=== PATIENT | female | born 1975 | race Caucasian/White ===

== ENCOUNTER 2023-11-29 13:11 | Emergency (ER) | payer BC, SELFPAY ==
[2023-11-29 13:14] VITALS: BP 135/89
--- NOTE | 2023-11-29 13:56 | ED.GENMED ---
History of Present Illness
General
Chief Complaint: Headache
Source: patient and family
Time Seen by Provider: 11/29/23 13:34
Travel History
Have you had any contact with someone who has COVID-19?: No
Do you have any symptoms of coronavirus? Fever > 100 degrees, chills, cough, shortness of breath, sore throat, loss of taste or smell, muscle aches, or headache?: No
History of Present Illness
History of Present Illness:
48-year-old female with past medical history of lupus, migraine, diverticulitis/diverticulosis presenting to the emergency department for evaluation of a migraine headache described to be diffuse, frontal, constant and accompanied with nausea and
vomiting since yesterday. Patient started on Nurtec about 2 weeks ago and taking this every other day but this did not provide her with any relief. Patient took some additional ibuprofen today but symptoms persisted prompting her to come to the ER
for further evaluation. Patient does seem to believe that her nausea and vomiting is a little bit improved now compared to yesterday. Patient is currently scheduled to get an MRI of the head on December 11 as an outpatient as part of this workup. She
notes that her migraine headaches seem to start when she had a lumbar puncture back in February 2023. She has been experiencing other symptoms including tinnitus, dizziness, weakness, facial flushing. She states that she has had extensive outpatient
labs through her acid tank liner, neurologist and primary care provider but without any specific etiology for her symptoms. Also of note patient has an appointment with her acid tank liner scheduled for tomorrow.
Past History
Past History
ED Past Medical History: Asthma, Other (Reynauds, lupus, trigeminal neuralgia) and Other (IBS, diverticulosis, diverticulitis)
ED Past Surgical History: Gynecological
Social History
Tobacco: Non-smoker
Alcohol: None
Drug: None
Personal:
Living: with family
Employment: Employed
Review of Systems
Review of Systems
All Other Systems: ROS reviewed and negative except as documented in HPI and ROS
Phy Exam
Physical Exam
Physical Exam:
GENERAL: Alert , in no apparent distress
EYE: pupils equal and reactive, 4 mm bilateral, EOMI
NECK: Supple
ENT: o/p clr, mmm.
CARDIAC: Regular rate and rhythm .
LUNGS: Clear breath sounds bilaterally, no acute respiratory distress, no wheezes/rales/rhonchi
NEUROLOGICAL: Alert and oriented, no focal neuro deficits, moves all extremities, finger-nose intact, [id number] intact, no aphasia or dysarthria
SKIN: Warm and dry, skin intact.
MUSCULOSKELETAL: well perfused.
PSYCH: Normal and appropriate interaction.
Scores
Heart Failure Risk
Heart Failure Risk Score: Not Applicable
Heart Score for Chest Pain Patients
STEMI patient?: Not applicable
Withdrawal Assessment of Alcohol
Withdrawal Assessment Completed?: Not applicable
Course
Orders/Labs/Results
Orders:
Orders
11/29/23 13:55
0.9% Sodium Chloride 1000 ml [Nss] 1,000 ml IV BOLUS
Dexamethasone Sod Phosphate [Decadron] 10 mg IV NOW STA
Diphenhydramine [Benadryl] 25 mg IV NOW STA
Metoclopramide [Reglan] 10 mg IV NOW STA
11/29/23 13:56
CT Head W/o Iv Contrast Urgent
Comment:
Reason For Exam: headache
Test Result ONCE
11/29/23 14:12
Complete Blood Count/With Diff Urgent
Comprehensive Metabolic Panel Urgent
HCG, Serum Qualitative Screen Urgent
11/29/23 14:12
11/29/23 14:12
Vital Signs
Initial and Last Documented VS:
Initial Vital Signs
Temp Pulse Resp BP Pulse Ox
98.1 F 94 18 135/89 99
11/29/23 13:14 11/29/23 13:14 11/29/23 13:14 11/29/23 13:14 11/29/23 13:14
Last Documented Vital Signs
Temp Pulse Resp BP Pulse Ox
98.1 F 91 18 128/93 100
11/29/23 13:14 11/29/23 14:23 11/29/23 14:23 11/29/23 14:23 11/29/23 14:23
MDM/Problems Addressed
Differential Diagnosis Includes:
Exacerbation of migraine headache, less concern for secondary causes of headache such as intracranial bleeding or mass, exacerbation of chronic rheumatologic medical complication
MDM/Problems Addressed:
48-year-old female with past medical history of migraines presenting to the emergency department for evaluation of an exacerbation of her migraine. Patient is scheduled to see her acid tank liner tomorrow and a follow-up visit as well as has an MRI
scheduled of the head within the coming 2 weeks. Patient notes that she really has not been to the emergency department for headache/migraine in the past. Discussed various different treatment options with the patient and we will trial Reglan,
Benadryl, Decadron and fluids. Will also obtain a CT scan of the head at patient request. Anticipate following improvement of headache patient will be able to be discharged home.
Chronic conditions affecting care: Neurological disorder
Acute Exacerbation and/or Progression of Chronic Illness: Neurological disorder
*Radiology
Radiology exam reviewed: radiology read reviewed (Unremarkable head CT)
*Pulse Oximetry
Patient hypoxic: no
*Critical Care Note
Total Time (30-74mins, 75-104mins- exclusive of procedures): Not Applicable
Data Reviewed
Review of Other/Old Records Reveals: Labs and Records
Source: patient
Patient Management
Escalation/DeEscalation of care consider admission/obs:
Patient reporting full resolution of her headache. She was able to ambulate with a steady gait and in no acute distress. Patient has follow-up with her acid tank liner tomorrow as well as she placed a call to her neurologist while in the emergency
department to expedite follow-up which she originally had scheduled for December 13. Patient aware of return precautions to the ED
ED Attending Note
-
Portions of this chart may have been created with voice recognition software.� Occasional wrong word or��sound alike� substitutions may have occurred due to the inherent limitations of voice recognition software.
Discharge Plan
Departure
Patient Disposition: Home (Routine Discharge)
Date of Disposition: 11/29/23
Time of Disposition: 16:42
Patient with high blood pressure during this ER visit?: No
Discharge Problem:
Headache
Instructions: Headache, Adult (DC)
Prescriptions:
No Action
hydroxychloroquine 200 MG tablet
300 mg PO DAILY
loratadine 10 MG tablet
10 mg PO DAILY
cetirizine [Zyrtec] 10 mg Tablet
10 mg PO DAILY
prednisone 5 mg Tablet
5 mg PO DIRECTED
pantoprazole [Protonix] 40 mg Tablet,Delayed Release (Dr/Ec)
40 mg PO DAILY
hyoscyamine sulfate [Hyoscyamine Compound] 0.125 mg/5 mL Elixir
0.125 mg PO Q6H PRN (Reason: nausea)
pregabalin [Lyrica] 75 mg Capsule
75 mg PO BID
amitriptyline 50 mg tablet
50 mg PO HS
alprazolam [Xanax] 0.5 mg Tablet
0.25 mg PO BID PRN (Reason: anxiety)
rizatriptan 10 mg tablet
10 mg PO ONCE PRN (Reason: migraine headache) Qty: 20 0RF
Rx Instructions:
May repeat dose x1 after at least 2 hours
Referrals:
Nino Bose MD [Family Provider] -
Interventions
Interventions:
*Risk Screen - Suicide Last Done: 11/29/23 13:14
*General Assessment Last Done: 11/29/23 13:14
*Neglect/Abuse Screening Last Done: 11/29/23 13:14
ED- Fall Risk Assessment Last Done: 11/29/23 14:22
*Nursing Disposition Last Done: 11/29/23 16:56
ED- Neurological Assessment Last Done: 11/29/23 14:22
Discharge Date and Time
Discharge Date/Time: 11/29/23 17:00
Print Language: LUXEMBOURGER
[2023-11-29] MEDS: NSS 1000 IV (14:11)
[2023-11-29] MEDS: BENADRYL 25 MG IV (14:13)
[2023-11-29] MEDS: REGLAN 10 MG IV (14:15)
[2023-11-29] MEDS: DECADRON 10 MG IV (14:15)
[2023-11-29 14:23] VITALS: BP 128/93
[2023-11-29 14:25] LABS: % Basophils 0.4 % (0-2); % Immature Granulocytes 0.2 % (0-0.5); % Lymphocytes 28.6 % (20.5-51.1); % Monocytes 6.9 % (1.7-9.3); % Neutrophils 59.9 % (42.2-75.2); Absolute Eosinophils 0.2 10^3/uL (0-0.7); Absolute Lymphocytes 1.6 10^3/uL (1.2-3.4); Absolute Monocytes 0.4 10^3/uL (0.1-0.6); Absolute Neutrophils 3.3 10^3/uL (1.4-6.5); Hematocrit 38.4 % (37.0-47.0); Hemoglobin 12.8 g/dL (12.0-16.0); Mean Corp Hgb Conc. 33.3 g/dL (33.0-37.0); Mean Corpuscular Volume 89.9 fL (81.0-99.0); Nucleated Red Blood Cells % 0 %; Platelet Count 264 10^3/uL (130-400); Red Blood Cell Count 4.27 10^6/uL (4.20-5.40); Red Cell Dist. Width 12.9 % (11.5-14.5); White Blood Cell Count 5.5 10^3/uL (4.8-10.8)
[2023-11-29 14:38] LABS: HCG, Serum Qualitative Screen Negative
[2023-11-29 14:43] LABS: ALT (SGPT) 13 U/L (0-35); AST (SGOT) 21 U/L (14-36); Albumin 4.3 g/dl (3.5-5.0); Alkaline Phosphatase 59 U/L (38-126); Blood Urea Nitrogen 8 mg/dl (7-17); Calcium 9.7 mg/dl (8.4-10.2); Carbon Dioxide 30 mmol/L (22-30); Chloride 104 mmol/L (98-107); Glucose 95 mg/dl (70-99); Potassium 4.5 mmol/L (3.5-5.1); Sodium 139 mmol/L (135-145); Total Bilirubin 0.6 mg/dl (0.2-1.3); Total Protein 6.6 g/dl (6.3-8.2); eGFR > 60.00
== END 2023-11-29 17:00 | disposition home or self-care (01) ==
LOC: EMR 13:11
PROVIDERS: Physician Assistant Medical; EMERGENCY PHYSICIAN Emergency Medicine; FAMILY PHYSICIAN Family Medicine
DX: R51.9 Headache, unspecified (principal); R11.2 Nausea with vomiting, unspecified; R42 Dizziness and giddiness; R53.1 Weakness
CPT/HCPCS: 99284; 96374; 96375 ×2; 96361; 70450; 80053; 84703; 85025

== ENCOUNTER → 2023-12-07 14:40 | Outpatient (REF) | payer BC, SELFPAY | LOC: HWRAD 14:40 | PROVIDERS: ATTENDING PHYSICIAN Internal Medicine Endocrinology, Diabetes & Metabolism; FAMILY PHYSICIAN Family Medicine | DX: E06.3 Autoimmune thyroiditis (principal) | CPT/HCPCS: 76536 ==

== ENCOUNTER → 2023-12-20 06:37 | Day surgery (SDC) | payer BC, SELFPAY | LOC: GI 06:37 | PROVIDERS: ATTENDING PHYSICIAN Internal Medicine | DX: R12 Heartburn (principal); R13.14 Dysphagia, pharyngoesophageal phase; R09.A2 Foreign body sensation, throat; K44.9 Diaphragmatic hernia without obstruction or gangrene; R11.10 Vomiting, unspecified; K29.50 Unspecified chronic gastritis without bleeding | CPT/HCPCS: 43249; 43239; 88305; 88342 ==

== ENCOUNTER → 2023-12-27 13:04 | Outpatient (REF) | payer BC, SELFPAY | LOC: RAD 13:04 | PROVIDERS: ATTENDING PHYSICIAN Internal Medicine; FAMILY PHYSICIAN Family Medicine | DX: R11.10 Vomiting, unspecified (principal) | CPT/HCPCS: 71046 ==

== ENCOUNTER 2024-01-03 09:40 | Emergency (ER) | payer BC, SELFPAY ==
[2024-01-03 09:59] VITALS: BP 129/96
--- NOTE | 2024-01-03 11:17 | ED.GENMED ---
History of Present Illness
General
Chief Complaint: Cold/Flu/URI Symptoms
Source: patient
Exam Limitations: none
Time Seen by Provider: 01/03/24 10:59
Nursing documentation reviewed up to this point in time: agreed with
Travel History
Have you had any contact with someone who has COVID-19?: Yes
Comment: self
Do you have any symptoms of coronavirus? Fever > 100 degrees, chills, cough, shortness of breath, sore throat, loss of taste or smell, muscle aches, or headache?: Yes
Symptoms:: sore throat
History of Present Illness
History of Present Illness:
This is a 48-year-old female with past medical history of lupus, asthma, IBS, chronic dysphagia presenting emergency department today with concerns of possible dehydration. Patient states that she is COVID-positive and has been sick for the past 5
days. Patient states that she started to feel better, however states that because of her chronic dysphagia, has not been able to get enough fluids in. She called her primary care doctor Dr. Pérez who advised Emergency Department evaluation to get
IV fluids and to check labs. Patient denies any shortness of breath, any chest pain, fevers or chills. Patient is currently being worked up by Dr. Valero for the dysphagia--she said she gets a lot of reflux and recently had an esophageal dilation.
She also notes a sore throat and some red sores in the back of the throat. She denies tongue and lip swelling.
Past History
Past History
ED Past Medical History: Asthma, Other (Reynauds, lupus, trigeminal neuralgia) and Other (IBS, diverticulosis, diverticulitis)
ED Past Surgical History: Gynecological
Social History
Tobacco: Non-smoker
Alcohol: None
Drug: None
Personal:
Living: with family
Employment: Employed
Review of Systems
Review of Systems
All Other Systems: ROS reviewed and negative except as documented in HPI and ROS
Phy Exam
Physical Exam
Physical Exam:
General: Patient is well appearing and in no acute distress; non-toxic
Skin: Warm and dry, no rashes or lesions
Head: Normocephalic, atraumatic
Eyes: Sclera non-icteric. EOMs intact. PERRLA.
Mouth: Dentition intact. Uvula midline. No tonsillar hypertrophy or exudates. Erythema noted in the posterior pharynx.
Cardiac: Regular rate and rhythm, no murmurs
Peripheral Vascular: No lower extremity swelling or edema
Pulm: Normal respiratory effort, no wheezes, rales, or rhonchi
Abdomen: No abdominal tenderness
Neuro: CN II-XII intact, no focal neurologic deficits.
Psychiatric: Appropriate mood and affect.
Course
Orders/Labs/Results
Orders:
Orders
01/03/24 11:21
Complete Blood Count/With Diff Urgent
0.9% Sodium Chloride 1000 ml [Nss] 1,000 ml IV BOLUS
01/03/24 11:22
Comprehensive Metabolic Panel Urgent
Magnesium Urgent
01/03/24 13:16
Rapid Strep Group A Urgent
PORTER Source: Throat/Pharynx
Specimen Description:
Date Specimen was Collected: 01/03/24
Time Specimen was Collected: 13:15
Abnormal Lab Results
01/03/24
11:21
WBC 3.3 L 10^3/uL
(4.8-10.8)
MCHC 32.3 L g/dL
(33.0-37.0)
MPV 10.5 H fL
(7.4-10.4)
01/03/24 11:21
01/03/24 11:22
Vital Signs
Initial and Last Documented VS:
Initial Vital Signs
Temp Pulse Resp BP Pulse Ox
98.4 F 103 20 129/96 99
01/03/24 09:59 01/03/24 09:59 01/03/24 09:59 01/03/24 09:59 01/03/24 09:59
Last Documented Vital Signs
Temp Pulse Resp BP Pulse Ox
98.4 F 81 18 116/81 100
01/03/24 09:59 01/03/24 13:57 01/03/24 13:57 01/03/24 13:57 01/03/24 13:57
MDM/Problems Addressed
Differential Diagnosis Includes:
Differentials include COVID, dehydration, achalasia, asthma exacerbation, strep pharyngitis, esophageal web or stricture
MDM/Problems Addressed:
COVID/dehydration, chronic dysphagia,
Chronic conditions affecting care:
Raynaud's, asthma, lupus, chronic dysphagia
*Pulse Oximetry
Patient hypoxic: no
*Critical Care Note
Total Time (30-74mins, 75-104mins- exclusive of procedures): Not Applicable
Data Reviewed
Review of Other/Old Records Reveals: Records (Reviewed endoscopy from 12/20/2023)
Further Testing Considered But Not Given:
Consider chest x-ray for evaluation pneumonia however patient states that she is turning a corner with her COVID and she has no shortness of breath or chest pain, patient is not hypoxic
Patient Management
Escalation/DeEscalation of care consider admission/obs:
This is a 48-year-old female with past medical history of lupus, asthma, IBS, chronic dysphagia presenting emergency department today with concerns of possible dehydration. Patient states that he has had COVID the past few days and starting to feel
better by her primary care provider sent her here for IV fluids because of the fact that she has not eat or drink as much because of her chronic dysphagia. Here in emergency department, she is very well-appearing. CBC and CMP are unremarkable. I
did observe her drink water with no problem. Patient electrolytes are within normal limits. Case was reviewed with my attending Dr. Sandoval. Also spoke to tie bucker on-call who is comfortable sending patient home with further evaluation
workup as outpatient. Discussed possible admission considering patient's symptoms have been persistent and worsening recently, however patient states that she can stay adequately hydrated at home and eat soft foods until she is able to follow-up
again. Patient does have a barium swallow scheduled for tomorrow. Patient stable for discharge
Update Note
Update Note:
12:56 pm--patient states that she feels
ED Attending Note
-
Portions of this chart may have been created with voice recognition software.� Occasional wrong word or��sound alike� substitutions may have occurred due to the inherent limitations of voice recognition software.
Discharge Plan
Departure
Patient Disposition: Home (Routine Discharge)
Date of Disposition: 01/03/24
Time of Disposition: 13:44
Patient with high blood pressure during this ER visit?: No
Condition: Good
Discharge Problem:
COVID-19
Instructions: Viral Syndrome (DC), Dehydration, Adult ED
Prescriptions:
No Action
hydroxychloroquine 200 MG tablet
300 mg PO DAILY
loratadine 10 MG tablet
10 mg PO DAILY
cetirizine [Zyrtec] 10 mg Tablet
10 mg PO DAILY
prednisone 5 mg Tablet
5 mg PO DIRECTED
pantoprazole [Protonix] 40 mg Tablet,Delayed Release (Dr/Ec)
40 mg PO DAILY
hyoscyamine sulfate [Hyoscyamine Compound] 0.125 mg/5 mL Elixir
0.125 mg PO Q6H PRN (Reason: nausea)
pregabalin [Lyrica] 75 mg Capsule
75 mg PO BID
amitriptyline 50 mg tablet
50 mg PO HS
alprazolam [Xanax] 0.5 mg Tablet
0.25 mg PO BID PRN (Reason: anxiety)
rizatriptan 10 mg tablet
10 mg PO ONCE PRN (Reason: migraine headache) Qty: 20 0RF
Rx Instructions:
May repeat dose x1 after at least 2 hours
Referrals:
Nino Bose MD [Family Provider] -
Activity Restrictions/Additional Instructions:
Your rapid strep was negative.
Please return emergency department should you develop intractable vomiting, complete inability to tolerate oral intake, lip swelling, tongue swelling, difficulty breathing, persistent fevers, lightheadedness, dizziness, or other concerning signs or
symptoms to you.
Please follow-up with your GI provider and your PCP.
Interventions
Interventions:
*Risk Screen - Suicide Last Done: 01/03/24 11:44
*General Assessment Last Done: 01/03/24 11:44
*Neglect/Abuse Screening Last Done: 01/03/24 11:44
ED- Fall Risk Assessment Last Done: 01/03/24 14:25
*ED COVID-19 Vaccine History Last Done: 01/03/24 11:44
*Nursing Disposition Last Done: 01/03/24 14:25
ED- Pulmonary Assessment Last Done: 01/03/24 11:43
Discharge Date and Time
Discharge Date/Time: 01/03/24 14:33
Print Language: ANGUILLAN
[2024-01-03] MEDS: NSS 1000 IV (11:41)
[2024-01-03 12:12] LABS: ALT (SGPT) 18 U/L (0-35); AST (SGOT) 29 U/L (14-36); Albumin 4.5 g/dl (3.5-5.0); Alkaline Phosphatase 57 U/L (38-126); Blood Urea Nitrogen 8 mg/dl (7-17); Calcium 9.2 mg/dl (8.4-10.2); Carbon Dioxide 30 mmol/L (22-30); Chloride 103 mmol/L (98-107); Glucose 85 mg/dl (70-99); Magnesium 2.2 mg/dl (1.6-2.3); Potassium 4.3 mmol/L (3.5-5.1); Sodium 141 mmol/L (135-145); Total Bilirubin 0.5 mg/dl (0.2-1.3); Total Protein 7.1 g/dl (6.3-8.2); eGFR > 60.00
[2024-01-03 12:20] LABS: % Basophils 0.6 % (0-2); % Lymphocytes 35.5 % (20.5-51.1); % Monocytes 7.6 % (1.7-9.3); % Neutrophils 56.3 % (42.2-75.2); Absolute Lymphocytes 1.2 10^3/uL (1.2-3.4); Absolute Monocytes 0.3 10^3/uL (0.1-0.6); Absolute Neutrophils 1.8 10^3/uL (1.4-6.5); Hematocrit 42.4 % (37.0-47.0); Hemoglobin 13.7 g/dL (12.0-16.0); Mean Corp Hgb Conc. 32.3 g/dL (33.0-37.0); Mean Corpuscular Hgb 29.5 pg (27.0-31.0); Mean Corpuscular Volume 91.2 fL (81.0-99.0); Mean Platelet Volume 10.5 fL (7.4-10.4); Nucleated Red Blood Cells % 0 %; Platelet Count 227 10^3/uL (130-400); Red Blood Cell Count 4.65 10^6/uL (4.20-5.40); Red Cell Dist. Width 12.9 % (11.5-14.5); White Blood Cell Count 3.3 10^3/uL (4.8-10.8)
[2024-01-03 13:57] VITALS: BP 116/81
== END 2024-01-03 14:33 | disposition home or self-care (01) ==
LOC: EMR 09:40
PROVIDERS: Physician Assistant; EMERGENCY PHYSICIAN Emergency Medicine; FAMILY PHYSICIAN Family Medicine
DX: U07.1 COVID-19 (principal); M32.9 Systemic lupus erythematosus, unspecified; J45.909 Unspecified asthma, uncomplicated; K58.9 Irritable bowel syndrome, unspecified; R13.10 Dysphagia, unspecified; I73.00 Raynaud's syndrome without gangrene; K57.90 Diverticulosis of intestine, part unspecified, without perforation or abscess without bleeding; Z91.041 Radiographic dye allergy status; Z91.040 Latex allergy status; Z91.048 Other nonmedicinal substance allergy status
CPT/HCPCS: 99284; 96360; 80053; 83735; 85025; 87070; 87880

== ENCOUNTER → 2024-01-04 09:40 | Outpatient (REF) | payer BC, SELFPAY | LOC: RST 09:40 | PROVIDERS: ATTENDING PHYSICIAN Internal Medicine; FAMILY PHYSICIAN Family Medicine | DX: R11.10 Vomiting, unspecified (principal) | CPT/HCPCS: 74230; 92611 ==

== ENCOUNTER → 2024-01-10 07:44 | Outpatient (REF) | payer BC, SELFPAY | LOC: RAD 07:44 | PROVIDERS: ATTENDING PHYSICIAN Internal Medicine; FAMILY PHYSICIAN Family Medicine | DX: R11.0 Nausea (principal) | CPT/HCPCS: 78264; A9541 ==

== ENCOUNTER 2024-03-14 14:58 | Emergency (ER) | payer BC, SELFPAY ==
[2024-03-14 15:04] VITALS: BP 163/93
--- NOTE | 2024-03-14 15:50 | ED.GENMED ---
History of Present Illness
General
Chief Complaint: Heart Rate Problem
Time Seen by Provider: 03/14/24 15:48
History of Present Illness
History of Present Illness:
HPI: The patient presents due to palpitations. She states she went to her litigation support analyst and had 'issues' and ultimately was referred to a dysautonomia specialist (her litigation support analyst at [facility]). That specialist recommended that she increase her fluid
intake as well as salt intake. This led to right knee swelling. She was ruled out for DVT. She reports having a normal BNP which ruled out CHF and states that she had normal thyroid testing. Her specialist recommended that she starts Lasix. She
is concerned because she has been having palpitations for the past week along with some vague chest discomfort but no significant shortness of breath. Today while going down a steep ramp at her house, her heart rate spontaneously left into the 150s
range. She states her blood heart rate normally is on the faster side.
EXAM:
GENERAL: Well appearing in no distress
HEENT: Moist oral mucosa
CARDIOVASCULAR: No murmurs, tachycardic heart rate, regular rhythm, No chest wall tenderness
PULMONARY: No respiratory distress, breath sounds are clear and equal
ABDOMEN: Soft with no peritoneal signs, no tenderness
NEUROLOGIC: Excellent strength all extremities, no coordination deficits
PSYCHIATRIC: Appropriate mental status, normal insight and judgement, but appears somewhat anxious
EXTREMITIES: Nontender, no edema, moves all extremities equally
SKIN: No rash, no lesions
TIME OF INITIAL ENCOUNTER: 4 PM
NUMBER AND COMPLEXITY OF PROBLEMS ADDRESSED AT THE ENCOUNTER
� Chronic conditions affecting care: Migraines, Raynaud's, diverticulitis, basal cell, lupus
� Acute Exacerbation and/or Progression of Chronic Illness: This is an acute problem
� Differential Diagnosis includes: Anxiety, thyroid disease reportedly ruled out by blood work, heart failure reportedly ruled out by blood work, electrolyte abnormality
AMOUNT AND/OR COMPLEXITY OF DATA TO BE REVIEWED AND ANALYZED
� I performed an independent evaluation of and my interpretation is:
EKG: Sinus 114, leftward axis deviation, poor R wave progression, normal intervals
CT:
X-rays:
Laboratory Studies: CBC unremarkable, D-dimer effectively rules out PE, magnesium normal, potassium normal, calcium slightly high at 10.6, troponin unremarkable
Other:
� Review of other/old records: The patient had upper endoscopy with Dr. Valero December 2023 which showed a hiatal hernia and there was some suspicion for history of eosinophilic esophagitis, she did have dilatation of the lower third
of the esophagus as well.
� Clinical information was obtained by an independent historian: I spoke to mother at bedside
� Prescriptions/Medications Considered but not given: Considered beta-olamide however she states she was on Coreg and did not tolerate this medication and it 'bottomed me out'
� Further testing considered but not performed:
RISK OF COMPLICATIONS AND/OR MORBIDITY OR MORTALITY OF PATIENT MANAGEMENT
� Social determinants of health affecting care: Lives at home
� Discussion with other providers:
� Escalation of care including admission/observation vs risk of discharge considered: The patient's blood work is unremarkable including troponin and D-dimer. While I was in the room talking to her her heart rate goes down to
about 90. She does not want to resume a beta-olamide. She is unhappy with her current litigation support analyst and she may end up seeing Dr. Jiménez or one of [place] cardiologists. She will stop taking Lasix.
Past History
Past History
ED Past Medical History: Asthma, Other (Reynauds, lupus, trigeminal neuralgia) and Other (IBS, diverticulosis, diverticulitis)
ED Past Surgical History: Gynecological
Social History
Tobacco: Non-smoker
Alcohol: None
Drug: None
Personal:
Living: with family
Employment: Employed
Phy Exam
Physical Exam
Physical Exam:
See HPI
Course
Orders/Labs/Results
Orders:
Orders
03/14/24 15:01
Electrocardiogram (*1) Urgent
Reason for Study: Palpitations
EKG- Treatment ONCE
03/14/24 16:09
Lorazepam [Ativan] 0.5 mg PO NOW STA
03/14/24 16:17
Basic Metabolic Panel Urgent
Complete Blood Count/With Diff Urgent
D-Dimer Urgent
Magnesium Urgent
Troponin I Urgent
Abnormal Lab Results
03/14/24
16:17
MCHC 32.3 L g/dL
(33.0-37.0)
Absolute Neuts (auto) 9.1 H 10^3/uL
(1.4-6.5)
Absolute Lymphs (auto) 0.8 L 10^3/uL
(1.2-3.4)
Neutrophils % 84.8 H %
(42.2-75.2)
Lymphocytes % 7.8 L %
(20.5-51.1)
Glucose 103 H mg/dl
(70-99)
Calcium 10.6 H mg/dl
(8.4-10.2)
03/14/24 16:17
03/14/24 16:17
Vital Signs
Initial and Last Documented VS:
Initial Vital Signs
Temp Pulse Resp BP Pulse Ox
98.2 F 115 18 163/93 100
03/14/24 15:04 03/14/24 15:04 03/14/24 15:04 03/14/24 15:04 03/14/24 15:04
Last Documented Vital Signs
Temp Pulse Resp BP Pulse Ox
98.2 F 98 18 163/93 100
03/14/24 15:04 03/14/24 16:45 03/14/24 16:45 03/14/24 15:04 03/14/24 16:58
*Critical Care Note
Total Time (30-74mins, 75-104mins- exclusive of procedures): Not Applicable
ED Attending Note
-
Portions of this chart may have been created with voice recognition software.� Occasional wrong word or��sound alike� substitutions may have occurred due to the inherent limitations of voice recognition software.
Discharge Plan
Departure
Patient Disposition: Home (Routine Discharge)
Date of Disposition: 03/14/24
Time of Disposition: 17:10
Patient with high blood pressure during this ER visit?: Yes
Discharge Problem:
Palpitations
Prescriptions:
No Action
hydroxychloroquine 200 MG tablet
300 mg PO DAILY
loratadine 10 MG tablet
10 mg PO DAILY
cetirizine [Zyrtec] 10 mg Tablet
10 mg PO DAILY
prednisone 5 mg Tablet
5 mg PO DIRECTED
pantoprazole [Protonix] 40 mg Tablet,Delayed Release (Dr/Ec)
40 mg PO DAILY
hyoscyamine sulfate [Hyoscyamine Compound] 0.125 mg/5 mL Elixir
0.125 mg PO Q6H PRN (Reason: nausea)
pregabalin [Lyrica] 75 mg Capsule
75 mg PO BID
amitriptyline 50 mg tablet
50 mg PO HS
alprazolam [Xanax] 0.5 mg Tablet
0.25 mg PO BID PRN (Reason: anxiety)
rizatriptan 10 mg tablet
10 mg PO ONCE PRN (Reason: migraine headache) Qty: 20 0RF
Rx Instructions:
May repeat dose x1 after at least 2 hours
Referrals:
Nino Bose MD [Family Provider] -
Ramakrishna Payton MD [Active] - Follow up in 2-3 days
Activity Restrictions/Additional Instructions:
The cause of your symptoms is unclear. Your complete blood cell count is normal. The D-dimer screening test shows no sign of blood clot. Your potassium, sodium, magnesium, and kidney function are all normal. Troponin test (blood test for heart
attack) shows no sign of heart attack. Follow-up with your litigation support analyst or consider seeing Dr. Jiménez again. I have also given you the contact information for a local litigation support analyst here.
Interventions
Interventions:
*General Assessment Last Done: 03/14/24 15:04
*Neglect/Abuse Screening Last Done: 03/14/24 15:04
ED- Fall Risk Assessment Last Done: 03/14/24 16:59
ED- Cardiac Assessment Last Done: 03/14/24 16:59
ED- Pulmonary Assessment Last Done: 03/14/24 16:59
Discharge Date and Time
Print Language: MONGOLIAN
[2024-03-14 16:17] VITALS: BMI 26.9
[2024-03-14] MEDS: ATIVAN 0.5 MG PO (16:27)
[2024-03-14 16:29] LABS: % Basophils 0.7 % (0-2); % Eosinophils 1.9 % (0-6); % Immature Granulocytes 0.4 % (0-0.5); % Lymphocytes 7.8 % (20.5-51.1); % Monocytes 4.4 % (1.7-9.3); % Neutrophils 84.8 % (42.2-75.2); Absolute Basophils 0.1 10^3/uL (0-0.2); Absolute Eosinophils 0.2 10^3/uL (0-0.7); Absolute Lymphocytes 0.8 10^3/uL (1.2-3.4); Absolute Monocytes 0.5 10^3/uL (0.1-0.6); Absolute Neutrophils 9.1 10^3/uL (1.4-6.5); Hematocrit 39.3 % (37.0-47.0); Hemoglobin 12.7 g/dL (12.0-16.0); Mean Corp Hgb Conc. 32.3 g/dL (33.0-37.0); Mean Corpuscular Hgb 28.9 pg (27.0-31.0); Mean Corpuscular Volume 89.5 fL (81.0-99.0); Mean Platelet Volume 9.7 fL (7.4-10.4); Nucleated Red Blood Cells % 0 %; Platelet Count 327 10^3/uL (130-400); Red Blood Cell Count 4.39 10^6/uL (4.20-5.40); Red Cell Dist. Width 13.5 % (11.5-14.5); White Blood Cell Count 10.7 10^3/uL (4.8-10.8)
[2024-03-14 16:43] LABS: Blood Urea Nitrogen 13 mg/dl (7-17); Calcium 10.6 mg/dl (8.4-10.2); Carbon Dioxide 30 mmol/L (22-30); Chloride 104 mmol/L (98-107); Estimated Creatinine Clearance 87 ml/min; Glucose 103 mg/dl (70-99); Magnesium 2.3 mg/dl (1.6-2.3); Potassium 4.9 mmol/L (3.5-5.1); Sodium 141 mmol/L (135-145); eGFR > 60.00
[2024-03-14 16:50] LABS: D-Dimer < 0.27 ug/mlFEU (0.00-0.50)
[2024-03-14 16:55] LABS: Troponin I < 0.012 ng/ml
[2024-03-14 17:00] VITALS: BP 116/95
== END 2024-03-14 17:43 | disposition home or self-care (01) ==
LOC: EMR 14:58
PROVIDERS: EMERGENCY PHYSICIAN Emergency Medicine; FAMILY PHYSICIAN Family Medicine
DX: R00.2 Palpitations (principal); R07.89 Other chest pain; R03.0 Elevated blood-pressure reading, without diagnosis of hypertension; J45.909 Unspecified asthma, uncomplicated; K58.9 Irritable bowel syndrome, unspecified; G50.0 Trigeminal neuralgia; M32.9 Systemic lupus erythematosus, unspecified; I73.00 Raynaud's syndrome without gangrene; K57.90 Diverticulosis of intestine, part unspecified, without perforation or abscess without bleeding; G43.909 Migraine, unspecified, not intractable, without status migrainosus; Z91.041 Radiographic dye allergy status; Z91.040 Latex allergy status; Z91.048 Other nonmedicinal substance allergy status
CPT/HCPCS: 99283; 80048; 83735; 84484; 85025; 85379; 93005

== ENCOUNTER 2024-03-21 19:04 | Inpatient (IN) | payer BC, SELFPAY ==
[2024-03-21] VITALS (19 sets, daily range): BP systolic 90–147; BP diastolic 57–97; BMI 27.7; BMI 26.9
[2024-03-21 12:30] LABS: % Basophils 0.6 % (0-2); % Eosinophils 1.7 % (0-6); % Immature Granulocytes 0.3 % (0-0.5); % Lymphocytes 10.3 % (20.5-51.1); % Monocytes 4.4 % (1.7-9.3); % Neutrophils 82.7 % (42.2-75.2); Absolute Basophils 0.1 10^3/uL (0-0.2); Absolute Eosinophils 0.2 10^3/uL (0-0.7); Absolute Lymphocytes 1.4 10^3/uL (1.2-3.4); Absolute Monocytes 0.6 10^3/uL (0.1-0.6); Absolute Neutrophils 11.5 10^3/uL (1.4-6.5); Hematocrit 36.7 % (37.0-47.0); Mean Corp Hgb Conc. 32.7 g/dL (33.0-37.0); Mean Corpuscular Hgb 29.7 pg (27.0-31.0); Mean Corpuscular Volume 90.8 fL (81.0-99.0); Mean Platelet Volume 10.1 fL (7.4-10.4); Nucleated Red Blood Cells % 0 %; Platelet Count 347 10^3/uL (130-400); Red Blood Cell Count 4.04 10^6/uL (4.20-5.40); Red Cell Dist. Width 13.1 % (11.5-14.5); White Blood Cell Count 13.9 10^3/uL (4.8-10.8)
[2024-03-21 12:47] LABS: ALT (SGPT) 16 U/L (0-35); AST (SGOT) 22 U/L (14-36); Alkaline Phosphatase 68 U/L (38-126); Blood Urea Nitrogen 10 mg/dl (7-17); Calcium 9.7 mg/dl (8.4-10.2); Carbon Dioxide 28 mmol/L (22-30); Chloride 104 mmol/L (98-107); Estimated Creatinine Clearance 98 ml/min; Glucose 113 mg/dl (70-99); Potassium 4.7 mmol/L (3.5-5.1); Sodium 138 mmol/L (135-145); Total Bilirubin 0.3 mg/dl (0.2-1.3); Total Protein 6.1 g/dl (6.3-8.2); eGFR > 60.00
[2024-03-21 12:54] LABS: APTT 26.7 Sec (23.4-35.0); INR 0.95; PT 12.7 Sec (11.4-14.6)
[2024-03-21] MEDS: ZOFRAN 4 MG IV (13:24)
[2024-03-21] MEDS: SOLU-CORTEF 200 MG IV (13:24)
[2024-03-21] MEDS: OMNIPAQUE 50 ML PO (13:24)
[2024-03-21] MEDS: BENADRYL 50 MG IV ×2 (13:24→16:14)
[2024-03-21] MEDS: NSS 1000 IV ×2 (13:27→21:07)
[2024-03-21] MEDS: MORPHINE SULFATE 4 MG IV (13:37)
--- NOTE | 2024-03-21 15:09 | ED.GENMED ---
History of Present Illness
General
Chief Complaint: Abdominal Symptoms
Source: patient, records, spouse and family
Exam Limitations: none
Time Seen by Provider: 03/21/24 12:42
Nursing documentation reviewed up to this point in time: agreed with
History of Present Illness
History of Present Illness:
Patient is a 49-year-old female with multiple medical problems and presents today with severe lower abdominal pain with bright red blood per rectum. Patient states this morning she had a small bowel movement and then developed severe lower
abdominal pain. There is no blood at that time. Patient used an enema and had manish red blood with clots. Patient has a known history of hemorrhoids. Patient was nauseous without vomiting. Patient was also bloated with chills but no fever.
Patient denies any symptoms. Patient has a history of multiple GI issues including irritable bowel syndrome, GERD, polyps, hiatal hernia as well as narrowing of the esophagus. Patient denies any chest pain or shortness of breath.
Past History
Past History
ED Past Medical History: Asthma, Other (Reynauds, lupus, trigeminal neuralgia, dysautonomia) and Other (IBS, diverticulosis, diverticulitis)
ED Past Surgical History: Gynecological
Social History
Tobacco: Non-smoker
Alcohol: None
Drug: None
Personal:
Living: with family
Employment: Employed
Review of Systems
Review of Systems
All Other Systems: ROS reviewed and negative except as documented in HPI and ROS
Constitutional: Reports fatigue and chills
EENT: Reports no symptoms
Respiratory: Reports no symptoms
Cardiac: Reports no symptoms
ABD/GI: Reports abdominal pain, nausea, bloody stools and anorexia; Denies vomiting
: Reports no symptoms
Musculoskeletal: Reports no symptoms
Skin: Reports no symptoms
Neurological: Reports no symptoms
Hematologic/Lymphatic: Denies bruising
Phy Exam
Physical Exam
Physical Exam:
Physical Exam
General: moderate distress, alert and appropriate, well nourished, dry mucous membranes
HENT: Normocephalic, supple with no lymphadenopathy, no thyromegaly
Eyes: Clear sclera, conjuctiva without injection
Heart: Regular rhythm and rate. No S3, S4. No murmur. No NVD
Lungs: No respiratory distress, no stridor, lung sounds clear and equal bilaterally, chest wall symmetrical and nontender
Abdomen: Soft, moderate diffuse lower abdominal tenderness with voluntary guarding but no rebound, mostly in the left lower quadrant and suprapubic regions, no organomegaly, no CVA tenderness, BS diminished. Rectal shows good
sphincter tone with nonthrombosed or bleeding external hemorrhoids. There is gross bright red blood digitally
Neuro: Alert and oriented x 3, CN II - XII intact, no motor focality, no cerebellar dysfunction
Skin: no rash. Pale
Psychiatric: well kept. interactive and cooperative
Extremities: No edema, cyanosis, tenderness, Good and equal peripheral pulses.
Course
Orders/Labs/Results
Orders:
Orders
03/21/24 11:55
CMP [Comprehensive Metabolic Panel] Urgent
Complete Blood Count/With Diff Urgent
03/21/24 12:24
PT/INR [Prothrombin Time] Urgent
PTT Urgent
03/21/24 12:25
Type+Screen Urgent
03/21/24 13:11
0.9% Sodium Chloride 1000 ml [Nss] 1,000 ml IV BOLUS
Diphenhydramine [Benadryl] 50 mg IV NOW STA
HYDROmorphone [Dilaudid] 1 mg IV NOW STA
Hydrocortisone Sod Succinate [Solu-Cortef] 200 mg IV NOW STA
Iohexol [Omnipaque] See Protocol PO NOW STA
Ondansetron Injectable [Zofran] 4 mg IV NOW STA
03/21/24 13:12
CT Abd/pel W Iv And Oral Contr Urgent
Comment:
Reason For Exam: lower abd ain bleeding
03/21/24 13:33
Morphine Sulfate 4 mg IV NOW STA
03/21/24 14:43
Morphine Sulfate 2 mg IV NOW STA
03/21/24 16:12
Diphenhydramine [Benadryl] 50 mg IV NOW STA
03/21/24 16:13
Diphenhydramine [Benadryl] 50 mg .ROUTE .STK-MED ONE
Abnormal Lab Results
03/21/24
11:55
WBC 13.9 H 10^3/uL
(4.8-10.8)
RBC 4.04 L 10^6/uL
(4.20-5.40)
Hct 36.7 L %
(37.0-47.0)
MCHC 32.7 L g/dL
(33.0-37.0)
Absolute Neuts (auto) 11.5 H 10^3/uL
(1.4-6.5)
Neutrophils % 82.7 H %
(42.2-75.2)
Lymphocytes % 10.3 L %
(20.5-51.1)
Glucose 113 H mg/dl
(70-99)
Total Protein 6.1 L g/dl
(6.3-8.2)
03/21/24 11:55
03/21/24 11:55
Vital Signs
Initial and Last Documented VS:
Initial Vital Signs
Temp Pulse Resp BP Pulse Ox
98.1 F 103 18 90/57 97
03/21/24 11:45 03/21/24 11:45 03/21/24 11:45 03/21/24 11:45 03/21/24 11:45
Last Documented Vital Signs
Temp Pulse Resp BP Pulse Ox
98.1 F 129 12 125/96 97
03/21/24 11:45 03/21/24 17:00 03/21/24 17:00 03/21/24 17:00 03/21/24 17:00
*Radiology
Radiology exam reviewed: radiology read reviewed ( findings of stercoral colitis in the left pelvis, with evidence for contain perforation, with adjacent foci ofextraluminal air, but no free intraperitoneal air )
*Pulse Oximetry
Patient hypoxic: no
*EKG
Interpreted by ED Provider?: NA
*Business Machine Mechanic Interpretation
Rate: tachycardiac
Interpretation: abnormal
Heart Rate: 110
Rhythm: sinus
*Critical Care Note
Total Time (30-74mins, 75-104mins- exclusive of procedures): Not Applicable
Update Note
Update Note:
Patient has a mildly elevated white blood cell count but rectal bleeding and significant pain. CT scan shows a contained perforation. Patient will be admitted.
ED Attending Note
-
Portions of this chart may have been created with voice recognition software.� Occasional wrong word or��sound alike� substitutions may have occurred due to the inherent limitations of voice recognition software.
Discharge Plan
Departure
Patient Disposition: Admit
Date of Disposition: 03/21/24
Time of Disposition: 17:13
Admit to: Telemetry
Admit to doctor: Hospitalist
Presentation/result/management discussed w/ accepting MD/DO: Hospitalist
Patient with high blood pressure during this ER visit?: No
Condition: Fair
Covid-19: Not Applicable
Discharge Problem:
Stercoral colitis, Contained intestinal perforation
Prescriptions:
No Action
hydroxychloroquine 200 MG tablet
300 mg PO DAILY
cetirizine [Zyrtec] 10 mg Tablet
10 mg PO DAILY
pantoprazole [Protonix] 40 mg Tablet,Delayed Release (Dr/Ec)
40 mg PO DAILY
pregabalin [Lyrica] 75 mg Capsule
75 mg PO BID
alprazolam [Xanax] 0.5 mg Tablet
0.5 mg PO BID PRN (Reason: anxiety)
Patient Comments:
03/21/24: last filled 03/19/24 for 60 tablets at [facility]
polyethylene glycol 3350 [Miralax] 17 gram Powder In Packet
17 g PO DAILYPRN PRN (Reason: constipation)
sucralfate 1 gram Tablet
1 g PO TIDPRN PRN (Reason: ulcers)
cyanocobalamin (vitamin B-12) 1,000 mcg Tablet
1,000 mcg PO DAILY
amitriptyline 10 mg Tablet
20 mg PO HS
levothyroxine 50 mcg Tablet
50 mcg PO DAILY
hyoscyamine sulfate 0.125 mg tablet, sublingual
0.125 mg PO Q8HPRN PRN (Reason: nausea)
ibuprofen 200 mg Tablet
600 mg PO Q6HPRN PRN (Reason: mild pain)
montelukast 10 mg Tablet
10 mg PO HS
ondansetron 4 mg Tablet,Disintegrating
4 mg PO DAILYPRN PRN (Reason: nausea)
progesterone micronized 100 mg capsule
100 mg PO HS
estradiol 0.025 mg/24 hr patch semiweekly
1 patch topical Q72H
metoprolol tartrate 25 mg Tablet
25 mg PO BID
Systane (PF) 0.4-0.3 % Dropperette
1 drp BOTH EYES Q6HPRN PRN (Reason: dry eyes)
cholecalciferol (vitamin D3) [Vitamin D3] 50 mcg (2,000 unit) Tablet
50 mcg PO DAILY
baclofen 5 mg Tablet
5 mg PO Q8HPRN PRN (Reason: muscle spasm)
Nurtec ODT 75 mg Tablet,Disintegrating
75 mg PO DAILYPRN PRN (Reason: migraines)
Referrals:
Nino Bose MD [Family Provider] -
Interventions
Interventions:
*Risk Screen - Suicide Last Done: 03/21/24 11:45
*General Assessment Last Done: 03/21/24 11:45
*Neglect/Abuse Screening Last Done: 03/21/24 11:45
ED- Fall Risk Assessment Last Done: 03/21/24 12:38
*ED COVID-19 Vaccine History Last Done: 03/21/24 11:45
WZ-[id number]-Qufdmpvyqs Assessment Last Done: 03/21/24 12:27
Discharge Date and Time
Print Language: PERSIAN
[2024-03-21] MEDS: MORPHINE SULFATE 2 MG IV ×2 (15:18→23:35)
[2024-03-21] MEDS: LEVAQUIN 100 IV (17:54)
[2024-03-21] MEDS: FLAGYL 500 MG 100 IV (17:54)
--- NOTE | 2024-03-21 18:43 | HPS.HSE ---
Family Physician
-
Family Physician: Nino Bose
Chief Complaint
-
abdominal pain
History of Present Illness
49-year-old female past medical history of systemic lupus erythematosus, Raynaud's, trigeminal neuralgia, dysautonomia, recently diagnosed POTS disease, GERD, hiatal hernia, esophageal narrowing, degenerative disc disease, IBS, asthma, hemorrhoids,
hypothyroidism, constipation presenting with severe bilateral lower abdominal pain worse in the left lower quadrant. Patient has been constipated for the last 3 to 4 days despite taking MiraLAX.
Today she had a small bowel movement without blood in the morning and the stool was thin in caliber. Afterwards she developed severe lower abdominal pain. She took an enema and then afterwards she had diarrhea with bright red blood. She later had
further diarrhea with clots in the stool. She has nausea but without vomiting. She has chills without fever. Denies any urinary symptoms. She denies any chest pain and symptoms of shortness of breath.
Patient states she was recently diagnosed with dysautonomia/POTS disease. She was started on metoprolol but is not tolerating the medication well due to fatigue and unable to take it due to blood pressure under 100 systolic at times. She has been
evaluated at [facility] with plans to start another medication. Her heart rate has been persistently elevated over the past few weeks.
She recently has been on steroids for lupus flare and weaned herself off of steroids a week ago. She is supposed to start methotrexate and IVIG in the near future but this has been delayed.
She denies smoking or alcohol or any drugs.
Medical History
Past Medical History
Past Medical History: Reports Other (systemic lupus erythematosus, Raynaud's, trigeminal neuralgia, dysautonomia, recently diagnosed POTS disease, GERD, hiatal hernia, esophageal narrowing, degenerative disc disease, IBS, asthma, hemorrhoids,
hypothyroidism, constipation )
Past Surgical History: Reports Other (uterine ablation)
Social History
Tobacco: Non-smoker
Alcohol: None
Drug: None
Family History
Family History: Not pertinent
Allergies / Home Medications
Allergies reflects when Allergies were last updated in [facility].
Home Medications with original date entered in [facility]
Allergy/Medication List:
Allergies
Allergy/AdvReac Type Severity Reaction Status Date / Time
Gadolinium-Containing Allergy Mild Rash Verified 03/21/24 11:45
Contrast Medi
latex Allergy Rash Verified 03/21/24 11:[address]
CT Scan Dye Allergy Rash Uncoded 01/03/24 09:58
seasonal allergies Allergy watery Uncoded 01/03/24 09:58
eyes,
runny nose
Home Medications
hydroxychloroquine 200 mg tablet 300 mg PO DAILY 03/20/18
alprazolam 0.5 mg tablet (Xanax) 0.5 mg PO BID PRN anxiety 03/07/23
cetirizine 10 mg tablet (Zyrtec) 10 mg PO DAILY 03/07/23
pantoprazole 40 mg tablet,delayed release (Protonix) 40 mg PO DAILY 03/07/23
pregabalin 75 mg capsule (Lyrica) 75 mg PO BID 03/07/23
amitriptyline 10 mg tablet 20 mg PO HS 03/21/24
baclofen 5 mg tablet 5 mg PO Q8HPRN PRN muscle spasm 03/21/24
cholecalciferol (vitamin D3) 50 mcg (2,000 unit) tablet (Vitamin D3) 50 mcg PO DAILY 03/21/24
cyanocobalamin (vitamin B-12) 1,000 mcg tablet 1,000 mcg PO DAILY 03/21/24
estradiol 0.025 mg/24 hr semiweekly transdermal patch 1 patch topical Q72H 03/21/24
hyoscyamine sulfate 0.125 mg sublingual tablet 0.125 mg PO Q8HPRN PRN nausea 03/21/24
ibuprofen 200 mg tablet 600 mg PO Q6HPRN PRN mild pain 03/21/24
levothyroxine 50 mcg tablet 50 mcg PO DAILY 03/21/24
metoprolol tartrate 25 mg tablet 25 mg PO BID 03/21/24
montelukast 10 mg tablet 10 mg PO HS 03/21/24
ondansetron 4 mg disintegrating tablet 4 mg PO DAILYPRN PRN nausea 03/21/24
peg 400-propylene glycol (PF) 0.4 %-0.3 % eye drops in a dropperette (Systane (PF)) 1 drp BOTH EYES Q6HPRN PRN dry eyes 03/21/24
polyethylene glycol 3350 17 gram oral powder packet (Miralax) 17 g PO DAILYPRN PRN constipation 03/21/24
progesterone micronized 100 mg capsule 100 mg PO HS 03/21/24
rimegepant 75 mg disintegrating tablet (Nurtec ODT) 75 mg PO DAILYPRN PRN migraines 03/21/24
sucralfate 1 gram tablet 1 g PO TIDPRN PRN ulcers 03/21/24
Review of Systems
-
History Source: Patient
A 12 point ROS was completed and negative except as noted: Yes
Constitutional: Reports No Symptoms
EENT: Reports No Symptoms
Respiratory: Reports No Symptoms
Cardiac: Reports No Symptoms
Abdomen/GI: Reports See HPI
: Reports No Symptoms
Musculoskeletal: Reports No Symptoms
Skin: Reports No Symptoms
Neurological: Reports No Symptoms
Endocrine: Reports No Symptoms
Hematologic/Lymphatic: Reports No Symptoms
Psych: Reports No Symptoms
Physical Exam
Vital Signs
Vital Signs
Temp Pulse Resp BP Pulse Ox
98.1 F 129 12 125/96 97
03/21/24 11:45 03/21/24 17:00 03/21/24 17:00 03/21/24 17:00 03/21/24 17:00
Physical Exam
General: Well Developed, Well Nourished and No Apparent Distress
HEENT: NormoCephalic, Moist mucous membranes and Atraumatic
Respiratory: Clear
Cardiac: S1/S2 and Regular Rhythm; No Murmur or Rub
GI: Soft, Non Distended, Normal Bowel Sounds and Tender (tenderness, guarding ); No Organomegaly
Rectal: Deferred by Provider
Musculoskeletal: No Clubbing, No Cyanosis and No Edema
Skin: No Rash
Neuro: Nonfocal/grossly intact
Laboratory Results
-
03/21/24 11:55
03/21/24 11:55
Laboratory Results
PT 12.7 Sec (11.4-14.6) 03/21/24 12:24
INR 0.95 03/21/24 12:24
APTT 26.7 Sec (23.4-35.0) 03/21/24 12:24
Total Bilirubin 0.3 mg/dl (0.2-1.3) 03/21/24 11:55
AST 22 U/L (14-36) 03/21/24 11:55
ALT 16 U/L (0-35) 03/21/24 11:55
Alkaline Phosphatase 68 U/L (38-126) 03/21/24 11:55
Data Reviewed
-
Lab Data: Labs Reviewed by me
Old Records: Reviewed
Impression/Plan
-
IMPRESSION:
PLAN:
# Stercoral colitis with contained perforation and rectal bleeding
# Recent constipation
-N.p.o.
-IV fluids
-Zosyn
-Zofran, Dilaudid
-Continue MiraLAX
-Colorectal surgery consulted
# Sinus tachycardia secondary to pain/infection/POTS disease/dysautonomia
# Recently diagnosed POTS disease/dysautonomia
-Monitor with IV fluids
-Continue metoprolol but only taking 6.25 mg once a day
History of hemorrhoids
Systemic lupus erythematosus
-Continue hydroxychloroquine
-Wean off of steroids last week
-Supposed to start methotrexate/IVIG in the near future as per her engrosser
Raynaud's disease
Trigeminal neuralgia
GERD/hiatal hernia
-Continue Protonix,
Esophageal narrowing
Degenerative disc disease
-Continue baclofen, ibuprofen/Lyrica
-Continue amitriptyline
IBS
Asthma
-Continue montelukast
Anxiety
-Continue Xanax
Hypothyroidism
-Continue levothyroxine
History of migraines
-Continue as needed Nurtec
Full code
DVT prophylaxis�SCDs
N.p.o.
--- NOTE | 2024-03-21 21:00 | PTCARENOTE ---
Pt received from ED via stretcher. Pt independent from stretcher to bed. Vitals obtained and stable, oriented to room and call unger within reach. Pt complained of 10/10 pain and dilaudid 0.5 mg IV administered. Will continue to monitor.
[2024-03-21] MEDS: DILAUDID 0.5 MG IV (21:11)
[2024-03-21] MEDS: ELAVIL 20 MG PO (21:12)
[2024-03-21] MEDS: LYRICA 75 MG PO (21:12)
[2024-03-21] MEDS: XANAX 0.5 MG PO (21:13)
[2024-03-21] MEDS: LOPRESSOR 6.25 MG PO (21:24)
[2024-03-21] MEDS: SINGULAIR 10 MG PO (22:20)
[2024-03-21] MEDS: ZOSYN 50 IV (22:20)
[2024-03-21] MEDS: TYLENOL 650 MG PO (23:36)
[2024-03-22] VITALS (18 sets, daily range): BP systolic 94–124; BP diastolic 60–93
--- NOTE | 2024-03-22 00:20 | W.PN.UPDATE ---
Update Note
Progress Note Update
RN asked AIRPLANE RENTAL CLERK to come see the patient as she was very uncomfortable. Patient seen and evaluated, Stated she is in lot of pain and unable to even stand. Abdomen mildly distended, tender with mild palpation, noted guarding. unable to auscultate BS at
present. VS 100.4, 112, 147/84, Dr. Vilchis made aware. advised no CT at present, and switch to Dilaudid IV. Patient refused IV Dilaudid, will give extra 1mg Morphine IV. Labs ordered.
[2024-03-22] MEDS: MORPHINE SULFATE 1 MG IV (01:32)
--- NOTE | 2024-03-22 01:41 | PTCARENOTE ---
Shortly after arriving to [facility] Pt complained of 10/10 LLQ abdomen pain, RN administered PRN IV dilaudid 0.5 mg without much pain relief. Pt expressed that she was administered morphine in ED and it worked better for her pain. RN notified TOY MAKER (Atiya)
and the order was changed from PRN dilaudid to PRN IV morphine 2mg. IV morphine administered and pt was still complaining of 10/10 pain. RN noted patient distended belly, absent bowel sounds and temp of 100.5 and again notified TOY MAKER (Atiya). TOY MAKER
came to floor to assess patient herself, PT vitals @2357 BP 147/84, temp 100.5, HR 112. TOY MAKER notified surgeon who advised no CT scan and to continue to monitor pt for low BP and worsening fever. Surgery to see patient in early AM. Pt also go an
additional dose of IV morphine 1mg.
[2024-03-22 01:50] LABS: Blood Urea Nitrogen 10 mg/dl (7-17); Calcium 8.6 mg/dl (8.4-10.2); Carbon Dioxide 26 mmol/L (22-30); Chloride 107 mmol/L (98-107); Estimated Creatinine Clearance 101 ml/min; Glucose 113 mg/dl (70-99); Potassium 3.6 mmol/L (3.5-5.1); Sodium 136 mmol/L (135-145); eGFR > 60.00
[2024-03-22 02:00] LABS: Hematocrit 28.8 % (37.0-47.0); Hemoglobin 9.8 g/dL (12.0-16.0); Mean Corpuscular Hgb 28.7 pg (27.0-31.0); Mean Corpuscular Volume 84.2 fL (81.0-99.0); Mean Platelet Volume 10.2 fL (7.4-10.4); Platelet Count 323 10^3/uL (130-400); Red Blood Cell Count 3.42 10^6/uL (4.20-5.40); Red Cell Dist. Width 13.2 % (11.5-14.5); White Blood Cell Count 15.7 10^3/uL (4.8-10.8)
[2024-03-22] MEDS: ZOSYN 50 IV ×4 (04:12→21:54)
[2024-03-22] MEDS: SYNTHROID 50 MCG PO (06:20)
[2024-03-22] MEDS: MORPHINE SULFATE 2 MG IV ×3 (06:25→20:23)
[2024-03-22 07:38] LABS: % Basophils 0.1 % (0-2); % Immature Granulocytes 0.5 % (0-0.5); % Lymphocytes 5.3 % (20.5-51.1); % Monocytes 4.2 % (1.7-9.3); % Neutrophils 89.9 % (42.2-75.2); Absolute Immature Granulocytes 0.1 10^3/uL (0-0.05); Absolute Lymphocytes 0.8 10^3/uL (1.2-3.4); Absolute Monocytes 0.6 10^3/uL (0.1-0.6); Absolute Neutrophils 13.3 10^3/uL (1.4-6.5); Hematocrit 31.5 % (37.0-47.0); Hemoglobin 10.9 g/dL (12.0-16.0); Mean Corp Hgb Conc. 34.6 g/dL (33.0-37.0); Mean Corpuscular Hgb 29.9 pg (27.0-31.0); Mean Corpuscular Volume 86.3 fL (81.0-99.0); Mean Platelet Volume 9.9 fL (7.4-10.4); Nucleated Red Blood Cells % 0 %; Platelet Count 231 10^3/uL (130-400); Red Blood Cell Count 3.65 10^6/uL (4.20-5.40); Red Cell Dist. Width 13.3 % (11.5-14.5); White Blood Cell Count 14.8 10^3/uL (4.8-10.8)
[2024-03-22 08:26] LABS: ALT (SGPT) 15 U/L (0-35); AST (SGOT) 24 U/L (14-36); Albumin 3.4 g/dl (3.5-5.0); Alkaline Phosphatase 64 U/L (38-126); Blood Urea Nitrogen 11 mg/dl (7-17); Calcium 8.8 mg/dl (8.4-10.2); Carbon Dioxide 19 mmol/L (22-30); Chloride 109 mmol/L (98-107); Estimated Creatinine Clearance 87 ml/min; Glucose 70 mg/dl (70-99); Potassium 3.6 mmol/L (3.5-5.1); Sodium 138 mmol/L (135-145); Total Bilirubin 0.8 mg/dl (0.2-1.3); Total Protein 5.6 g/dl (6.3-8.2); eGFR > 60.00
--- NOTE | 2024-03-22 09:15 | WOUNDNOTE ---
[facility] RN NOTE: Patient seen by this narrative writer for stoma marking. Surgery is planned for this morning. At time of assessment, patient was accompanied by and reported pain 10/10 in LLQ even after recently being medicated for pain. Patient also
reported nausea and weakness and was unable to change position from semi-sitting position. Abdomen distended and tender. Patient made aware that surgeon will make final determination of ostomy placement and pouching issues may occur do to changes in
abdominal topography after surgery. Care was taken to avoid creases and folds. Patient was marked x4 quadrants. RN Reyna to medicate patient for nausea. Will follow up with patient after surgery.
[2024-03-22] MEDS: ZOFRAN 4 MG IV (09:24)
[2024-03-22] MEDS: NSS 1000 IV ×2 (09:26→16:11)
[2024-03-22] MEDS: LYRICA PO (09:43)
[2024-03-22] MEDS: LOPRESSOR PO ×2 (09:43→20:15)
--- NOTE | 2024-03-22 10:03 | CON.CRS ---
Consultation
-
Date/Time Consultation Requested: 03/21/2024, 19:54
Date/Time Consultation Performed: 03/22/2024, 08:30
Requesting Provider: Mayela Wakefield MD
Performing Provider: Marcus Vilchis MD
Reason for Consultation: stercoral colitis
Medical History
-
Chief Complaint: abdominal pain
History of Present Illness:
49-year-old female with past medical history of systemic lupus erythematous, Raynaud's disease, trigeminal neuralgia, pots disease, IBS, and chronic constipation presents to the ER yesterday complaining of severe abdominal pain in the left lower
quadrant. The patient is typically constipated at baseline and uses MiraLAX. She states that she has been treated for her lupus by Dr. Joaquim Olivia at [place] and was recently weaned off of steroids.
Chronically she is constipated and her last bowel movement was yesterday afternoon. Afterwards she had bright red blood in the toilet. She states she has had hemorrhoid problems in the past. After the bowel movement she excruciating abdominal
pain. She does not believe she has had a fever at home. She is not hungry. She currently feels bloated. She has never had abdominal surgery.
In the ER her WBC was 13.9 and she was started on antibiotics. CT of the abdomen pelvis showed at the junction of the distal descending colon and sigmoid colon there is a rounded focal area of stool in the colonic lumen with adjacent colonic wall
thickening and stranding of pericolonic fat. Findings compatible with stercoral colitis. There is adjacent foci of extraluminal air compatible with contained perforation. No evidence for free intraperitoneal air. This morning her WBC is 15.7 and
now 14.8. She is currently tachycardic in the 110s and has a fever of 100.7. We have been consulted for further surgical evaluation.
Past Medical History
Past Medical History: Other (systemic lupus erythematosus, Raynaud's, trigeminal neuralgia, dysautonomia, recently diagnosed POTS disease, GERD, hiatal hernia, esophageal narrowing, degenerative disc disease, IBS, asthma, hemorrhoids,
hypothyroidism, constipation)
Past Surgical History: Other (uterine ablation)
Social History
Tobacco: Non-Smoker
Alcohol: None
Drug: None
Family History
Family History: Reviewed & Not Pertinent
Allergies / Home Medications
Allergy/AdvReac Type Severity Reaction Status Date / Time
Gadolinium-Containing Allergy Rash Verified 03/21/24 20:27
Contrast Medi
Iodinated Contrast Media Allergy Rash Verified 03/21/24 23:09
latex Allergy Rash Verified 03/21/24 11:45
pollen extracts Allergy SEASONAL-watery Verified 03/21/24 20:27
eyes,
runny nose
�Medication �Instructions �Recorded �Confirmed �Type
hydroxychloroquine 200 mg tablet 300 mg PO DAILY lupus 03/20/18 03/21/24 History
alprazolam 0.5 mg tablet (Xanax) 0.5 mg PO BID PRN anxiety 03/07/23 03/21/24 History
cetirizine 10 mg tablet (Zyrtec) 10 mg PO DAILY Allergies 03/07/23 03/21/24 History
pantoprazole 40 mg tablet,delayed 40 mg PO DAILY Gastrointestinal 03/07/23 03/21/24 History
release (Protonix) Issue
pregabalin 75 mg capsule (Lyrica) 75 mg PO BID Pain 03/07/23 03/21/24 History
amitriptyline 10 mg tablet 20 mg PO HS Sleep/Mental health 03/21/24 03/21/24 History
baclofen 5 mg tablet 5 mg PO Q8HPRN PRN muscle spasm 03/21/24 03/21/24 History
cholecalciferol (vitamin D3) 50 50 mcg PO DAILY Supplement 03/21/24 03/21/24 History
mcg (2,000 unit) tablet (Vitamin
D3)
cyanocobalamin (vitamin B-12) 1,000 mcg PO DAILY Supplement 03/21/24 03/21/24 History
1,000 mcg tablet
estradiol 0.025 mg/24 hr 1 patch topical Q72H Hormonal Agent 03/21/24 03/21/24 History
semiweekly transdermal patch
hyoscyamine sulfate 0.125 mg 0.125 mg PO Q8HPRN PRN nausea 03/21/24 03/21/24 History
sublingual tablet
ibuprofen 200 mg tablet 600 mg PO Q6HPRN PRN mild pain 03/21/24 03/21/24 History
levothyroxine 50 mcg tablet 50 mcg PO DAILY Thyroid 03/21/24 03/21/24 History
metoprolol tartrate 25 mg tablet 25 mg PO BID Blood Pressure 03/21/24 03/21/24 History
montelukast 10 mg tablet 10 mg PO HS Allergies 03/21/24 03/21/24 History
ondansetron 4 mg disintegrating 4 mg PO DAILYPRN PRN nausea 03/21/24 03/21/24 History
tablet
peg 400-propylene glycol (PF) 0.4 1 drp BOTH EYES Q6HPRN PRN dry eyes 03/21/24 03/21/24 History
%-0.3 % eye drops in a dropperette
(Systane (PF))
polyethylene glycol 3350 17 gram 17 g PO DAILYPRN PRN constipation 03/21/24 03/21/24 History
oral powder packet (Miralax)
progesterone micronized 100 mg 100 mg PO HS Hormonal Agent 03/21/24 03/21/24 History
capsule
rimegepant 75 mg disintegrating 75 mg PO DAILYPRN PRN migraines 03/21/24 03/21/24 History
tablet (Nurtec ODT)
sucralfate 1 gram tablet 1 g PO TIDPRN PRN ulcers 03/21/24 03/21/24 History
Review of Systems
-
History Source: Patient
Constitutional: Fever
Abdomen/GI: Abdominal Pain and Constipated
A 10 point review of systems was completed, and was negative except as per HPI.
Physical Exam
Vital Signs
Temp 100.7 F H 03/22/24 09:58
Pulse 114 03/22/24 08:00
Resp Rate 17 03/22/24 08:00
Blood pressure 124/67 03/22/24 08:00
SaO2 92 03/22/24 08:00
03/21/24 03/22/24 03/23/24
06:59 06:59 06:59
Actual Weight 73.391 kg
Body Mass Index (BMI) 26.9
Lab Results / Allergies
03/22/24 07:05
03/22/24 07:05
WBC 14.8 10^3/uL (4.8-10.8) H 03/22/24 07:05
Hgb 10.9 g/dL (12.0-16.0) L 03/22/24 07:05
Hct 31.5 % (37.0-47.0) L 03/22/24 07:05
Plt Count 231 10^3/uL (130-400) D 03/22/24 07:05
Abs Immat Gran (auto) 0.1 10^3/uL (0-0.05) H 03/22/24 07:05
Neutrophils % 89.9 % (42.2-75.2) H 03/22/24 07:05
Allergy/AdvReac Type Severity Reaction Status Date / Time
Gadolinium-Containing Allergy Rash Verified 03/21/24 20:27
Contrast Medi
Iodinated Contrast Media Allergy Rash Verified 03/21/24 23:09
latex Allergy Rash Verified 03/21/24 11:45
pollen extracts Allergy SEASONAL-watery Verified 03/21/24 20:27
eyes,
runny nose
Physical Exam
General: Well Developed, Well Nourished and No Apparent Distress
GI: Tender (Severe left lower quadrant tenderness with peritoneal signs) and Distended
Neuro: AO x 3
Data Reviewed
-
CT Scan: Image Personally Visualized and interpreted, Report Reviewed by me and Discussed with Patient
Labs: Labs Reviewed by me, Discussed with Physician and Discussed with Patient
Old Records: Reviewed
Assessment / Plan
-
Assessment: 49-year-old female with a past medical history of lupus, pots disease, IBS with constipation presents to the ER with constipation, fever, and left lower quadrant pain found to have stercoral colitis on CT
Plan:
Given her abdominal exam, CT findings, fever with tachycardia and WBC, discussion was had with patient and at bedside regarding surgery. Surgery would involve a colectomy with colostomy creation. This was discussed in length with the
patient and her who are in agreement. If surgery is not performed, risks of worsening peritonitis and sepsis were discussed. Patient to remain NPO. Wound RN has been consulted for stoma marking. Continue IV antibiotics. Teds and SCDs
ordered. Discussed with nursing and hospitalist. Anticipate early afternoon for OR.
--- NOTE | 2024-03-22 10:48 | W.PN.HOSP.TC ---
Addendum entered and electronically signed by Jory Araujo MD 03/22/24 11:01:
acute urinary retention--banks
due to upcoming surgery will hold all oral meds
Original Note:
Today's Communication/Plan
-
to OR today
Assessment / Plan
Assessment / Plan
pt is a 49 year old female
Stercoral colitis with contained perforation and rectal bleeding (history of hemorrhoids)--apprec colorectal surgery input--for OR today 03/22--N.p.o./IVF/pain control/zofran/zosyn
Sinus tachycardia secondary to pain/infection/POTS disease/dysautonomia--Recently diagnosed POTS disease/dysautonomia--IVF--Continue metoprolol but only taking 6.25 mg once a day
Systemic lupus erythematosus--Continue hydroxychloroquine--Wean off of steroids last week (will likely need brief stress dose steroids perioperatively)--Supposed to start methotrexate/IVIG in the near future as per her land surveyor
Raynaud's disease
Trigeminal neuralgia
GERD/hiatal hernia--Continue Protonix,
Esophageal narrowing
Degenerative disc disease--Continue baclofen, ibuprofen/Lyrica--Continue amitriptyline
IBS
Asthma--Continue montelukast
Anxiety--Continue Xanax
Hypothyroidism--Continue levothyroxine
History of migraines--Continue as needed Nurtec
code status -Full code
DVT prophylaxis�SCDs
Anticipated Discharge: > 48 hours
Subjective/Interval History
-
Date of Service: March 22, 2024
pt c/o pain, inability to pee, feeling scared
Objective Data
-
Labs:
Laboratory Results
03/22/24 03/22/24
01:10 07:05
WBC 15.7 H 14.8 H
Hgb 9.8 L 10.9 L
Hct 28.8 L 31.5 L
Plt Count 323 231 D
Sodium 136 138
Potassium 3.6 3.6
Chloride 107 109 H
Carbon Dioxide 26 19 L
BUN 10 11
Creatinine 0.6 0.7
Glucose 113 H 70
Calcium 8.6 8.8
Total Bilirubin 0.8
AST 24
ALT 15
Alkaline Phosphatase 64
Vital Signs:
max temp for 24 hours
03/21/24
23:57
Temp 100.5 F H
Vital Signs
Temp Pulse Resp BP Pulse Ox
100.7 F H 114 17 124/67 92
03/22/24 09:58 03/22/24 08:00 03/22/24 08:00 03/22/24 08:00 03/22/24 08:00
Review of Systems
-
All other systems: Reviewed and negative
Abdomen/GI: Reports Abdominal Pain
Genitourinary: Reports Difficulty Voiding
Physical Exam
-
General: Well Developed, Well Nourished and Other (ill appearing)
HEENT: Normocephalic, Atraumatic and Other (flushed cheeks)
Respiratory: Clear to Auscultation; Negative Wheezes or Rhonchi
Cardiac: Regular Rhythm and S1/S2; Negative Murmur
GI: Soft, Tender (diffusely tender with guarding and rebound) and Distended; Negative Normal Bowel Sounds (no bowel sounds to my exam)
Musculoskeletal: No Clubbing, No Cyanosis and No Edema
Neuro: Awake
--- NOTE | 2024-03-22 11:35 | CM ---
Patient seen at bedside with physician. Patient states that she lives with her and has an inlaw suite for her mother that now lives with them also. Home is a ranch style with an elevated section for mother- [facility] style. Patient has 2
steps to enter. Patient has had no VN or SNF needs in the past and her PCP is Dr. Bose at [facility] in [place]. Patient uses the [facility] on [address], [place]. 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 Patient is for surgery today and is apprehensive. Patient declined member of the legislative council or Jamal call stating her mother would call her favorite member of the legislative council to come. Patient discharge needs pending surgical outcome; PT/OT assessment when medically
appropriate. CM will continue to follow for discharge planning needs.
Plan; home with VN vs SNF pending medical treatment plan
--- NOTE | 2024-03-22 13:51 | W.IMMPOSTOP ---
Surgical Immed Post Op Note
-
Primary Surgeon: Marcus Vilchis MD
Assistants: GABBY Munoz & LUCAS Salmeron
Pre-op Diagnosis: Perforated stercoral colitis
Post-op Diagnosis: Same
Procedure Performed: Sigmoid colectomy (partial) and end colostomy (Daniela's procedure)
Anesthesia Type: HOMERO block/GET
Specimen / Cultures: Peritoneal cultures (aerobic and anaerobic)
Sigmoid colon (suture is proximal)
Estimated Blood Loss: 15cc
Complications: None
Operative Findings: Large impacted stool ball in the sigmoid colon partially extruded
Moderate proximal fecal burden (no cecum)
Patient's and mother updated.
[2024-03-22] MEDS: DILAUDID 0.25 MG IV (15:34)
[2024-03-22] MEDS: TORADOL 15 MG IV ×2 (15:36→20:14)
--- NOTE | 2024-03-22 16:46 | PTCARENOTE ---
pt received from PACU to room 2115 at 1625. pt alert and oriented to room, bed controls, call unger and plan of care with verbalized understanding. [place] Sump NGT patent and connected to 80mm hg continuous suction-yellow liquid noted in tubing.
midline abdominal incision clean and dry, colostomy patent to Left abdomen-stoma small, red and budded. no output noted. Landers patent w/clear yellow urine noted. IVF infusing. family at bedside. will observe.
--- NOTE | 2024-03-22 17:38 | W.PN.UPDATE ---
Update Note
Progress Note Update
i just stopped by to check on Marilin (she's my intermodal dispatcher outpatient). Long discussion with her and mom as well.
Please let us know if there's anything we can do to help.
[2024-03-22] MEDS: LYRICA 75 MG PO (20:14)
[2024-03-22] MEDS: CHLORASEPTIC/SORE THROAT SPRAY 1 SPRAY PO (21:53)
[2024-03-22] MEDS: NON-FORMULARY ITEM PO (22:02)
[2024-03-22] MEDS: NON-FORMULARY ITEM 100 MG PO (22:03)
[2024-03-23] MEDS: NSS 1000 IV ×2 (02:33→14:27)
[2024-03-23] MEDS: TORADOL 15 MG IV ×2 (02:33→07:53)
[2024-03-23] MEDS: MORPHINE SULFATE 2 MG IV ×2 (03:16→07:54)
[2024-03-23] MEDS: ZOFRAN 4 MG IV (03:16)
[2024-03-23] MEDS: ZOSYN 50 IV ×4 (03:16→23:00)
[2024-03-23 03:33] VITALS: BP 104/67
[2024-03-23 03:43] VITALS: BMI 28.4
[2024-03-23] MEDS: SYNTHROID 50 MCG PO (05:39)
[2024-03-23 07:00] VITALS: BP 105/67
[2024-03-23 07:47] LABS: Blood Urea Nitrogen 15 mg/dl (7-17); Calcium 7.9 mg/dl (8.4-10.2); Carbon Dioxide 23 mmol/L (22-30); Chloride 107 mmol/L (98-107); Estimated Creatinine Clearance 99 ml/min; Glucose 93 mg/dl (70-99); Magnesium 2.5 mg/dl (1.6-2.3); Potassium 3.5 mmol/L (3.5-5.1); Sodium 136 mmol/L (135-145); eGFR > 60.00
[2024-03-23] MEDS: NSS (PRESERVATIVE FREE) 10 ML IV (07:52)
[2024-03-23] MEDS: LYRICA PO (07:52)
[2024-03-23] MEDS: LOPRESSOR PO (07:52)
[2024-03-23] MEDS: PROTONIX IV 40 MG IV (07:53)
[2024-03-23 08:18] LABS: Hematocrit 27.9 % (37.0-47.0); Hemoglobin 9.3 g/dL (12.0-16.0); Mean Corp Hgb Conc. 33.3 g/dL (33.0-37.0); Mean Corpuscular Hgb 29.2 pg (27.0-31.0); Mean Corpuscular Volume 87.5 fL (81.0-99.0); Mean Platelet Volume 10.3 fL (7.4-10.4); Platelet Count 298 10^3/uL (130-400); Red Blood Cell Count 3.19 10^6/uL (4.20-5.40); Red Cell Dist. Width 13.4 % (11.5-14.5); White Blood Cell Count 16.1 10^3/uL (4.8-10.8)
--- NOTE | 2024-03-23 10:30 | W.PN.HOSP.TC ---
Today's Communication/Plan
-
cont supportive care
Assessment / Plan
Assessment / Plan
pt is a 49 year old female
Stercoral colitis with contained perforation and rectal bleeding (history of hemorrhoids)--apprec colorectal surgery input--s/p OR 03/22--N.p.o./IVF/pain control/zofran/zosyn--NGT per surgery--hold all oral meds, change to IV if able
Sinus tachycardia secondary to pain/infection/POTS disease/dysautonomia--Recently diagnosed POTS disease/dysautonomia--renew IVF--Continue metoprolol IV
Systemic lupus erythematosus--Continue hydroxychloroquine--Wean off of steroids last week (has not needed stress dose steroids perioperatively)--Supposed to start methotrexate/IVIG in the near future as per her finance professional
Raynaud's disease
Trigeminal neuralgia
GERD/hiatal hernia--Continue Protonix,
Esophageal narrowing
Degenerative disc disease--Continue baclofen, ibuprofen/Lyrica--Continue amitriptyline
IBS
Asthma--Continue montelukast
Anxiety--Continue Xanax
Hypothyroidism--Continue levothyroxine
History of migraines--Continue as needed Nurtec
code status -Full code
DVT prophylaxis�SCDs
Anticipated Discharge: > 48 hours
Subjective/Interval History
-
Date of Service: March 23, 2024
pt very anxious
Objective Data
-
Labs:
Laboratory Results
03/23/24
06:25
WBC 16.1 H
Hgb 9.3 L
Hct 27.9 L
Plt Count 298 D
Sodium 136
Potassium 3.5
Chloride 107
Carbon Dioxide 23
BUN 15
Creatinine 0.7
Glucose 93
Calcium 7.9 L
Vital Signs:
max temp for 24 hours
03/23/24
07:00
Temp 98.2 F
Vital Signs
Temp Pulse Resp BP Pulse Ox
98.2 F 95 14 105/67 98
03/23/24 07:00 03/23/24 07:00 03/23/24 07:00 03/23/24 07:00 03/23/24 07:00
I&O
03/22/24 03/23/24 03/24/24
06:59 06:59 06:59
Intake Total 1890 / 1890
Output Total 2600 / 2600
Balance -710 / -710
Review of Systems
-
All other systems: Reviewed and negative
Psych: Reports Anxious
Physical Exam
-
General: Well Developed, Well Nourished and No Apparent Distress
HEENT: Normocephalic, Atraumatic and Other (NGT)
Respiratory: Clear to Auscultation; Negative Wheezes or Rhonchi
Cardiac: Regular Rhythm and S1/S2; Negative Murmur
GI: Soft, Nontender and Nondistended; Negative Normal Bowel Sounds (hypoactive)
Musculoskeletal: No Clubbing, No Cyanosis and No Edema
Neuro: Awake and Alert
Psych: Anxious
--- NOTE | 2024-03-23 10:58 | W.PN.CRS1 ---
Today's Communication / Plan
-
Continue NG tube
Continue antibiotics
Lovenox
Out of bed
Assessment/Plan
-
POD#1 Sigmoid colectomy (partial) and end colostomy (Daniela's procedure)
-WBC 16.1. Trend. Vitals normal.
-Start Lovenox tonight for DVT prophylaxis. Teds and SCDs in place.
-Continue Landers today for I's and O's. Remove in AM.
-Out of bed as tolerated.
-Continue NG tube and will await bowel function.
-Wound RN for stoma teaching.
-Continue IV Zosyn.
-OR pathology pending.
-Pain control: Toradol standing, acetaminophen as needed, morphine as needed.
Subjective Data
Procedure
03/22/2024- Sigmoid colectomy (partial) and end colostomy (Daniela's procedure)
Subjective Data
Date of Service: March 23, 2024
Patient states she had some pain overnight. She feels gas coming from her flatus. She has no nausea or vomiting. She is very anxious regarding her surgery.
Objective Data
-
Vital Signs
Temp Pulse Resp BP Pulse Ox
98.2 F 95 14 105/67 98
03/23/24 07:00 03/23/24 07:00 03/23/24 07:00 03/23/24 07:00 03/23/24 07:00
Intake & Output
03/22/24 03/23/24 03/24/24
06:59 06:59 06:59
Intake Total 1890 / 1890
Output Total 2600 / 2600
Balance -710 / -710
Intake:
IV fluids (Total) 1650 / 1650
Normosol 300 / 300
IV piggybacks 150 / 150
Amount instilled into GI Tube ( 90 / 90
Total)
[place] Sump 90 / 90
Output:
Gastrointestinal tube output ( 350 / 350
Total)
[place] Sump 350 / 350
Urine, Landers 2250 / 2250
Other:
Number of approximated LARGE 1
amounts of urine
Lab Results
03/23/24 06:25
03/23/24 06:25
Physical Exam
-
General: No Acute Distress and AOx3
Abdomen: Soft, Non Distended and Tender (mild around incisions)
Skin: Warm and Dry
[2024-03-23 11:00] VITALS: BP 118/72
--- NOTE | 2024-03-23 12:00 | WOUNDNOTE ---
[facility] RN note: Patient s/p Chang's colostomy 03/22/24. Some dark old blood noted on stoma which wiped away easily. Stoma pink and slightly budded about 1 1/8 inch diameter. Ostomy appliance intact. Instructed patient how to open and close pouch, cut
wafer and snap on pouch. 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 Colostomy supplies given (Rasheed wafer # [id number], Kale seals, Rasheed pouch # [id number]) and colostomy teaching folder given. Patient signed [email or web address] fax
permission form for a [email or web address] ostomy secure starter kit. Will fax to [email or web address]. Appliance change with teaching due Tuesday or Tuesday. Patient notified this scenario writer is away next week and another ostomy nurse will follow next week. Ostomy nurse Melodie
Latesha or Jenny Murry to follow early next week.
[2024-03-23] MEDS: MORPHINE SULFATE 4 MG IV ×2 (12:02→20:17)
--- NOTE | 2024-03-23 12:35 | PN.CDI ---
CDI
- -
CDI:
Physician Documentation Request
Admit Date: 03/21/24 19:04
Dear Doctor Van,
Please review the following and provide your response in the progress notes.
Clinical Indicators:
03/23 S/P Sigmoid colectomy (partial) and end colostomy (Daniela's procedure)
#Estimated Blood Loss: 15cc
Laboratory Tests
03/21/24 03/22/24 03/22/24
11:55 01:10 07:05
Hgb 12.0 9.8 L 10.9 L
03/23/24
06:25
Hgb 9.3 L
Based on the above and your clinical assessment, please clarify in the progress notes, the appropriate diagnosis, if significant, that supports the above abnormalities and additional evaluation, monitoring and/or treatment rendered:
Acute Blood Loss Anemia
Abnormal lab value
Other(please specify)
Use of terms such as suspected, likely, concern for, or probable (associated with a specific diagnosis that is being evaluated, monitored, or treated as if it exists) are acceptable and can be coded in the inpatient setting, when documented at the
time of discharge.
Thank you,
Jory Diane RN BSN CCDS
CDI Specialist
please contact via tiger text
Please use your independent medical judgment in providing your response.
--- NOTE | 2024-03-23 12:40 | PN.CDI ---
CDI
- -
CDI:
Physician Documentation Request
Admit Date: 03/21/24 19:04
Dear Doctor Van,
Please review the following and provide your response in the progress notes.
Clinical Indicators:
ED, 03/21
#Stercoral colitis, Contained intestinal perforation
03/21 Initial VS: 98.1 103 18 90/57 97%
Selected Entries
03/21/24
23:57
Temp 100.5 F H
Pulse 112
Selected Entries
03/22/24
09:58
Temp 100.7 F H
Laboratory Tests
03/21/24 03/22/24 03/22/24
11:55 01:10 07:05
WBC 13.9 H 15.7 H 14.8 H
03/23/24
06:25
WBC 16.1 H
Please clarify which most accurately describes the patient's presentation on admission :
Sepsis, POA
SIRS due to non infectious source(please specify etiology)
Other(please specify)
Sepsis
Systemic manifestations of infection, with 2 or more SIRS criteria which include:
-Fever > 100.4 degrees F or hypothermia < 96.8 degrees F
-Leukocytosis - WBC > 12,000 or leukopenia, WBC < 4,000 or > 10% bands
-Tachycardia - > 90 beats per minute
-Tachypnea - RR > 20 breaths per minute or PaCO2 < 32 mmHg
Source: Merck Manual 2013
-Indicate the known or suspected organism
-Indicate the known or suspected underlying infection, such as UTI, pneumonia or cellulitis
-Indicate if there is associated organ dysfunction, such as renal or respiratory failure
SIRS due to a non-infectious source
-Indicate the known or suspected etiology
-Indicate if there is associated organ dysfunction, such as renal or respiratory failure
Use of terms such as suspected, likely, concern for, or probable (associated with a specific diagnosis that is being evaluated, monitored, or treated as if it exists) are acceptable and can be coded in the inpatient setting, when documented at the
time of discharge.
Thank you,
Jory Diane RN BSN CCDS
CDI Specialist
please contact via tiger text
Please use your independent medical judgment in providing your response.
--- NOTE | 2024-03-23 12:50 | PN.CDI ---
CDI
- -
CDI:
Physician Documentation Request
Admit Date: 03/21/24 19:04
Dear Doctor Deng,
Please review the following and provide your response in the progress notes.
Clinical Indicators:
03/22 Post Operative Note
#Pre-op Diagnosis: Perforated stercoral colitis
#Procedure Performed: Sigmoid colectomy (partial) and end colostomy (Daniela's procedure)
#Operative Findings: Large impacted stool ball in the sigmoid colon partially extruded
Moderate proximal fecal burden (no cecum)
03/23, PN
#POD#1 Sigmoid colectomy (partial) and end colostomy (Daniela's procedure)
#-WBC 16.1.
#-Continue IV Zosyn.
03/22/24 12:06 Wound Culture - Preliminary
Abdomen Gram Stain - Preliminary
Gram negative bacilli
Enterococcus species
Based on the above and your clinical assessment, please clarify in the progress notes, the appropriate diagnosis, if significant, that supports the above abnormalities and additional evaluation, monitoring and/or treatment rendered:
Peritonitis
Stercoral colitis only
Other(please specify)
Use of terms such as suspected, likely, concern for, or probable (associated with a specific diagnosis that is being evaluated, monitored, or treated as if it exists) are acceptable and can be coded in the inpatient setting, when documented at the
time of discharge.
Thank you,
Jory Diane RN BSN CCDS
CDI Specialist
Please contact via tiger text
Please use your independent medical judgment in providing your response.
--- NOTE | 2024-03-23 13:18 | VNURNOTE ---
Home Health Liaison met with patient at bedside to discuss [facility] nurse/therapy, visits, schedule and homebound status. Patient is agreeable and understands that visits at home will be 1-2 x per week to assess and teach medical management. [facility]
brochure provided with contact information. Patient is aware that [facility] will contact them for start of care in within a few days after discharge from .
[facility] referral completed in [facility].
--- NOTE | 2024-03-23 13:20 | WOUNDNOTE ---
Attempted to fax [employer] ostomy secure starter kit request however fax attempt failed twice. t/c [facility] and their voicemail stated they are closed until Tuesday.
[2024-03-23] MEDS: TORADOL IV (14:51)
[2024-03-23 15:00] VITALS: BP 121/84
--- NOTE | 2024-03-23 15:07 | W.PN.UPDATE ---
Update Note
Progress Note Update
I was in the stone and flagged down by the RN. The patient is tearful and anxious about what happened to her. She is concerned about her colostomy. I spoke with patient for about ten minutes and reassured her. Her colostomy bag does have a clot with
a very scant amount of old blood in the bag. I am holding Lovenox/Toradol until this clears.
--- NOTE | 2024-03-23 15:24 | CM ---
Patient seen at bedside with physician. Patient stated that she is very anxious and was happy about [facility] to follow. Patient met with [place] and has consult with psych. CM will continue to follow for discharge planning needs.
Plan; home with [facility]
--- NOTE | 2024-03-23 15:47 | CON.MD ---
Consultation - Medical
-
patient seen chart reviewed discussed w nursing andrew and dr connelly. the patient is a 49 year old woman who came to er originally bc concern about palpitations. she had noted pulse in the 50's. she was ms'ed to home and in the next day had a
large bowel bloody bowel movement and it was found she had perforated her colon (dx stercoral colitis) . she required emergency surgery and at this point has what she hopes will be a temporary colostomy. she is extremely anxious. 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 she is very preoccupied with concern that something will go wrong. mother who was at the bedside with patient consent said the patient fears she will go to sleep and not wake up. patient admitted this
is true. she has been watching her heart rate, her temp obsessively. nursing staff and her hospitalist fear that her anxiety is getting in the way of her healing and suggested ativan. she takes a number of medications for medical comorbidities
which are on hold as she has an ng tube including xanax which she started taking about two years ago and she is very fearful of a reaction to medication that will make her feel worse or harm her in some way. she reports no hx of psychiatric sx
including until two plus years ago when she had very complicated dental work which took months and which she feels caused trigeminal neuralgia. just thinking about this dental work seemed to cause her stress. at this point her health just seemed to
spiral out of control leading to ongoing anxiety . see medical hx below. mom fees her job of 20 years as an oncology nurse contributed to the dampening of her spirits and a darker outlook which patient does not necessarily deny. the patient has
difficulty sleeping given anxiety. she can enjoy some activities but her illnesses have taken their toll here. she has never had suicidal thoughts. there is nothing to suggest psychosis
past psych hx see above
medical hx patient is here for perforated colon secondary to stercoral colotis requiring emergency surgery and colostomy. she has hx trigeminal neuralgia, pots syndrome anemia (hgb 9.3) hypothyroid sle (she was taking steroids and worries this
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
colonic polyps raynauds dysautonomia noted ca 7.9 mg 2.5 ecg nl qtc bp 118/72 afebrile (98.7)
fh grandfather may have been depressed aunt w depression
substance abuse denied
social resides w h in 40's after a 20 year courtship h supportive mother at bedside very supportive father of ca. patient said so many family member of ca that is what propelled her to be a oncology nurse for the past twenty
years. 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
mse alert ox3 cooperative and thoughtful. she was anxious admittedly so. no unusual behaviors speech and thought process nl mood is dysphoric affect appropirate no si or psychosis above aver intelligence insight judgment ok
dx adjustment disorder w mixed fx ptsd
recommendations this patient has been through a lot over the course of her life in addition to recent medical travails. her work as an oncology nurse, the sickness and in her own family etc have contributed in my opinion to what she is
dealing today. i also think she is somewhat angry that she was dc'ed from er a couple of days ago believing that her concerns were given short shrift. she does not seem to me like a person who gets angry very easily ...perhaps her anger is
represented right now as anxiety she was encouraged to use the ativan. she asked that i decrease the dose from o.5 mg to o.25 which i did but encouraged her to ask for it to be reincreased back to o.5 mg if o.25 ineffective. i suggested remeron odt
7.5mg perhaps as a continuous churn buttermaker aid for anxiety but she asked for it to be prn so she could think about it. it is ordered prn sleep but the idea is more for a continuous churn buttermaker aid to anxiety. she is on a number of anticholinergic medications which may have
contributed to her bowel issues..elavil among them. i dc'ed the elavil and xanax which were being held as she is npo so she does not get elavil remeron ativan and xanax by accident....would rethink some of the anticholinergic medications she has
been prescribed. patient could benefit from a therapist to talk about many issues including future career paths etc. she seems to have in some ways given up on a future...maybe she was already giving up before this happened and this is the straw
that broke the camel's back. at any rate she is denying suicidality and i do not see her as an imminent suicide risk but she seems so be a person with some possibility to remake her life into something more fulfilling. psych will see her over the
weekend.
[2024-03-23] MEDS: ATIVAN 0.25 MG IV (15:55)
[2024-03-23] MEDS: OFIRMEV 100 IV (17:13)
[2024-03-23 19:30] VITALS: BP 99/67
[2024-03-23] MEDS: NON-FORMULARY ITEM PO (22:40)
[2024-03-23 23:20] VITALS: BP 119/71
[2024-03-24] MEDS: PEPCID 20 MG IV (00:37)
[2024-03-24] MEDS: NSS (PRESERVATIVE FREE) 8 ML IV (00:37)
[2024-03-24] MEDS: ZOSYN 50 IV ×4 (04:05→22:05)
[2024-03-24] MEDS: OFIRMEV 100 IV (04:43)
[2024-03-24] MEDS: MORPHINE SULFATE 4 MG IV ×3 (04:57→19:57)
[2024-03-24] MEDS: NSS 1000 IV (06:23)
[2024-03-24 07:25] VITALS: BP 124/82
[2024-03-24 08:29] LABS: Hemoglobin 8.8 g/dL (12.0-16.0); Mean Corp Hgb Conc. 32.6 g/dL (33.0-37.0); Mean Corpuscular Hgb 28.2 pg (27.0-31.0); Mean Corpuscular Volume 86.5 fL (81.0-99.0); Mean Platelet Volume 10.1 fL (7.4-10.4); Platelet Count 293 10^3/uL (130-400); Red Blood Cell Count 3.12 10^6/uL (4.20-5.40); Red Cell Dist. Width 13.6 % (11.5-14.5); White Blood Cell Count 12.1 10^3/uL (4.8-10.8)
[2024-03-24] MEDS: NSS (PRESERVATIVE FREE) 10 ML IV (08:54)
[2024-03-24] MEDS: PROTONIX IV 40 MG IV (08:54)
[2024-03-24] MEDS: ZOFRAN 4 MG IV ×2 (09:10→21:04)
[2024-03-24 09:43] LABS: Blood Urea Nitrogen 14 mg/dl (7-17); Chloride 107 mmol/L (98-107); Estimated Creatinine Clearance 99 ml/min; Glucose 65 mg/dl (70-99); Potassium 3.3 mmol/L (3.5-5.1); Sodium 138 mmol/L (135-145); eGFR > 60.00
[2024-03-24 09:44] LABS: ALT (SGPT) 13 U/L (0-35); AST (SGOT) 25 U/L (14-36); Albumin 2.7 g/dl (3.5-5.0); Alkaline Phosphatase 72 U/L (38-126); Carbon Dioxide 22 mmol/L (22-30); Magnesium 2.4 mg/dl (1.6-2.3); Total Bilirubin 0.6 mg/dl (0.2-1.3); Total Protein 4.9 g/dl (6.3-8.2)
[2024-03-24 11:25] VITALS: BP 119/78
--- NOTE | 2024-03-24 12:01 | W.PN.UPDATE ---
Update Note
Progress Note Update
Psychiatry follow up for anxiety management. Chart reviewed. Seen by Dr. Delgado yesterday at which time Ativan PRN dose was decreased, Remeron PRN was started and Elavil and Xanax orders were discontinued. Patient states that today is the first day
she has felt able to relax a little bit. She tried low dose PRN ativan yesterday and is not sure if it helped. We discussed option for an increase in dose if needed. She did not try Remeron PRN last night because she was scared. We reviewed the
potential risks/benefits of the medication and she states she will consider trying it tonight. Her family is here to visit today and she reports a strong support system.
MSE- good eye contact. fluent speech. Anxious mood and affect. logical and goal directed. denies SI/HI/AVH. good insight/judgement. fully oriented
Plan- patient will consider trying Remeron 7.5mg tonight. Can consider increase in Ativan PRN dose if needed. Will need outpatient psychiatric treatment after discharge both for formulating a longterm medication regimen and individual therapy.
Psychiatry will follow up tomorrow.
--- NOTE | 2024-03-24 12:02 | W.PN.CRS1 ---
Addendum entered and electronically signed by Joseph Vilchis MD 03/24/24 16:59:
POD#2 Sigmoid colectomy (partial) and end colostomy (Daniela's procedure) for stercoral colitis and peritonitis
Original Note:
Today's Communication / Plan
-
NG tube clamping trial
Continue antibiotics
Monitor hemoglobin
Out of bed
Patient's family at bedside, all questions answered
Assessment/Plan
-
POD#2 Sigmoid colectomy (partial) and end colostomy (Daniela's procedure) for stercoral colitis
-WBC normalizing. Trend. Vitals normal.
-Hemoglobin is slightly low at 8.8, Lovenox and Toradol are on hold. Teds and SCDs in place.
-The [place] was removed this morning as she has urinated.
-Out of bed as tolerated.
-NG tube clamping trial today
-Wound RN for stoma teaching.
-Continue IV Zosyn. Peritoneal cultures with E. coli and Enterococcus. E. coli is sensitive to Zosyn.
-OR pathology pending.
-Pain control: acetaminophen as needed, morphine as needed.
Subjective Data
Procedure
03/22/2024- Sigmoid colectomy (partial) and end colostomy (Daniela's procedure)
Subjective Data
Date of Service: March 24, 2024
She still feels a bit distended but the ostomy is passing flatus and some burgundy blood. She is having small amount of stool.
Objective Data
-
Vital Signs
Temp Pulse Resp BP Pulse Ox
98.2 F 102 16 124/82 98
03/24/24 07:25 03/24/24 07:25 03/24/24 07:25 03/24/24 07:25 03/24/24 08:00
Intake & Output
08/03/24/24 03/25/24
06:59 06:59 06:59
Intake Total 1890 / 1890 191 / 191
Output Total 2600 / 2600 965 / 1265 300 / 300
Balance -710 / -710 945 / 645 -300 / -300
Intake:
Oral fluids 960 / 960
IV fluids (Total) 1650 / 1650 660 / 660
Normosol 300 / 300
IV piggybacks 150 / 150 200 / 200
Amount instilled into GI Tube ( 90 / 90 90 / 90
Total)
[place] 90 / 90 90 / 90
Output:
Gastrointestinal tube output ( 350 / 350 350 / 350
Total)
[place] 350 / 350 350 / 350
Urine, [place] 2250 / 2250 615 / 915 300 / 300
Lab Results
03/24/24 07:29
03/24/24 07:29
Physical Exam
-
General: No Acute Distress
Abdomen: Soft, Non Distended, Non Tender and Other (The ostomy is viable and there is a small amount of blood in the bag there is slightly dark and not bright red.)
Extremities: No Calf Tenderness
Wound: Dressing in Place
--- NOTE | 2024-03-24 12:03 | W.PN.HOSP.TC ---
Addendum entered and electronically signed by Jory Araujo MD 03/24/24 12:12:
acute blood loss anemia from surgery and IVF dilution--no need for transfusion
sepsis due to stercoral colitis (likely POA)
Original Note:
Today's Communication/Plan
-
cont supportive care
Assessment / Plan
Assessment / Plan
pt is a 49 year old female
Stercoral colitis with contained perforation and rectal bleeding (history of hemorrhoids)--apprec colorectal surgery input--s/p OR 03/22--N.p.o./IVF/pain control/zofran/zosyn--NGT clamped--hold all oral meds, change to IV if able
Sinus tachycardia secondary to pain/infection/POTS disease/dysautonomia--Recently diagnosed POTS disease/dysautonomia--renew IVF--Continue metoprolol IV
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
Raynaud's disease
Trigeminal neuralgia
GERD/hiatal hernia--Continue Protonix,
Esophageal narrowing
Degenerative disc disease--Continue baclofen, ibuprofen/Lyrica--Continue amitriptyline
IBS
Asthma--Continue montelukast
Anxiety--Continue Xanax
Hypothyroidism--Continue levothyroxine
History of migraines--Continue as needed Nurtec
code status -Full code
DVT prophylaxis�SCDs
Anticipated Discharge: > 48 hours
Subjective/Interval History
-
Date of Service: March 24, 2024
NGT clamped--ativan doing OK
Objective Data
-
Labs:
Laboratory Results
03/24/24
07:29
WBC 12.1 H
Hgb 8.8 L
Hct 27.0 L
Plt Count 293
Sodium 138
Potassium 3.3 L
Chloride 107
Carbon Dioxide 22
BUN 14
Creatinine 0.7
Glucose 65 L
Calcium 8.0 L
Total Bilirubin 0.6
AST 25
ALT 13
Alkaline Phosphatase 72
Vital Signs:
max temp for 24 hours
03/24/24
07:25
Temp 98.2 F
Vital Signs
Temp Pulse Resp BP Pulse Ox
98.2 F 97 16 119/78 98
03/24/24 11:25 03/24/24 11:25 03/24/24 11:25 03/24/24 11:25 03/24/24 11:25
I&O
03/23/24 03/24/24 03/25/24
06:59 06:59 06:59
Intake Total 1890 / 1890 1909
Output Total 2600 / 2600 965 / 1265 300 / 300
Balance -710 / -710 945 / 645 -300 / -300
Review of Systems
-
All other systems: Reviewed and negative
Physical Exam
-
General: Well Developed, Well Nourished and No Apparent Distress
HEENT: Normocephalic, Atraumatic and Other (clamped NGT)
Respiratory: Clear to Auscultation; Negative Wheezes or Rhonchi
Cardiac: Regular Rhythm and S1/S2; Negative Murmur
GI: Soft, Nontender, Nondistended, Normal Bowel Sounds and Ostomy
Musculoskeletal: No Clubbing, No Cyanosis and No Edema
Neuro: Awake
Psych: Anxious
[2024-03-24] MEDS: NON-FORMULARY ITEM 0.025 PATCH TOPICAL (13:01)
[2024-03-24] MEDS: MORPHINE SULFATE 2 MG IV (13:11)
[2024-03-24 15:15] VITALS: BP 119/77
[2024-03-24] MEDS: MORPHINE SULFATE 1 MG IV (15:35)
[2024-03-24 19:20] VITALS: BP 127/85
[2024-03-24] MEDS: NON-FORMULARY ITEM PO (23:09)
[2024-03-24 23:16] VITALS: BP 119/71
[2024-03-24] MEDS: ATIVAN 0.25 MG IV (23:28)
[2024-03-25] MEDS: NSS 1000 IV (02:00)
[2024-03-25 03:04] VITALS: BP 137/78
[2024-03-25] MEDS: ZOSYN 50 IV ×4 (04:37→21:21)
[2024-03-25] MEDS: MORPHINE SULFATE 4 MG IV ×4 (05:24→21:20)
[2024-03-25 07:20] VITALS: BP 135/88
[2024-03-25 08:21] LABS: Hematocrit 27.2 % (37.0-47.0); Hemoglobin 8.9 g/dL (12.0-16.0); Mean Corp Hgb Conc. 32.7 g/dL (33.0-37.0); Mean Corpuscular Hgb 28.5 pg (27.0-31.0); Mean Corpuscular Volume 87.2 fL (81.0-99.0); Mean Platelet Volume 10.1 fL (7.4-10.4); Platelet Count 361 10^3/uL (130-400); Red Blood Cell Count 3.12 10^6/uL (4.20-5.40); Red Cell Dist. Width 13.7 % (11.5-14.5); White Blood Cell Count 9.3 10^3/uL (4.8-10.8)
[2024-03-25 08:26] LABS: Blood Urea Nitrogen 9 mg/dl (7-17); Calcium 8.1 mg/dl (8.4-10.2); Carbon Dioxide 21 mmol/L (22-30); Chloride 107 mmol/L (98-107); Estimated Creatinine Clearance 115 ml/min; Glucose 60 mg/dl (70-99); Potassium 3.4 mmol/L (3.5-5.1); Sodium 138 mmol/L (135-145); eGFR > 60.00
[2024-03-25] MEDS: NSS (PRESERVATIVE FREE) 10 ML IV (09:22)
[2024-03-25] MEDS: PROTONIX IV 40 MG IV (09:23)
--- NOTE | 2024-03-25 10:31 | W.PN.UPDATE ---
Update Note
Progress Note Update
Psychiatry follow up for anxiety management. Patient states that she used low dose PRN Ativan last night and it helped her sleep. She is feeling better overall today. She is eager to take a shower. She has not tried Remeron yet. We reviewed the
potential risks/benefits of the medication and she states she will consider trying it while in the hospital. We discussed the difficulty of this adjustment and patient agrees she would benefit greatly from outpatient psychiatric medication
management and individual therapy once medically stable.
MSE- good eye contact. fluent speech. Slightly less anxious mood and affect. logical and goal directed. denies SI/HI/AVH. good insight/judgement. fully oriented
Plan- patient will consider trying Remeron 7.5mg HS. Continue Ativan PRN anxiety. 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 Psychiatry will follow up.
[2024-03-25] MEDS: ZOFRAN 4 MG IV ×2 (10:34→21:20)
[2024-03-25 11:00] VITALS: BP 135/86
--- NOTE | 2024-03-25 11:23 | W.PN.HOSP.TC ---
Today's Communication/Plan
-
encouraged ambulation
stop IVF
Assessment / Plan
Assessment / Plan
pt is a 49 year old female
Stercoral colitis with contained perforation and rectal bleeding (history of hemorrhoids)--apprec colorectal surgery input--s/p OR 03/22 with ostomy creation--N.p.o./IVF/pain control/zofran/zosyn--NGT out--restart all oral meds (likely tomorrow) if
taking POs
Sinus tachycardia secondary to pain/infection/POTS disease/dysautonomia--Recently diagnosed POTS disease/dysautonomia--renew IVF--Continue metoprolol IV
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
Raynaud's disease
Trigeminal neuralgia
GERD/hiatal hernia--Continue Protonix,
Esophageal narrowing
Degenerative disc disease--Continue baclofen, ibuprofen/Lyrica--Continue amitriptyline
IBS
Asthma--Continue montelukast
Anxiety--Continue Xanax
Hypothyroidism--Continue levothyroxine
History of migraines--Continue as needed Nurtec
code status -Full code
DVT prophylaxis�SCDs
Anticipated Discharge: > 48 hours
Subjective/Interval History
-
Date of Service: March 25, 2024
pt NGT out--on clears--encouraged ambulation
Objective Data
-
Labs:
Laboratory Results
03/25/24
06:46
WBC 9.3
Hgb 8.9 L
Hct 27.2 L
Plt Count 361 D
Sodium 138
Potassium 3.4 L
Chloride 107
Carbon Dioxide 21 L
BUN 9
Creatinine 0.6
Glucose 60 L
Calcium 8.1 L
Vital Signs:
max temp for 24 hours
03/24/24
19:20
Temp 98.9 F
Vital Signs
Temp Pulse Resp BP Pulse Ox
98.4 F 99 16 135/88 95
03/25/24 07:20 03/25/24 07:20 03/25/24 07:20 03/25/24 07:20 03/25/24 07:20
I&O
03/24/24 03/25/24 03/26/24
06:59 06:59 06:59
Intake Total 0 / 0 820 / 820
Output Total 965 / 1265 900 / 900
Balance 945 / 645 -80 / -80
Review of Systems
-
All other systems: Reviewed and negative
Physical Exam
-
General: Well Developed, Well Nourished and No Apparent Distress
HEENT: Normocephalic and Atraumatic
Respiratory: Clear to Auscultation; Negative Wheezes or Rhonchi
Cardiac: Regular Rhythm and S1/S2; Negative Murmur
GI: Soft, Normal Bowel Sounds, Tender, Distended and Ostomy
Musculoskeletal: No Clubbing, No Cyanosis and No Edema
Psych: Anxious
[2024-03-25] MEDS: ATIVAN 0.25 MG IV (11:56)
--- NOTE | 2024-03-25 12:34 | W.PN.CRS1 ---
Today's Communication / Plan
-
Trial of clears
Assessment/Plan
-
49 yo female with stercoral colitis now POD#3 Sigmoid colectomy (partial) and end colostomy (Daniela's procedure)
AFVSS
Labs stable
Leukocytosis continues to improve
NGT out on 03/24
-Lovenox/toradol on hold given bloody stools
-OOB as richie
-Start CLD
-Wound RN for stoma teaching.
-Continue IV Zosyn. Peritoneal cultures with E. coli and Enterococcus. E. coli is sensitive to Zosyn.
-OR pathology pending.
-c/w zofran/levsin (takes at home also)
-Anxiolytic prn
-Miralax 17gm daily
-Pain control: acetaminophen as needed, morphine as needed.
Subjective Data
Procedure
03/22/2024- Sigmoid colectomy (partial) and end colostomy (Daniela's procedure)
Subjective Data
Date of Service: March 25, 2024
Patient seen and examined at bedside with Dr. Vilchis. Some nausea similar to baseline. No vomiting. Passing flatus/stool via stoma. slept well last night.
Objective Data
-
Vital Signs
Temp Pulse Resp BP Pulse Ox
97.7 F 87 18 135/86 100
03/25/24 11:00 03/25/24 11:00 03/25/24 11:00 03/25/24 11:00 03/25/24 11:00
Intake & Output
03/24/24 03/25/24 03/26/24
06:59 06:59 06:59
Intake Total 1909 / 1909 820 / 820
Output Total 965 / 1265 900 / 900
Balance 945 / 645 -80 / -80
Intake:
Oral fluids 960 / 960 120 / 120
IV fluids (Total) 660 / 660 600 / 600
IV piggybacks 200 / 200 100 / 100
Amount instilled into GI Tube (
Total)
[place] 90 /
Output:
Liquid stool amount 50 / 50
Colostomy 50 / 50
Gastrointestinal tube output ( 350 / 350
Total)
[place] 350 / 350
Urine, [place] 615 / 915 300 / 300
Urine, Voided 550 / 550
Other:
Number of approximated MODERATE 2
amounts of urine
Lab Results
03/25/24 06:46
03/25/24 06:46
Physical Exam
-
General: No Acute Distress
Abdomen: Soft, Non Distended, Non Tender and Other (The ostomy is viable, pink. +stool/flatus in appliance)
Extremities: No Calf Tenderness
Skin: Warm and Dry
Wound: Dressing in Place
[2024-03-25 15:05] VITALS: BP 136/82
[2024-03-25 19:25] VITALS: BP 124/79
[2024-03-25] MEDS: MIRALAX 17 GRAMS PO (21:17)
[2024-03-25] MEDS: NON-FORMULARY ITEM PO (21:22)
[2024-03-25 23:26] VITALS: BP 115/72
[2024-03-26 03:12] VITALS: BP 149/93
[2024-03-26] MEDS: ZOSYN 50 IV ×4 (05:28→21:12)
[2024-03-26] MEDS: SYNTHROID 50 MCG PO (05:29)
[2024-03-26] MEDS: ZOFRAN 4 MG IV ×3 (05:39→21:12)
[2024-03-26] MEDS: MORPHINE SULFATE 4 MG IV ×3 (05:39→15:42)
[2024-03-26 08:00] VITALS: BP 140/90
[2024-03-26] MEDS: PROTONIX IV 40 MG IV (08:26)
[2024-03-26] MEDS: NSS (PRESERVATIVE FREE) 10 ML IV (08:26)
[2024-03-26] MEDS: MORPHINE SULFATE 1 MG IV (09:03)
[2024-03-26 10:59] VITALS: BP 141/86
[2024-03-26 11:12] LABS: Hematocrit 31.4 % (37.0-47.0); Hemoglobin 10.4 g/dL (12.0-16.0); Mean Corp Hgb Conc. 33.1 g/dL (33.0-37.0); Mean Corpuscular Hgb 29.3 pg (27.0-31.0); Mean Corpuscular Volume 88.5 fL (81.0-99.0); Mean Platelet Volume 9.7 fL (7.4-10.4); Platelet Count 387 10^3/uL (130-400); Red Blood Cell Count 3.55 10^6/uL (4.20-5.40); Red Cell Dist. Width 13.5 % (11.5-14.5); White Blood Cell Count 10.6 10^3/uL (4.8-10.8)
--- NOTE | 2024-03-26 11:13 | W.PN.CRS1 ---
Today's Communication / Plan
-
advance diet to fulls with supplement
d/c ivfs
restart lovenox
Assessment/Plan
-
49 yo female with stercoral colitis now POD#4 Sigmoid colectomy (partial) and end colostomy (Daniela's procedure)
AFVSS
Labs stable, hgb 10.4 from 8.9.
Leukocytosis continues to improve
NGT out on 03/24
-Restart Lovenox given hgb improving.
-OOB as tolerated
-Advance diet to fulls with supplement
-D/c IVFs
-Wound RN for stoma teaching, okay to change midline bandage when changing colostomy
-Continue IV Zosyn. Peritoneal cultures with E. coli and Enterococcus. E. coli is sensitive to Zosyn.
-OR pathology pending.
-c/w zofran/levsin (takes at home also)
-Anxiolytic prn
-Miralax 17gm daily
-Pain control: acetaminophen as needed, morphine as needed.
Subjective Data
Procedure
03/22/2024- Sigmoid colectomy (partial) and end colostomy (Daniela's procedure)
Subjective Data
Date of Service: March 26, 2024
Patient states she had a good rest last night. She has bowel movements. They are very mild with some blood in her bag. She is having flatus. Overall she is much improved. She is tolerating clears.
Objective Data
-
Vital Signs
Temp Pulse Resp BP Pulse Ox
98.2 F 92 16 141/86 96
03/26/24 10:59 03/26/24 10:59 03/26/24 10:59 03/26/24 10:59 03/26/24 10:59
Intake & Output
03/25/24 03/26/24 03/27/24
06:59 06:59 06:59
Intake Total 820 / 820 264 / 2640
Output Total 900 / 900
Balance -80 / -80 2624 / 2624
Intake:
Oral fluids 120 / 120 2640 / 2640
IV fluids (Total) 600 / 600
IV piggybacks 100 / 100
Output:
Liquid stool amount 50 / 50
Colostomy 50 / 50
Urine, [place] 300 / 300
Urine, Voided 550 / 550
Other:
Number of approximated MODERATE 2 1
amounts of urine
Number of approximated LARGE 4
amounts of urine
Lab Results
03/26/24 10:28
Physical Exam
-
General: No Acute Distress and AOx3
Abdomen: Soft, Non Distended, Non Tender and Other (colostomy warm and pink with stool in bag with very mild amount of blood)
Wound: Dressing in Place
--- NOTE | 2024-03-26 11:22 | CM ---
Patient seen at bedside with physician. Patient also present. Patient to be followed with [facility] at discharge. CM will continue to follow for discharge planning needs.
Plan; home with [facility] to follow for wound care/ostomy
--- NOTE | 2024-03-26 11:23 | W.PN.HOSP.TC ---
Today's Communication/Plan
-
advancing diet
likely d/c once cleared by surgery/CRS
Assessment / Plan
Assessment / Plan
pt is a 49 year old female
Stercoral colitis with contained perforation and rectal bleeding (history of hemorrhoids)--apprec colorectal surgery input--s/p OR 03/22 with ostomy creation--N.p.o./IVF/pain control/zofran/zosyn--NGT out--restart all oral meds --advancing to fulls
Sinus tachycardia secondary to pain/infection/POTS disease/dysautonomia--Recently diagnosed POTS disease/dysautonomia--renew IVF--Continue metoprolol IV
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
Raynaud's disease
Trigeminal neuralgia
GERD/hiatal hernia--Continue Protonix,
Esophageal narrowing
Degenerative disc disease--Continue baclofen, ibuprofen/Lyrica--Continue amitriptyline
IBS
Asthma--Continue montelukast
Anxiety--Continue Xanax
Hypothyroidism--Continue levothyroxine
History of migraines--Continue as needed Nurtec
code status -Full code
DVT prophylaxis�SCDs
Anticipated Discharge: 24 - 48 hours
Subjective/Interval History
-
Date of Service: March 26, 2024
pt advancing to fulls today
Objective Data
-
Labs:
Laboratory Results
03/26/24
10:28
WBC 10.6
Hgb 10.4 L
Hct 31.4 L
Plt Count 387
Sodium Pending
Potassium Pending
Chloride Pending
Carbon Dioxide Pending
BUN Pending
Creatinine Pending
Glucose Pending
Calcium Pending
Vital Signs:
max temp for 24 hours
03/25/24
15:05
Temp 98.4 F
Vital Signs
Temp Pulse Resp BP Pulse Ox
98.2 F 92 16 141/86 96
03/26/24 10:59 03/26/24 10:59 03/26/24 10:59 03/26/24 10:59 03/26/24 10:59
I&O
03/25/24 03/26/24 03/27/24
06:59 06:59 06:59
Intake Total 820 / 820 2640 / 2640
Output Total 900 / 900
Balance -80 / -80 2625 / 2625
Review of Systems
-
All other systems: Reviewed and negative
Physical Exam
-
General: Well Developed, Well Nourished and No Apparent Distress
HEENT: Normocephalic and Atraumatic
Respiratory: Clear to Auscultation; Negative Wheezes or Rhonchi
Cardiac: Regular Rhythm and S1/S2; Negative Murmur
GI: Soft, Nontender, Nondistended, Normal Bowel Sounds and Ostomy
Musculoskeletal: No Clubbing, No Cyanosis and No Edema
Neuro: Awake and Alert
Psych: Anxious
[2024-03-26 11:38] LABS: Blood Urea Nitrogen 3 mg/dl (7-17); Carbon Dioxide 29 mmol/L (22-30); Chloride 103 mmol/L (98-107); Estimated Creatinine Clearance 115 ml/min; Glucose 117 mg/dl (70-99); Magnesium 2.1 mg/dl (1.6-2.3); Potassium 4.3 mmol/L (3.5-5.1); Sodium 138 mmol/L (135-145); eGFR > 60.00
[2024-03-26] MEDS: ATIVAN 0.25 MG IV ×2 (11:39→23:31)
[2024-03-26] MEDS: NSS (PRESERVATIVE FREE) 0.125 ML IV ×2 (11:39→23:30)
--- NOTE | 2024-03-26 12:32 | WOUNDNOTE ---
[facility] RN NOTE: Patient visited for ostomy change/teaching and removal of midline surgical dressing. Patient was medicated for pain and anxiety prior to ostomy change by RN, Anayeli. Midline incision clean with frank and abdulaziz intact. Ostomy is
irregular/oval and slightly budded with dark brown liquid stool. Appliance changed with Rasheed wafer # [id number] and [place] pouch # [id number] and Kale seal. If pouch leaks, staff may try soft convex #[id number]. Stoma powder and paste also at bedside.
Reviewed ostomy care including emptying pouch and cutting barrier with patient and spouse. Spouse was very attentive and supportive and asked appropriate questions. Patient provided support from family and nursing staff, as she verbalized anxiety
with midline incision and pouch change. Overall, patient tolerated very well. Will continue care during in-patient stay.
[2024-03-26] MEDS: ZOFRAN 4 MG PO (14:59)
--- NOTE | 2024-03-26 15:22 | W.PN.UPDATE ---
Update Note
Progress Note Update
Pt seen, chart reviewed. Pt alert, calm, conversant. She states Ativan is helping with anxiety; pt finds wound care anxiety-provoking. Pt states she is a different person since dental complications and trigeminal neuropathy 2 years ago. That is
when she started prn Xanax, amitriptyline 20 mg , Lyrica. Pt reports she usually takes less Xanax than prescribed, often taking 1/2 of 0.5 mg tab. Pt's affect is pleasant, mood is stable, with some excess worry/fearful outlook. Pt agrees with the
recommendation for outpatient therapy. Pt states she was on Prozac 10 mg daily for years previously.
Imp: Adjustment d/o, with anxiety/depression
Rec: continue with prn Ativan; Outpatient therapy and med mgt when medically stable/upon return home
will continue order for Remeron 7.5 mg HS prn (for anxiety)- pt has not tried yet
Will follow
[2024-03-26 15:39] VITALS: BP 133/85
[2024-03-26] MEDS: LOVENOX 40 MG SC (18:27)
[2024-03-26 19:27] VITALS: BP 131/85
[2024-03-26] MEDS: MIRALAX 17 GRAMS PO (21:12)
[2024-03-26] MEDS: MORPHINE SULFATE 2 MG IV (21:36)
[2024-03-26] MEDS: MYLICON 80 MG PO (22:07)
[2024-03-26] MEDS: NON-FORMULARY ITEM 1 MG PO (22:07)
[2024-03-26 23:00] VITALS: BP 124/84
[2024-03-27 03:18] VITALS: BP 133/90
[2024-03-27] MEDS: ZOSYN 50 IV ×4 (05:20→22:00)
[2024-03-27] MEDS: SYNTHROID 50 MCG PO (05:20)
[2024-03-27 07:19] VITALS: BP 153/93
[2024-03-27 08:40] LABS: Blood Urea Nitrogen 3 mg/dl (7-17); Calcium 8.5 mg/dl (8.4-10.2); Carbon Dioxide 28 mmol/L (22-30); Chloride 100 mmol/L (98-107); Estimated Creatinine Clearance 115 ml/min; Glucose 89 mg/dl (70-99); Potassium 3.3 mmol/L (3.5-5.1); Sodium 134 mmol/L (135-145); eGFR > 60.00
[2024-03-27] MEDS: PROTONIX IV 40 MG IV (08:49)
[2024-03-27] MEDS: NSS (PRESERVATIVE FREE) 10 ML IV (08:50)
[2024-03-27 09:04] LABS: Hematocrit 27.9 % (37.0-47.0); Hemoglobin 9.3 g/dL (12.0-16.0); Mean Corp Hgb Conc. 33.3 g/dL (33.0-37.0); Mean Corpuscular Hgb 28.4 pg (27.0-31.0); Mean Corpuscular Volume 85.1 fL (81.0-99.0); Mean Platelet Volume 10.9 fL (7.4-10.4); Platelet Count 263 10^3/uL (130-400); Red Blood Cell Count 3.28 10^6/uL (4.20-5.40); Red Cell Dist. Width 13.5 % (11.5-14.5)
--- NOTE | 2024-03-27 10:15 | W.PN.CRS1 ---
Today's Communication / Plan
-
Low residue diet
Change morphine to oxycodone
Assessment/Plan
-
49 yo female with stercoral colitis now POD#4 Sigmoid colectomy (partial) and end colostomy (Daniela's procedure)
AFVSS
Labs stable, hgb 9.3 from 10.4
WBC now normalized
NGT out on 03/24
-Lovenox for DVT prophylaxis. Teds and SCDs in place.
-OOB as tolerated
-Advance to low residue diet.
-Encourage patient to drink water.
-Wound RN for stoma teaching, okay to change midline bandage when changing colostomy
-Continue IV Zosyn. Peritoneal cultures with E. coli and Enterococcus. E. coli is sensitive to Zosyn.
-OR pathology pending.
-c/w zofran/levsin (takes at home also)
-Anxiolytic prn
-Miralax 17gm daily
-Pain control: acetaminophen as needed, change morphine to oxycodone p.o. as needed. Morphine IV for breakthrough pain.
Subjective Data
Procedure
03/22/2024- Sigmoid colectomy (partial) and end colostomy (Daniela's procedure)
Subjective Data
Date of Service: March 27, 2024
Patient states she only sees mild blood-tinged stool in her colostomy bag. She is having flatus. She is urinating without difficulty. Overall she feels 'so-so' but feels better than she did days ago. She is still having some nausea but Zofran
helps. She denies any vomiting. She does not have any pain but is 'sore'. She has been walking the halls and sitting in a chair.
Objective Data
-
Vital Signs
Temp Pulse Resp BP Pulse Ox
98.6 F 93 16 153/93 99
03/27/24 07:19 03/27/24 07:19 03/27/24 07:19 03/27/24 07:19 03/27/24 07:19
Intake & Output
03/26/24 03/27/24 03/28/24
06:59 06:59 06:59
Intake Total 2640 / 2640 2200 / 2200
Output Total
Balance 2625 / 2625 2189 / 2189
Intake:
Oral fluids 2640 / 2640 220 / 2200
Output:
Liquid stool amount
Colostomy
Urine, Voided
Other:
Number of approximated MODERATE 1 2
amounts of urine
Number of approximated LARGE 4
amounts of urine
Lab Results
03/27/24 06:30
03/27/24 06:30
Physical Exam
-
General: No Acute Distress and AOx3
Abdomen: Soft, Non Distended, Non Tender and Other (Colostomy warm and light pink with stool in bag. Mild blood-tinged. Improving.)
Skin: Warm and Dry
[2024-03-27] MEDS: ZOFRAN 4 MG IV ×3 (10:22→23:12)
[2024-03-27 11:02] VITALS: BP 127/80
--- NOTE | 2024-03-27 11:32 | CM ---
Reviewed the chart notes and spoke with the patient and spouse at the bedside. VN will follow the patient at discharge. Patient's diet upgraded to low residual. CM continues to be available to patient/family and is monitoring medical plan for
needs at discharge.
Plan: Discharge to home on VN services when medically stable.
[2024-03-27] MEDS: ROXICODONE 5 MG PO ×2 (11:43→23:16)
[2024-03-27] MEDS: MYLICON 80 MG PO ×2 (12:47→20:48)
[2024-03-27] MEDS: NON-FORMULARY ITEM TOPICAL (12:48)
--- NOTE | 2024-03-27 14:08 | PN.CDI ---
CDI
- -
CDI:
Physician Documentation Request
Admit Date: 03/21/24 19:04
Dear Doctor Jane,
Please review the following and provide your response in the progress notes.
Clinical Indicators:
Laboratory Tests
03/21/24 03/22/24 03/22/24
11:55 01:10 07:05
Potassium 4.7 3.6 3.6
Magnesium
03/23/24 03/24/24 03/25/24
06:25 07:29 06:46
Potassium 3.5 3.3 L 3.4 L
Magnesium 2.5 H 2.4 H
03/26/24 03/27/24
10:28 06:30
Potassium 4.3 D 3.3 L
Magnesium 2.1
Based on the above and your clinical assessment, please clarify in the progress notes, the appropriate diagnosis, if significant, that supports the above abnormalities and additional evaluation, monitoring and/or treatment rendered:
Hypokalemia and Hypermagnesemia
Hypokalemia only
Hypermagnesemia only
Abnormal lab values, clinically insignificant
Other(please specify)
Use of terms such as suspected, likely, concern for, or probable (associated with a specific diagnosis that is being evaluated, monitored, or treated as if it exists) are acceptable and can be coded in the inpatient setting, when documented at the
time of discharge.
Thank you,
Jory Diane RN BSN CCDS
CDI Specialist
please contact via tiger text
Please use your independent medical judgment in providing your response.
[2024-03-27] MEDS: DIFLUCAN 150 MG PO (14:34)
[2024-03-27 15:19] VITALS: BP 131/83
[2024-03-27] MEDS: ATIVAN 0.5 MG PO (16:26)
--- NOTE | 2024-03-27 17:35 | W.PN.HOSP.TC ---
Today's Communication/Plan
-
Low residue diet.
Antibiotics
ID consult
Wean off IV Lopressor
Adjust analgesic regimen
Increase activity.
Assessment / Plan
Assessment / Plan
pt is a 49 year old female
Stercoral colitis with contained perforation and rectal bleeding (history of hemorrhoids)--apprec colorectal surgery input--s/p OR 03/22 with ostomy creation--N.p.o./IVF/pain control/zofran/zosyn--NGT out--restart all oral meds --low residue diet.
Wound culture multi bacterial including E. coli, Enterococcus species. Will obtain ID consultation for antibiotic course inpatient with immunosuppression.
Complains of vaginal discharge. Will provide single dose of Diflucan for presumed vaginal candidiasis
Sinus tachycardia secondary to pain/infection/POTS disease/dysautonomia--Recently diagnosed POTS disease/dysautonomia--renew IVF--wean off IV Lopressor.
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
Raynaud's disease
Trigeminal neuralgia
GERD/hiatal hernia--Continue Protonix,
Esophageal narrowing
Degenerative disc disease--Continue baclofen, ibuprofen/Lyrica--Continue amitriptyline
IBS
Asthma--Continue montelukast
Anxiety--Continue Xanax
Hypothyroidism--Continue levothyroxine
History of migraines--Continue as needed Nurtec
code status -Full code
DVT prophylaxis�SCDs
Anticipated Discharge: 24 - 48 hours
Subjective/Interval History
-
Date of Service: March 27, 2024
Objective Data
-
Labs:
Laboratory Results
03/27/24
06:30
WBC 9.0
Hgb 9.3 L
Hct 27.9 L
Plt Count 263 D
Sodium 134 L
Potassium 3.3 L
Chloride 100
Carbon Dioxide 28
BUN 3 L
Creatinine 0.5 L
Glucose 89
Calcium 8.5
Vital Signs:
Vital Signs
Temp Pulse Resp BP Pulse Ox
98.4 F 103 16 131/83 100
03/27/24 15:19 03/27/24 15:19 03/27/24 15:19 03/27/24 15:19 03/27/24 15:19
I&O
03/26/24 03/27/24 03/28/24
06:59 06:59 06:59
Intake Total 2640 / 2640 2200 / 2200
Output Total
Balance 2625 / 2625 2189 / 2189
Physical Exam
-
General: Well Developed, Well Nourished and No Apparent Distress
HEENT: Normocephalic and Atraumatic
Respiratory: Clear to Auscultation; Negative Wheezes or Rhonchi
Cardiac: Regular Rhythm and S1/S2; Negative Murmur
GI: Soft, Nontender, Nondistended, Normal Bowel Sounds and Ostomy
Musculoskeletal: No Clubbing, No Cyanosis and No Edema
Neuro: Awake and Alert
Psych: Anxious
[2024-03-27] MEDS: LOVENOX 40 MG SC (17:51)
[2024-03-27 19:23] VITALS: BP 124/77
[2024-03-27] MEDS: MIRALAX 17 GRAMS PO (22:00)
[2024-03-27] MEDS: NON-FORMULARY ITEM 100 MG PO (22:01)
[2024-03-27 23:21] VITALS: BP 134/89
--- NOTE | 2024-03-28 03:00 | DOWNTIME ---
There was a [employer] Client Lead Sql Developer Downtime on 03/28/2024 from 0100 to 03/28/2024 at 0252. Downtime documentation of patient's care, including medication administrations, has been reconciled in the electronic record per guidelines. Refer to the
patient's paper chart under the miscellaneous tab to see printed paper medication records and downtime forms.
[2024-03-28] MEDS: ZOSYN 50 IV ×4 (04:12→22:20)
[2024-03-28] MEDS: SYNTHROID 50 MCG PO (05:24)
[2024-03-28] MEDS: ROXICODONE 5 MG PO (06:43)
[2024-03-28 06:49] LABS: % Basophils 0.9 % (0-2); % Eosinophils 3.2 % (0-6); % Immature Granulocytes 3.7 % (0-0.5); % Monocytes 8.8 % (1.7-9.3); % Neutrophils 61.4 % (42.2-75.2); Absolute Basophils 0.1 10^3/uL (0-0.2); Absolute Eosinophils 0.3 10^3/uL (0-0.7); Absolute Immature Granulocytes 0.3 10^3/uL (0-0.05); Absolute Lymphocytes 1.8 10^3/uL (1.2-3.4); Absolute Monocytes 0.7 10^3/uL (0.1-0.6); Hematocrit 26.4 % (37.0-47.0); Hemoglobin 9.1 g/dL (12.0-16.0); Mean Corp Hgb Conc. 34.5 g/dL (33.0-37.0); Mean Corpuscular Hgb 28.5 pg (27.0-31.0); Mean Corpuscular Volume 82.8 fL (81.0-99.0); Mean Platelet Volume 10.4 fL (7.4-10.4); Nucleated Red Blood Cells % 0 %; Platelet Count 357 10^3/uL (130-400); Red Blood Cell Count 3.19 10^6/uL (4.20-5.40); Red Cell Dist. Width 13.8 % (11.5-14.5); White Blood Cell Count 8.1 10^3/uL (4.8-10.8)
[2024-03-28 07:00] VITALS: BP 121/82
[2024-03-28 07:01] LABS: Blood Urea Nitrogen 3 mg/dl (7-17); Calcium 8.7 mg/dl (8.4-10.2); Carbon Dioxide 29 mmol/L (22-30); Chloride 103 mmol/L (98-107); Estimated Creatinine Clearance 115 ml/min; Glucose 103 mg/dl (70-99); Potassium 3.2 mmol/L (3.5-5.1); Sodium 136 mmol/L (135-145); eGFR > 60.00
[2024-03-28] MEDS: PROTONIX IV 40 MG IV (08:40)
[2024-03-28] MEDS: NSS (PRESERVATIVE FREE) 10 ML IV (08:41)
--- NOTE | 2024-03-28 10:05 | CM ---
Reviewed the chart notes. VN will follow at discharge. CM continues to be available to patient/family and is monitoring medical plan for needs at discharge.
Plan: Discharge when medically stable to home with VN services.
[2024-03-28] MEDS: ZOFRAN 4 MG IV ×3 (10:35→22:42)
--- NOTE | 2024-03-28 11:16 | CON.ID ---
Consultation
-
Date/Time Consultation Requested: 03/27/2024 1346
Date/Time Consultation Performed: 03/28/2024 1105
Requesting Provider: Dr. Lara
Performing Provider: Dr. Royal
Reason for Consultation: Colitis
Chief Complaint / Past History
History of Present Illness
Wei Jones is a 49-year-old female being evaluated at the request of Dr. Foster in regards to colitis. History is obtained from chart review, along with patient interview.
The patient has a significant past medical history of lupus, and is maintained on hydroxychloroquine. She presented to [facility] on 03/21 secondary to the acute onset of severe lower abdominal discomfort with hematochezia. Workup in the ER
revealed a leukocytosis, and CT imaging revealed a localized perforation secondary to stercoral colitis. She was taken to the OR on 03/22 and underwent a partial sigmoid colectomy with end colostomy. Cultures obtained at that time revealed
polymicrobial growth, and Infectious Diseases is asked to comment upon further antimicrobial therapy.
Currently she admits to some ongoing abdominal discomfort, although she is not sure what his usual post surgery. She denies any fevers or chills.
Past History
Additional Past Medical History:
Asthma
Raynaud's syndrome
Lupus
Trigeminal neuralgia
Dysautonomia
IBS
Diverticulosis/diverticulitis
Past Surgical History: Gynecological
Allergy History:
Gadolinium-Containing Contrast Medi Allergy (Verified 03/21/24 20:27)
Rash
Iodinated Contrast Media Allergy (Verified 03/21/24 23:09)
Rash
latex Allergy (Verified 03/21/24 11:45)
Rash
pollen extracts Allergy (Verified 03/21/24 20:27)
SEASONAL-watery eyes, runny nose
Medications Reviewed: Yes
Current Antibiotics:
Zosyn 3.375 g IV every 6 hours (d#8)
Social History
Tobacco: Non-Smoker
Alcohol: None
Drug: None
Personal:
Living: With Family
Employment: Employed
Family History
Family History: Not Pertinent
Review of Systems
Vital Signs
Temp Pulse Resp BP Pulse Ox
98.2 F 87 16 121/82 100
03/28/24 07:00 03/28/24 07:00 03/28/24 07:00 03/28/24 07:00 03/28/24 08:00
Physical Exam
Physical Exam
Constitutional: No Acute Distress, Comfortable and Non-toxic
Eyes: Pupils Equal, No Conjunctival Hemorrhage and Sclera Anicteric
Cardiovascular: Regular Rate and S1/S2; Negative S3/S4
Pulmonary: Clear; Negative Wheezes, Rales or Rhonchi
Gastrointestinal: Soft, Non Tender, Non Distended, Normal Bowel Sounds and Other (Ostomy in place with good fecal output.)
Genito-Urinary: Negative Landers
Extremities: Negative Edema, Cyanosis or Erythema
Neurological: Awake and Alert
Psychological: Calm
.
Lab / Diagnostic Study Results
03/28/24 05:55
03/28/24 05:55
Abs Immat Gran (auto) 0.3 10^3/uL (0-0.05) H 03/28/24 05:55
Absolute Neuts (auto) 5.0 10^3/uL (1.4-6.5) 03/28/24 05:55
Absolute Lymphs (auto) 1.8 10^3/uL (1.2-3.4) 03/28/24 05:55
Absolute Monos (auto) 0.7 10^3/uL (0.1-0.6) H 03/28/24 05:55
Absolute Basos (auto) 0.1 10^3/uL (0-0.2) 03/28/24 05:55
Immature Gran % 3.7 % (0-0.5) H 03/28/24 05:55
Neutrophils % 61.4 % (42.2-75.2) 03/28/24 05:55
Lymphocytes % 22.0 % (20.5-51.1) 03/28/24 05:55
Monocytes % 8.8 % (1.7-9.3) 03/28/24 05:55
Eosinophils % 3.2 % (0-6) 03/28/24 05:55
Basophils % 0.9 % (0-2) 03/28/24 05:55
PT 12.7 Sec (11.4-14.6) 03/21/24 12:24
INR 0.95 03/21/24 12:24
Microbiology Results
Micro:
03/22/24 12:06 Wound Culture - Final (see below...)
Abdomen Escherichia coli
Enterococcus faecium
Enterococcus raffinosus
Gram Stain - Final
03/22/24 12:06 Anaerobic Culture - Final
Abdomen
1. Escherichia coli
M.I.C. RX
--------- ---
Amoxicillin/Potas. Clavulanate <=8/4 S
Ampicillin >16 R
Ampicillin/Sulbactam 16/8 I
Aztreonam <=4 S
Cefazolin 4 I
Cefepime <=2 S
Ceftazidime <=1 S
Ceftriaxone <=1 S
Ertapenem <=0.5 S
Ciprofloxacin <=0.25 S
Gentamicin <=2 S
Meropenem <=1 S
Piperacillin/Tazobactam <=8 S
Tetracycline >8 R
Tobramycin <=2 S
Trimethoprim/Sulfamethoxazole <=2/38 S
2. Enterococcus faecium
M.I.C. RX
--------- ---
Ampicillin <=2 S
Daptomycin 4 SDD
Gentamicin Synergy Screen <=500 S
Linezolid 2 S
Vancomycin 0.5 S
3. Enterococcus raffinosus
M.I.C. RX
--------- ---
Ampicillin >8 R
Daptomycin 1 S
Gentamicin Synergy Screen <=500 S
Linezolid 2 S
Vancomycin 0.5 S
Imaging:
03/21/2024 CT abdomen/pelvis: In the left pelvis, at the junction of the distal descending colon and the sigmoid colon, there is a rounded focal area of stool within the colonic lumen, with adjacent chronic wall thickening and stranding of the
pericolonic fat. Findings are compatible with stercoral colitis. There are adjacent foci of extraluminal air, compatible with contained perforation. No evidence for free intraperitoneal air. Large amount of stool from the inferior right colon
through the superior descending colon. Please see full dictation for additional detail. Film personally viewed.
Assessment / Plan
Stercoral colitis with perforation
- s/p partial sigmoid colectomy/Chang's procedure
- polymicrobial intraoperative cultures.
Vaginal yeast infection
Asthma
Raynaud's syndrome
Lupus
Trigeminal neuralgia
Dysautonomia
IBS
Diverticulosis/diverticulitis
Recommendations:
Cultures reviewed. E. coli and Enterococcus faecium covered by Zosyn, but Enterococcus raffinosus is resistant to ampicillin.
Continue Zosyn while remains inpatient, but at discharge can transition to Augmentin to complete a 14-day course of therapy.
Will add linezolid 600 mg p.o. twice daily for 7 days.
Continue with p.o. Diflucan x 5 days.
Care Review
Plan reviewed with: Physician (Hospitalist)
--- NOTE | 2024-03-28 11:29 | W.PN.CRS1 ---
Today's Communication / Plan
-
change pain meds
GI consult
Assessment/Plan
-
49 yo female with stercoral colitis now POD#5 Sigmoid colectomy (partial) and end colostomy (Daniela's procedure)
AFVSS
Labs stable, hgb 9.1
WBC now normalized
NGT out on 03/24
-Lovenox for DVT prophylaxis. Teds and SCDs in place.
-OOB as tolerated
-Continue low residue diet.
-Encourage patient to drink water.
-Wound RN for stoma teaching, okay to change midline bandage when changing colostomy
-Continue IV Zosyn. Peritoneal cultures with E. coli and Enterococcus. E. coli is sensitive to Zosyn.
-OR pathology pending.
-c/w zofran/levsin (takes at home also)
-Anxiolytic prn
-Miralax 17gm daily
-Pain control: acetaminophen as needed, change morphine to Dilaudid IV PRN, change oxycodone to tramadol PRN, restart Toradol IV standing
-GI consult for nausea (sees Dr. Valero as an outpatient)
Subjective Data
Procedure
03/22/2024- Sigmoid colectomy (partial) and end colostomy (Daniela's procedure)
Subjective Data
Date of Service: March 28, 2024
Patient states that she still has pain around her incisions and her stoma bag. She is having stool in her bag. It is no longer bleeding. She still complains of nausea quite frequently which is bothering her. She is tolerating IV diet but is not
eating much.
Objective Data
-
Vital Signs
Temp Pulse Resp BP Pulse Ox
98.2 F 87 16 121/82 100
03/28/24 07:00 03/28/24 07:00 03/28/24 07:00 03/28/24 07:00 03/28/24 08:00
Intake & Output
03/27/24 03/28/24 03/29/24
06:59 06:59 06:59
Intake Total 2200 / 2200 1850 / 1850
Output Total
Balance 2189 / 2189 1850 / 1850
Intake:
Oral fluids 2200 / 2200 1650 / 1650
IV piggybacks 200 / 200
Output:
Urine, Voided
Other:
Number of approximated MODERATE 2 3
amounts of urine
How many times incontinent 3
MODERATE amount urine
Lab Results
03/28/24 05:55
03/28/24 05:55
Physical Exam
-
General: No Acute Distress and AOx3
Abdomen: Soft, Non Distended, Tender (around incisions) and Other (colostomy warm and pink with stool in bag)
Skin: Warm and Dry
--- NOTE | 2024-03-28 12:07 | W.PN.UPDATE ---
Update Note
Progress Note Update
patient seen chart reviewed. discussed w nursing and with dr oliver. at bedside. this patient is known to me from last week. she does appear improved compared to tuesday afternoon but she remains anxious and at this point is complaining of
severe nausea. she is trying to eat small amounts of easy to digest foods. suggested cinnamon and /or peppermint tea /mint life savers which will try to get . patient using ativan rarely. she has not tried the remeron which i encouraged her
to consider. suggested to patient some psychiatrists whom she might consult for out pt therapy. will continue to follow offering support.
[2024-03-28] MEDS: DIFLUCAN 100 MG PO (13:00)
[2024-03-28] MEDS: TORADOL 15 MG IV ×3 (13:00→23:28)
[2024-03-28] MEDS: ROXICODONE 10 MG PO (13:22)
--- NOTE | 2024-03-28 13:44 | W.PN.HOSP.TC ---
Today's Communication/Plan
-
Continue antibiotics
Increase activity.
Assessment / Plan
Assessment / Plan
pt is a 49 year old female
Stercoral colitis with contained perforation and rectal bleeding (history of hemorrhoids)--apprec colorectal surgery input--s/p OR 03/22 with ostomy creation.
Postoperative ileus
Diet has been advanced to low residue
Remains with nausea. Agree with GI evaluation. Continue antiemetics
Appreciate ID input. Cultures reviewed continue Zosyn with addition of linezolid with transition to Augmentin upon discharge.
Candidal vulvovaginitis initiated on Diflucan for 5 days.
Hypokalemia. Replete and follow daily BMP
Sinus tachycardia secondary to pain/infection/POTS disease/dysautonomia--Recently diagnosed POTS disease/dysautonomia--renew IVF--wean off IV Lopressor.
Systemic lupus erythematosus-- hydroxychloroquine has been on hold--Weaned off of steroids last week (has not needed stress dose steroids perioperatively)--Supposed to start methotrexate/IVIG in the near future as per her induction machine setter
Raynaud's disease
Trigeminal neuralgia
GERD/hiatal hernia--Continue Protonix,
Esophageal narrowing
Degenerative disc disease--Continue baclofen, ibuprofen/Lyrica--Continue amitriptyline
IBS
Asthma--Continue montelukast
Anxiety--Continue Xanax
Hypothyroidism--Continue levothyroxine
History of migraines--Continue as needed Nurtec
code status -Full code
DVT prophylaxis�SCDs
Anticipated Discharge: 24 - 48 hours
Subjective/Interval History
-
Date of Service: March 28, 2024
Objective Data
-
Labs:
Laboratory Results
03/28/24
05:55
WBC 8.1
Hgb 9.1 L
Hct 26.4 L
Plt Count 357 D
Sodium 136
Potassium 3.2 L
Chloride 103
Carbon Dioxide 29
BUN 3 L
Creatinine 0.6
Glucose 103 H
Calcium 8.7
Vital Signs:
Vital Signs
Temp Pulse Resp BP Pulse Ox
98.2 F 87 16 121/82 100
03/28/24 07:00 03/28/24 07:00 03/28/24 07:00 03/28/24 07:00 03/28/24 08:00
I&O
03/27/24 03/28/24 03/29/24
06:59 06:59 06:59
Intake Total 2199
Output Total
Balance 2189 / 2189 1849
Physical Exam
-
General: Well Developed, Well Nourished and No Apparent Distress
HEENT: Normocephalic and Atraumatic
Respiratory: Clear to Auscultation; Negative Wheezes or Rhonchi
Cardiac: Regular Rhythm and S1/S2; Negative Murmur
GI: Soft, Nontender, Nondistended, Normal Bowel Sounds and Ostomy
Musculoskeletal: No Clubbing, No Cyanosis and No Edema
Neuro: Awake and Alert
Psych: Anxious
[2024-03-28 15:00] VITALS: BP 142/89
--- NOTE | 2024-03-28 15:18 | CON.GI ---
Addendum entered and electronically signed by Zion Comer MD 03/28/24 16:58:
I saw and examined the patient.
The BLOW MOLD OPERATOR or PA's note was reviewed and I agree with the note.
Comment: 49yo female presents with stercoral colitis with contained perforation. Went to OR for repair with partial sigmoid colectomy, end colostomy/Cruz's pouch. Post op she has had worsened nausea from her baseline. She follows with Dr Valero
for GERD, IBS, gastroparesis. Zofran has not helped her symptoms. She has used dicyclomine and has reglan at home.
REC:
She was started on dicyclomine today and wishes to see how it helps
If no response, would try reglan next
Nausea probably related to multiple medications including pain meds, post op status
Original Note:
Consultation
-
Date/Time Consultation Requested: 03/28/24 1130
Date/Time Consultation Performed: 03/28/24 1520
Requesting Provider: Odalys Antony PA-C
Performing Provider: FLAVIA Han, Zion Comer MD
Reason for Consultation: nausea
Medical History
Chief Complaint / HPI
Chief Complaint: nausea
History of Present Illness:
Pt is a 49yo with hx multiple medical problems including lupus, raynaud's, trigeminal neuralgia, dysautonomia, POTS, GERD, HH, esophageal narrowing with prior dilation , DDD ,hemorrhoids, and constipation. She is followed by Dr. Valero outpatient and
presents to with severe lower abdominal pain with constipation. Ct on admission with concern for stercoral colitis with adjacent foci of air with contained perforation and large amount of stool in right colon. She was noted with fever,
tachycardia and peritonitis and proceeded to OR 03/22 with noted large impacted stool ball sigmoid partially extruded, murky abdominal fluid and moderate proximal fecal burden with concern for perforated stercoral colitis with partial sigmoid
colectomy and end colostomy with cruz's procedure. she has been followed by surgery post -op but asked to see for nausea. In reviewing office notes initially seen with increased GERD, IBS with nausea and crampy pain. She has had multiple GI
testing as outlined below with most recent testing with manometry normal with impedance/PH testing controlled with Dexilant(but unable to get insurance approval for medication) GE scan with mild gastroparesis, VSE with prominent cricopharyngeus
muscle mild impingement of post cervical wall without obstruction, EGD with dilation 20mm in distal esophagus in December 2023, esophagram with tertiary contractions and spasm. Now asked to see for nausea. She currently remains on multiple medications
including abx per ID for polymicrobial intraop culture with Zosyn, Linezolid and Diflucan. She also remain on Ketorolac, Oxycodone for pain control, Zofran for nausea and PPI IV daily.
In reviewing with patient she has had chronic nausea prior surgery. She currently admits to some bloating but no vomiting and ostomy starting to function with some brown liquid stool. She also admits to dysphagia which is chronic with minimal
improvement with dilation. She also admits to continued abdominal pain,and some blood in ostomy.
Past Medical History
Past Medical History: Asthma, Hypothyroidism and Other (lupus, raynaud's, trigeminal neuralgia, dysautonomia, small fiber neuropathy, POTS, GERD, HH, esophageal narrowing, DDD ,hemorrhoids, constipation )
Social History
Tobacco: Non-Smoker
Alcohol: None
Drug: None
Personal:
Living: With Family
Employment: Not Employed
Family History
Family History: Other (mother with IBS)
Allergies / Home Medications
Allergy/AdvReac Type Severity Reaction Status Date / Time
Gadolinium-Containing Allergy Rash Verified 03/21/24 20:27
Contrast Medi
Iodinated Contrast Media Allergy Rash Verified 03/21/24 23:09
latex Allergy Rash Verified 03/21/24 11:45
pollen extracts Allergy SEASONAL-watery Verified 03/21/24 20:27
eyes,
runny nose
�Medication �Instructions �Recorded
hydroxychloroquine 200 mg tablet 300 mg PO DAILY lupus 03/20/18
alprazolam 0.5 mg tablet (Xanax) 0.5 mg PO BID PRN anxiety 03/07/23
cetirizine 10 mg tablet (Zyrtec) 10 mg PO DAILY Allergies 03/07/23
pantoprazole 40 mg tablet,delayed 40 mg PO DAILY Gastrointestinal 03/07/23
release (Protonix) Issue
pregabalin 75 mg capsule (Lyrica) 75 mg PO BID Pain 03/07/23
amitriptyline 10 mg tablet 20 mg PO HS Sleep/Mental health 03/21/24
baclofen 5 mg tablet 5 mg PO Q8HPRN PRN muscle spasm 03/21/24
cholecalciferol (vitamin D3) 50 50 mcg PO DAILY Supplement 03/21/24
mcg (2,000 unit) tablet (Vitamin
D3)
cyanocobalamin (vitamin B-12) 1,000 mcg PO DAILY Supplement 03/21/24
1,000 mcg tablet
estradiol 0.025 mg/24 hr 1 patch topical Q72H Hormonal Agent 03/21/24
semiweekly transdermal patch
hyoscyamine sulfate 0.125 mg 0.125 mg PO Q8HPRN PRN nausea 03/21/24
sublingual tablet
ibuprofen 200 mg tablet 600 mg PO Q6HPRN PRN mild pain 03/21/24
levothyroxine 50 mcg tablet 50 mcg PO DAILY Thyroid 03/21/24
metoprolol tartrate 25 mg tablet 25 mg PO BID Blood Pressure 03/21/24
montelukast 10 mg tablet 10 mg PO HS Allergies 03/21/24
ondansetron 4 mg disintegrating 4 mg PO DAILYPRN PRN nausea 03/21/24
tablet
peg 400-propylene glycol (PF) 0.4 1 drp BOTH EYES Q6HPRN PRN dry eyes 03/21/24
%-0.3 % eye drops in a dropperette
(Systane (PF))
polyethylene glycol 3350 17 gram 17 g PO DAILYPRN PRN constipation 03/21/24
oral powder packet (Miralax)
progesterone micronized 100 mg 100 mg PO HS Hormonal Agent 03/21/24
capsule
rimegepant 75 mg disintegrating 75 mg PO DAILYPRN PRN migraines 03/21/24
tablet (Nurtec ODT)
sucralfate 1 gram tablet 1 g PO TIDPRN PRN ulcers 03/21/24
Review of Systems
-
History Source: Patient
Constitutional: Reports Fatigue
EENT: Reports No Symptoms
Respiratory: Reports No Symptoms
Abdomen/GI: Reports Abdominal Pain, Nausea, Constipated (by hx ) and Bloody Stools (no improved )
: Reports No Symptoms
Musculoskeletal: Reports No Symptoms
Neurological: Reports Weakness
Endocrine: Reports No Symptoms
Hematologic/Lymphatic: Reports No Symptoms
Vital Signs
Temp Pulse Resp BP Pulse Ox
98.2 F 87 16 121/82 100
03/28/24 07:00 03/28/24 07:00 03/28/24 07:00 03/28/24 07:00 03/28/24 08:00
Physical Exam
Exam
General: Well Developed, Well Nourished and No Apparent Distress
HEENT: Normocephalic and Anicteric
Respiratory: Clear
Cardiac: Regular Rhythm
GI: Soft, Tender (diffuse ), Distended and Other (ostomy with brown stool)
Musculoskeletal: No Clubbing and No Cyanosis
Skin: Warm and Dry
Neuro: Awake, Alert and AO x 3
Psych: Calm
Results
WBC 8.1 10^3/uL (4.8-10.8) 03/28/24 05:55
Hgb 9.1 g/dL (12.0-16.0) L 03/28/24 05:55
Hct 26.4 % (37.0-47.0) L 03/28/24 05:55
MCV 82.8 fL (81.0-99.0) 03/28/24 05:55
Plt Count 357 10^3/uL (130-400) D 03/28/24 05:55
Absolute Neuts (auto) 5.0 10^3/uL (1.4-6.5) 03/28/24 05:55
PT 12.7 Sec (11.4-14.6) 03/21/24 12:24
INR 0.95 03/21/24 12:24
APTT 26.7 Sec (23.4-35.0) 03/21/24 12:24
Sodium 136 mmol/L (135-145) 03/28/24 05:55
Potassium 3.2 mmol/L (3.5-5.1) L 03/28/24 05:55
Chloride 103 mmol/L (98-107) 03/28/24 05:55
Carbon Dioxide 29 mmol/L (22-30) 03/28/24 05:55
BUN 3 mg/dl (7-17) L 03/28/24 05:55
Creatinine 0.6 mg/dL (0.6-1.0) 03/28/24 05:55
Calcium 8.7 mg/dl (8.4-10.2) 03/28/24 05:55
Total Bilirubin 0.6 mg/dl (0.2-1.3) 03/24/24 07:29
AST 25 U/L (14-36) 03/24/24 07:29
ALT 13 U/L (0-35) 03/24/24 07:29
Alkaline Phosphatase 72 U/L (38-126) 03/24/24 07:29
Diagnostic Image Results:
----02/13/2024 Esophageal manometry and pH impedance testing for difficulty swallowing/belching: Normal esophageal manometry with normal impedance and normal bolus clearance.
---- pH testing on Dexilant 60 mg and Pepcid and Gaviscon. Normal number of reflux events. Excellent gastric acid to control with Dexilant. There is occasional abnormal esophageal acid exposure in the upright position with no reflux or eating.
No significant findings to explain her degree of symptoms on the manometry or pH impedance testing
---12/2023 CXR normal 2 views
----01/2024 mild gastroparesis mild gastroparesis on emptying study.
----01/04/24 RF video swallow: Prominent cricopharyngeus muscle, mild impingement on the posterior wall of the cervical esophagus without obstruction from C6/C7 vertebral osteophytes. No aspiration with any consistency.
---12/20/23 EGD for heartburn, esophageal dysphagia, globus sensation and solid food regurgitation on Protonix 40 mg twice daily and Pepcid before bed. Centimeter hiatal hernia otherwise normal esophagus with normal proximal and distal biopsies.
Dilated to 20 mm in the distal esophagus, mild gastric antral erythema, normal biopsies, negative for H. pylori, normal small bowel. No findings to explain her symptoms. Proceed to esophageal manometry and pH impedance and video swallow examination
with speech therapy
---06/15/23 esophagram: mild tertiary contractions/spasm with otherwise normal peristalsis. Mild GERD. no hiatal hernia.
-----04/2021 esophageal manometry and pH impedance testing elevated LES relaxation pressures that worsened in the upright position high intrabolus pressure in the upright position, normal peristalsis; normal bolus clearance;
pH testing; No gastric acid suppression on protonix. Normal number of gerd events. Positive symptom correlation with throat clearing only
-----12/25/[address] Valero for epigastric pain, 3 cm hiatal hernia otherwise endoscopically normal esophagus. Distal and proximal biopsies show mild chronic inflammation without eosinophils. Normal stomach and small bowel. Negative for celiac
negative for H. pylori.
-----12/25/20 Colonoscopy, loose stools. Good prep after significant water lavage. External hemorrhoids, mild congestion but normal biopsies throughout otherwise normal to the terminal ileum. Repeat colonoscopy in 5-10 years.
-----01/09/20 Defecography small anterior rectocele, otherwise normal
------04/27/[address] Gao: good prep to the terminal ileum. Small cecal polyp no mention of diverticulosis. pathology report not sent
-----04/2018: diagnostic hysteroscopy, DandC and endometrial ablation.
-----02/2018: CT scan with contrast. Thickening at the splenic flexure/distal transverse and proximal descending colon. with multiple small air collections adjacent to the wall presented him to be diverticula no small bowel abnormality.
-----03/2018: CT with IV and oral contrast at [place]. No acute abnormalities, no finding of diverticulitis.
Assessment / Plan
-
Pt is a 49yo with hx multiple medical problems including lupus, raynaud's, trigeminal neuralgia, dysautonomia, POTS, GERD, HH, esophageal narrowing with prior dilation , DDD ,hemorrhoids, and constipation. She is followed by Dr. Valero outpatient and
presents to with severe lower abdominal pain with constipation. Ct on admission with concern for stercoral colitis with adjacent foci of air with contained perforation and large amount of stool in right colon. She was noted with fever,
tachycardia and peritonitis and proceeded to OR 03/22 with noted large impacted stool ball sigmoid partially extruded, murky abdominal fluid and moderate proximal fecal burden with concern for perforated stercoral colitis with partial sigmoid
colectomy and end colostomy with cruz's procedure. she has been followed by surgery post -op but asked to see for nausea. In reviewing office notes initially seen with increased GERD, IBS with nausea and crampy pain. She has had multiple GI
testing as outlined below with most recent testing with manometry normal with impedance/PH testing controlled with Dexilant(but unable to get insurance approval for medication) GE scan with mild gastroparesis, VSE with prominent cricopharyngeus
muscle mild impingement of post cervical wall without obstruction, EGD with dilation 20mm in distal esophagus in December 2023, esophagram with tertiary contractions and spasm. Now asked to see for nausea. She currently remains on multiple medications
including abx per ID for polymicrobial intraop culture with Zosyn, Linezolid and Diflucan. She also remain on Ketorolac, Oxycodone for pain control, Zofran for nausea and PPI IV daily.
-nausea
-abdominal pain
-Stercoral colitis with contained perforation and rectal bleeding
-s/p OR 03/22 with partial sigmoid colectomy and end colostomy with cruz's procedure
-Postoperative ileus
-polymicrobial wound cx
-hx mild gastroparesis
-hx IBS
-hx esophageal dysmotility
other med problems:
-lupus
-raynauds
Trigeminal neuralgia
-GERD/HH
-esophageal narrowing with prior dilalation
-DDD
-Asthma
-anxiety
-hypothyroidism
-migraines
PLAN:
etiology of nausea multifactorial with recent surgery/ileus, hx mild gastroparesis, narcotics, cont abd pain, current abx, anxiety with situation, etc
currently bowel function improving no vomiting and ostomy with brown liquid output
cont Zofran PRN can consider Compazine but pt states some concern for use with Lupus and Reglan with concern for side effects
she also has abdominal pain will add low dose Hyoscyamine PRN
long discussion of bowel recovery, slow diet advancement with gastroparesis etc-- encourage to continued to sip on supplement throughout the day, small portion, low residue diet, avoid fizzy sodas
discussed try to avoid need for IV nutrition and risk of infection to use Gi tract as functioning
discussed slow wean off narcotics
increased activity
support given for situation --
-
-
Thank you for consultation and allowing me to participate in the patient's care. Please call the irrigation equipment remover GI physician during the after hours with any questions or concerns.
[2024-03-28] MEDS: LEVSIN 0.125 MG PO ×2 (16:40→22:42)
[2024-03-28] MEDS: LOVENOX 40 MG SC (18:04)
[2024-03-28] MEDS: ZYVOX 600 MG PO (20:49)
[2024-03-28] MEDS: MIRALAX 17 GRAMS PO (22:20)
[2024-03-28] MEDS: NON-FORMULARY ITEM 100 MG PO (22:21)
[2024-03-28] MEDS: NON-FORMULARY ITEM 0.025 PATCH TOPICAL (22:42)
[2024-03-28] MEDS: ATIVAN 0.5 MG PO (23:44)
[2024-03-28 23:46] VITALS: BP 145/85
[2024-03-29] MEDS: REGLAN 5 MG PO (00:27)
--- NOTE | 2024-03-29 01:56 | W.PN.UPDATE ---
Update Note
Progress Note Update
Patient requested to see CORK GRINDER. RN reports patient anxious and continuos to complain of nausea despite of antiemetics. Advised RN to give Ativan and hyoscyamine sulfate now, Reglan PO ordered once.
Patient seen and evaluated, Patient noted to be more calm at present. reports nausea subsided at present. Abdomen tender, +BS 4 quadrant, Colostomy bag in place dark brown stool noted. Verbally comforted, Stable Vital signs.
--- NOTE | 2024-03-29 03:13 | PTCARENOTE ---
Addendum entered by Joan Woods RN 03/29/24 03:18:
Actual event occurred at 2350 on 03/28, but note written at 0318 on 03/29.
Original Note:
Pt appears anxious and expresses feeling anxious. Pt given ativan for anxiety. Pt concerned about persistent nausea not resolving with zofran. Pt demanding to see overnight ELECTRIC SWITCH REPAIRER, Atiya. ELECTRIC SWITCH REPAIRER ordered PO Reglan. ELECTRIC SWITCH REPAIRER came to see pt. Pt appears more calm
and able to fall asleep post conversation with ELECTRIC SWITCH REPAIRER. Will continue to monitor.
[2024-03-29] MEDS: ZOSYN 50 IV ×4 (04:57→22:07)
[2024-03-29] MEDS: TORADOL 15 MG IV ×3 (05:01→17:32)
[2024-03-29] MEDS: SYNTHROID 50 MCG PO (05:02)
[2024-03-29 07:30] VITALS: BP 114/73
[2024-03-29] MEDS: ZOFRAN 4 MG IV ×3 (08:34→22:20)
[2024-03-29] MEDS: PROTONIX IV 40 MG IV (08:35)
[2024-03-29] MEDS: NSS (PRESERVATIVE FREE) 10 ML IV (08:35)
[2024-03-29] MEDS: DIFLUCAN 100 MG PO (08:36)
[2024-03-29] MEDS: ZYVOX 600 MG PO ×2 (08:36→20:53)
[2024-03-29] MEDS: FLUSH (NSS) 3 FLUSH IV ×2 (08:36→22:08)
[2024-03-29] MEDS: LEVSIN 0.125 MG PO (08:50)
--- NOTE | 2024-03-29 09:13 | W.PN.GI.CBS2 ---
Today's Communication / Plan
-
Trial of reglan 5mg q8 standing dose. Watch carefully for serotonin syndrome due to interaction with linezolid and stop if any signs of adverse effects
Her GES was mildly delayed in the past
Cont POs as tolerated
Agree with xray planned by Surgery to r/o obstruction/ileus
Assessment / Plan
-
Pt is a 49yo with hx multiple medical problems including lupus, raynaud's, trigeminal neuralgia, dysautonomia, POTS, GERD, HH, esophageal narrowing with prior dilation , DDD ,hemorrhoids, and constipation. She is followed by Dr. Valero outpatient and
presents to with severe lower abdominal pain with constipation. Ct on admission with concern for stercoral colitis with adjacent foci of air with contained perforation and large amount of stool in right colon. She was noted with fever,
tachycardia and peritonitis and proceeded to OR 03/22 with noted large impacted stool ball sigmoid partially extruded, murky abdominal fluid and moderate proximal fecal burden with concern for perforated stercoral colitis with partial sigmoid
colectomy and end colostomy with cruz's procedure. she has been followed by surgery post -op but asked to see for nausea. In reviewing office notes initially seen with increased GERD, IBS with nausea and crampy pain. She has had multiple GI
testing as outlined below with most recent testing with manometry normal with impedance/PH testing controlled with Dexilant(but unable to get insurance approval for medication) GE scan with mild gastroparesis, VSE with prominent cricopharyngeus
muscle mild impingement of post cervical wall without obstruction, EGD with dilation 20mm in distal esophagus in December 2023, esophagram with tertiary contractions and spasm. Now asked to see for nausea. She currently remains on multiple medications
including abx per ID for polymicrobial intraop culture with Zosyn, Linezolid and Diflucan. She also remain on Ketorolac, Oxycodone for pain control, Zofran for nausea and PPI IV daily.
-nausea
-abdominal pain
-Stercoral colitis with contained perforation and rectal bleeding
-s/p OR 03/22 with partial sigmoid colectomy and end colostomy with cruz's procedure
-Postoperative ileus
-polymicrobial wound cx
-hx mild gastroparesis
-hx IBS
-hx esophageal dysmotility
other med problems:
-lupus
-raynauds
Trigeminal neuralgia
-GERD/HH
-esophageal narrowing with prior dilalation
-DDD
-Asthma
-anxiety
-hypothyroidism
-migraines
support given for situation --
Subjective
Subjective
Date of Service: March 29, 2024
c/o severe nausea overnight. Rec'd ativan and reglan, with some relief but nausea returned this am
Objective
Data Reviewed
Laboratory Data:
Laboratory Results
03/28/24 05:55
03/28/24 05:55
Laboratory Results
PT 12.7 Sec (11.4-14.6) 03/21/24 12:24
INR 0.95 03/21/24 12:24
APTT 26.7 Sec (23.4-35.0) 03/21/24 12:24
Magnesium 2.1 mg/dl (1.6-2.3) 03/26/24 10:28
Total Bilirubin 0.6 mg/dl (0.2-1.3) 03/24/24 07:29
AST 25 U/L (14-36) 03/24/24 07:29
ALT 13 U/L (0-35) 03/24/24 07:29
Alkaline Phosphatase 72 U/L (38-126) 03/24/24 07:29
Vital Signs and I&O:
Vital Signs
Temp Pulse Resp BP Pulse Ox
98.4 F 87 16 114/73 98
03/29/24 07:30 03/29/24 07:30 03/29/24 07:30 03/29/24 07:30 03/29/24 07:30
I&O
03/28/24 03/29/24 03/30/24
06:59 06:59 06:59
Intake Total 1849 490 / 490
Output Total 100 / 100
Balance 1849 390 / 390
Physical Exam
Physical Exam
GI: Soft, Non Distended, Tender and Other (LLQ colostomy with brown stool)
[2024-03-29] MEDS: FLUSH (NSS) 1 FLUSH IV ×2 (10:25→16:11)
[2024-03-29] MEDS: REGLAN 5 MG IV (10:57)
[2024-03-29] MEDS: ATIVAN 0.5 MG PO ×2 (11:10→22:07)
--- NOTE | 2024-03-29 11:40 | W.PN.CRS1 ---
Today's Communication / Plan
-
Abdominal x-rays
Assessment/Plan
-
49 yo female with stercoral colitis now POD#5 Sigmoid colectomy (partial) and end colostomy (Daniela's procedure)
AFVSS
WBC now normalized
NGT out on 03/24
-Lovenox for DVT prophylaxis. Teds and SCDs in place.
-OOB as tolerated
-Continue low residue diet.
-Encourage patient to drink water.
-Wound RN for stoma teaching, okay to change midline bandage when changing colostomy
-Continue IV Zosyn. Peritoneal cultures with E. coli and Enterococcus. E. coli is sensitive to Zosyn.
-OR pathology pending.
-c/w zofran/levsin (takes at home also)
-Anxiolytic prn
-Miralax 17gm daily
-Pain control: acetaminophen as needed, Dilaudid IV PRN, tramadol PRN, Toradol IV standing
-Appreciate GI
-Abdominal x-rays
Subjective Data
Procedure
03/22/2024- Sigmoid colectomy (partial) and end colostomy (Daniela's procedure)
Subjective Data
Date of Service: March 29, 2024
Patient states she had very severe nausea last night. She did not vomit. She states that after breakfast yesterday she did not eat. She is having flatus and bowel movements in her colostomy bag. There is very minimal blood.
Objective Data
-
Vital Signs
Temp Pulse Resp BP Pulse Ox
98.4 F 87 16 114/73 98
03/29/24 07:30 03/29/24 07:30 03/29/24 07:30 03/29/24 07:30 03/29/24 08:29
Intake & Output
08/21/24 08/22/24 08/23/24
06:59 06:59 06:59
Intake Total 1849 / 1849 490 / 490
Output Total 100 / 100
Balance 1849 390 / 390
Intake:
Oral fluids 1650 / 1649 240 / 240
IV piggybacks 200 / 200 250 / 250
Output:
Liquid stool amount 100 / 100
Colostomy 100 / 100
Other:
Number of approximated MODERATE 3 2
amounts of urine
Number of approximated LARGE 3
amounts of urine
How many times incontinent 3
MODERATE amount urine
Lab Results
03/28/24 05:55
03/28/24 05:55
Physical Exam
-
General: No Acute Distress and AOx3
Abdomen: Soft, Non Distended, Non Tender and Other (Warm and pink with stool in bag)
Skin: Warm and Dry
--- NOTE | 2024-03-29 12:21 | W.PN.ID1 ---
Date of Service
Date of Service: March 29, 2024
Today's Communication
Continue antibiotics.
Assessment / Plan
Stercoral colitis with perforation
- s/p partial sigmoid colectomy/Chang's procedure
- polymicrobial intraoperative cultures.
Vaginal yeast infection
Asthma
Raynaud's syndrome
Lupus
Trigeminal neuralgia
Dysautonomia
IBS
Diverticulosis/diverticulitis
Recommendations:
E. coli and Enterococcus faecium covered by Zosyn, but Enterococcus raffinosus is resistant to ampicillin.
Continue Zosyn while remains inpatient, but at discharge can transition to Augmentin to continue through 04/08/2024
Continue linezolid 600 mg p.o. twice daily.
Continue with p.o. Diflucan through 03/31
����������������������������������������������������������
Chief Complaint
-: Other (Abdominal abscess)
Subjective / Review of Systems
Review of Systems: No Fever and No Chills
Vital Signs / Physical Exam
Vital Signs
Vital Signs
Temp Pulse Resp BP Pulse Ox
98.4 F 87 16 114/73 98
03/29/24 07:30 03/29/24 07:30 03/29/24 07:30 03/29/24 07:30 03/29/24 08:29
Physical Exam
Constitutional: No Acute Distress, Comfortable and Non-toxic
Eyes: Sclera Anicteric
Cardiovascular: S1/S2; Negative S3/S4 or Murmur
Pulmonary: Clear and Non Labored
Gastrointestinal: Soft, Tender (minimal), Non Distended and Other (Ostomy in place)
Extremities: Negative Edema, Clubbing, Cyanosis or Erythema
Neurological: Awake and Alert
Psychological: Calm
Objective Data
Lab Data
Lab Results
03/28/24 05:55
03/28/24 05:55
PT 12.7 Sec (11.4-14.6) 03/21/24 12:24
INR 0.95 03/21/24 12:24
APTT 26.7 Sec (23.4-35.0) 03/21/24 12:24
Estimated Creat Clear 115 ml/min 03/28/24 05:55
Total Bilirubin 0.6 mg/dl (0.2-1.3) 03/24/24 07:29
AST 25 U/L (14-36) 03/24/24 07:29
ALT 13 U/L (0-35) 03/24/24 07:29
Alkaline Phosphatase 72 U/L (38-126) 03/24/24 07:29
Most recent labs reviewed.
CT Scan: Image Reviewed and Report Reviewed
Micro Results:
03/22/24 12:06 Wound Culture - Final
Abdomen Escherichia coli
Enterococcus faecium
Enterococcus raffinosus
Gram Stain - Final
03/22/24 12:06 Anaerobic Culture - Final
Abdomen
1. Escherichia coli
M.I.C. RX
--------- ---
Amoxicillin/Potas. Clavulanate <=8/4 S
Ampicillin >16 R
Ampicillin/Sulbactam 16/8 I
Aztreonam <=4 S
Cefazolin 4 I
Cefepime <=2 S
Ceftazidime <=1 S
Ceftriaxone <=1 S
Ertapenem <=0.5 S
Ciprofloxacin <=0.25 S
Gentamicin <=2 S
Meropenem <=1 S
Piperacillin/Tazobactam <=8 S
Tetracycline >8 R
Tobramycin <=2 S
Trimethoprim/Sulfamethoxazole <=2/38 S
2. Enterococcus faecium
M.I.C. RX
--------- ---
Ampicillin <=2 S
Daptomycin 4 SDD
Gentamicin Synergy Screen <=500 S
Linezolid 2 S
Vancomycin 0.5 S
3. Enterococcus raffinosus
M.I.C. RX
--------- ---
Ampicillin >8 R
Daptomycin 1 S
Gentamicin Synergy Screen <=500 S
Linezolid 2 S
Vancomycin 0.5 S
Imaging:
03/21/2024 CT abdomen/pelvis: In the left pelvis, at the junction of the distal descending colon and the sigmoid colon, there is a rounded focal area of stool within the colonic lumen, with adjacent chronic wall thickening and stranding of the
pericolonic fat. Findings are compatible with stercoral colitis. There are adjacent foci of extraluminal air, compatible with contained perforation. No evidence for free intraperitoneal air. Large amount of stool from the inferior right colon
through the superior descending colon. Please see full dictation for additional detail. Film personally viewed.
[2024-03-29] MEDS: REGLAN PO (12:38)
--- NOTE | 2024-03-29 14:35 | W.PN.UPDATE ---
Update Note
Progress Note Update
patient seen chart reviewed. spoke with nursing. mom at bedside. the patient felt terrible through the night w constant nausea. noted reglan started. she is better today and was able to focus on other things although it is my impression that
the shock of her surgery most importantly the issue of a colostomy is playing a role in her anxiety and nausea . i encouraged her to today to tell me about aspects of her life and she spoke of the jone work she has done ...traveling to [facility] w a
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 it is my impression that it is helpful for her to turn her thoughts to issues other than her illness. i did call "Susy"jase's office and was able to secure a therapist for her when she is dc to home. gave her the name and number. will see her in the am. she hopes for dc tomorrow
--- NOTE | 2024-03-29 14:41 | W.PN.HOSP.TC ---
Today's Communication/Plan
-
Low residue diet.
Reglan.
Hold hyoscyamine given constipation.
Continue current analgesic regimen.
Bowel regimen
Antibiotics
Assessment / Plan
Assessment / Plan
Stercoral colitis with contained perforation and rectal bleeding (history of hemorrhoids)--apprec colorectal surgery input--s/p OR 03/22 with ostomy creation.
Persistent nausea likely multifactorial due to medications including opiates, possibly delayed gastric emptying, constipation
Postoperative ileus
Follow-up abdominal x-ray on 03/29 with nonobstructive bowel pattern.
Diet has been advanced to low residue
Initiated on Reglan, transition to p.o. 10 mg 3 times daily. Monitor for drug interaction.
Given constipation, hold hyoscyamine. Continue bowel regimen.
Appreciate ID input. Cultures reviewed continue Zosyn with addition of linezolid with transition to Augmentin upon discharge.
Candidal vulvovaginitis initiated on Diflucan for 5 days.
Hypokalemia. Replete and follow daily BMP
Sinus tachycardia secondary to pain/infection/POTS disease/dysautonomia--Recently diagnosed POTS disease/dysautonomia--renew IVF--wean off IV Lopressor. Transition to oral beta-olamide at the admission dose.
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
Raynaud's disease
Trigeminal neuralgia
GERD/hiatal hernia--Continue Protonix,
Esophageal narrowing
Degenerative disc disease--Continue baclofen, ibuprofen/Lyrica--Continue amitriptyline
IBS
Asthma--Continue montelukast
Anxiety--Continue Xanax
Hypothyroidism--Continue levothyroxine
History of migraines--Continue as needed Nurtec
code status -Full code
DVT prophylaxis�SCDs
Anticipated Discharge: > 48 hours
Subjective/Interval History
-
Date of Service: March 29, 2024
Objective Data
-
Vital Signs:
Vital Signs
Temp Pulse Resp BP Pulse Ox
98.4 F 87 16 114/73 98
03/29/24 07:30 03/29/24 07:30 03/29/24 07:30 03/29/24 07:30 03/29/24 08:29
I&O
03/28/24 03/29/24 03/30/24
06:59 06:59 06:59
Intake Total 1849 490 / 490
Output Total 100 / 100
Balance 1849 390 / 390
Physical Exam
-
General: Well Developed, Well Nourished and No Apparent Distress
HEENT: Normocephalic and Atraumatic
Respiratory: Clear to Auscultation; Negative Wheezes or Rhonchi
Cardiac: Regular Rhythm and S1/S2; Negative Murmur
GI: Soft, Nontender, Nondistended, Normal Bowel Sounds and Ostomy
Musculoskeletal: No Clubbing, No Cyanosis and No Edema
Neuro: Awake and Alert
Psych: Anxious
[2024-03-29 15:18] VITALS: BP 109/65
[2024-03-29] MEDS: REGLAN 10 MG PO (16:11)
[2024-03-29] MEDS: CITROMA 300 ML PO (16:11)
[2024-03-29] MEDS: LOVENOX 40 MG SC (17:31)
[2024-03-29] MEDS: LOPRESSOR PO (20:43)
[2024-03-29] MEDS: NON-FORMULARY ITEM PO (20:44)
[2024-03-29] MEDS: ROXICODONE 10 MG PO (20:52)
[2024-03-29] MEDS: MIRALAX 17 GRAMS PO (20:53)
[2024-03-29 23:29] VITALS: BP 126/82
[2024-03-30] MEDS: FLUSH (NSS) 3 FLUSH IV (00:30)
[2024-03-30] MEDS: TORADOL 15 MG IV ×3 (00:30→12:31)
--- NOTE | 2024-03-30 00:44 | PTCARENOTE ---
medicated with prn pain/nasuea meds- pt still working on mag cit- she does have a small amt of pasty stool in colostomy for which she was happy about- bowel sounds ar hypo- belly is round- pt ambulates hallways- lots of emotional support given
[2024-03-30] MEDS: ZOSYN 50 IV ×2 (04:55→10:21)
[2024-03-30] MEDS: SYNTHROID 50 MCG PO (04:55)
[2024-03-30] MEDS: ZOFRAN 4 MG IV ×2 (05:07→12:35)
[2024-03-30 07:27] VITALS: BP 126/80
[2024-03-30 07:52] LABS: Platelet Count 486 10^3/uL (130-400)
[2024-03-30 07:54] LABS: % Eosinophils 3.7 % (0-6); % Immature Granulocytes 1.8 % (0-0.5); % Lymphocytes 28.5 % (20.5-51.1); % Monocytes 10.2 % (1.7-9.3); % Neutrophils 54.8 % (42.2-75.2); Absolute Basophils 0.1 10^3/uL (0-0.2); Absolute Eosinophils 0.3 10^3/uL (0-0.7); Absolute Immature Granulocytes 0.1 10^3/uL (0-0.05); Absolute Lymphocytes 2.1 10^3/uL (1.2-3.4); Absolute Monocytes 0.7 10^3/uL (0.1-0.6); Hematocrit 28.8 % (37.0-47.0); Hemoglobin 9.3 g/dL (12.0-16.0); Mean Corp Hgb Conc. 32.3 g/dL (33.0-37.0); Mean Corpuscular Hgb 28.6 pg (27.0-31.0); Mean Corpuscular Volume 88.6 fL (81.0-99.0); Mean Platelet Volume 9.3 fL (7.4-10.4); Nucleated Red Blood Cells % 0 %; Red Blood Cell Count 3.25 10^6/uL (4.20-5.40); Red Cell Dist. Width 14.2 % (11.5-14.5); White Blood Cell Count 7.3 10^3/uL (4.8-10.8)
[2024-03-30] MEDS: PROTONIX 40 MG PO (08:08)
[2024-03-30] MEDS: LOPRESSOR PO (08:08)
[2024-03-30] MEDS: ZYVOX 600 MG PO (08:08)
[2024-03-30] MEDS: REGLAN 10 MG PO ×2 (08:08→12:30)
[2024-03-30] MEDS: DIFLUCAN 100 MG PO (08:09)
[2024-03-30 08:10] LABS: Blood Urea Nitrogen 6 mg/dl (7-17); Calcium 8.5 mg/dl (8.4-10.2); Carbon Dioxide 28 mmol/L (22-30); Chloride 104 mmol/L (98-107); Estimated Creatinine Clearance 115 ml/min; Glucose 92 mg/dl (70-99); Potassium 3.7 mmol/L (3.5-5.1); Sodium 141 mmol/L (135-145); eGFR > 60.00
[2024-03-30] MEDS: MYLICON 80 MG PO (08:10)
--- NOTE | 2024-03-30 09:28 | W.PN.GI.CBS2 ---
Addendum entered and electronically signed by Isauro Bruce MD 03/30/24 13:56:
I saw and examined the patient.
The DISPATCH LEAD or PA's note was reviewed and I agree with the note.
Comment:
Pt with bloating, nausea, constipation. Not worse. Her ostomy works. No overt abdominal pain
abd: ostomy in place (in room with ostomy nurse), soft
impression:
nausea
constipation
steroceral colitis s/o perforation/ostomy
abd cramps
plan:
retry hyoscyamine
oob
ostomy care
miralax bid and titrate (mag doesn't work for her)
reglan low dose
can try iberogast and/or IBguard
f/u with dr. Valero.
Spoke with patient and family in room
Original Note:
Today's Communication / Plan
-
still with nausea and some crampy pain -- no vomiting and + stool reviewed with patient no concern for obstruction or ileus
abx X ray with increase stools - s/p mag citrate and miralax with some loose stools
cont PO Reglan
will restart Hyoscyamine - reviewed with hospitalist for restart
change Miralax to BID
encouraged oral diet, supplement, ambulation etc.
Assessment / Plan
-
Pt is a 49yo with hx multiple medical problems including lupus, raynaud's, trigeminal neuralgia, dysautonomia, POTS, GERD, HH, esophageal narrowing with prior dilation , DDD ,hemorrhoids, and constipation. She is followed by Dr. Valero outpatient and
presents to with severe lower abdominal pain with constipation. Ct on admission with concern for stercoral colitis with adjacent foci of air with contained perforation and large amount of stool in right colon. She was noted with fever,
tachycardia and peritonitis and proceeded to OR 03/22 with noted large impacted stool ball sigmoid partially extruded, murky abdominal fluid and moderate proximal fecal burden with concern for perforated stercoral colitis with partial sigmoid
colectomy and end colostomy with cruz's procedure. she has been followed by surgery post -op but asked to see for nausea. In reviewing office notes initially seen with increased GERD, IBS with nausea and crampy pain. She has had multiple GI
testing as outlined below with most recent testing with manometry normal with impedance/PH testing controlled with Dexilant(but unable to get insurance approval for medication) GE scan with mild gastroparesis, VSE with prominent cricopharyngeus
muscle mild impingement of post cervical wall without obstruction, EGD with dilation 20mm in distal esophagus in December 2023, esophagram with tertiary contractions and spasm. Now asked to see for nausea. She currently remains on multiple medications
including abx per ID for polymicrobial intraop culture with Zosyn, Linezolid and Diflucan. She also remain on Ketorolac, Oxycodone for pain control, Zofran for nausea and PPI IV daily.
-nausea
-abdominal pain
-Stercoral colitis with contained perforation and rectal bleeding
-s/p OR 03/22 with partial sigmoid colectomy and end colostomy with cruz's procedure
-Postoperative ileus
-polymicrobial wound cx
-hx mild gastroparesis
-hx IBS
-hx esophageal dysmotility
other med problems:
-lupus
-raynauds
Trigeminal neuralgia
-GERD/HH
-esophageal narrowing with prior dilalation
-DDD
-Asthma
-anxiety
-hypothyroidism
-migraines
PLAN:
still with nausea and some crampy pain -- no vomiting and + stool reviewed with patient no concern for obstruction or ileus
abx X ray with increase stools - s/p mag citrate and miralax with some loose stools
cont PO Reglan
will restart Hyoscyamine - reviewed with hospitalist for restart
change Miralax to BID
encouraged oral diet, supplement, ambulation etc.
Subjective
Subjective
Date of Service: March 30, 2024
ostomy with brown soft stool still with increased nausea and pain to right side of ostomy
Objective
Data Reviewed
Laboratory Data:
Laboratory Results
03/30/24 06:30
03/30/24 06:30
Laboratory Results
PT 12.7 Sec (11.4-14.6) 03/21/24 12:24
INR 0.95 03/21/24 12:24
APTT 26.7 Sec (23.4-35.0) 03/21/24 12:24
Magnesium 2.1 mg/dl (1.6-2.3) 03/26/24 10:28
Total Bilirubin 0.6 mg/dl (0.2-1.3) 03/24/24 07:29
AST 25 U/L (14-36) 03/24/24 07:29
ALT 13 U/L (0-35) 03/24/24 07:29
Alkaline Phosphatase 72 U/L (38-126) 03/24/24 07:29
Vital Signs and I&O:
Vital Signs
Temp Pulse Resp BP Pulse Ox
98.6 F 91 16 126/80 96
03/30/24 07:27 03/30/24 07:27 03/30/24 07:27 03/30/24 07:27 03/30/24 07:27
I&O
03/29/24 03/30/24 03/31/24
06:59 06:59 06:59
Intake Total 490 / 490 2400 / 2400
Output Total 100 / 100
Balance 390 / 390 2400 / 2400
Physical Exam
Physical Exam
HEENT: Anicteric and Moist mucous membranes
Cardiology: Normal Sinus Rhythm
Pulmonary: Clear
GI: Soft, Distended, Tender (to left of ostomy ) and Other (ostomy with brown stool output )
Extremities: No Edema
Neuro: Non Focal
[2024-03-30] MEDS: FLUSH (NSS) 1 FLUSH IV (10:21)
[2024-03-30] MEDS: MIRALAX 17 GRAMS PO (10:21)
--- NOTE | 2024-03-30 10:24 | W.PN.CRS1 ---
Today's Communication / Plan
-
Continue low residue diet
Add Ensure shakes,
GI for nausea management
Assessment/Plan
-
49 yo female with stercoral colitis now POD#5 Sigmoid colectomy (partial) and end colostomy (Daniela's procedure)
AFVSS
WBC now normalized
NGT out o added n 03/24
-Lovenox for DVT prophylaxis. Teds and SCDs in place.
-OOB as tolerated
-Continue low residue diet. Ensure chocolate shakes 3 times daily.
-Encourage patient to drink water.
-Wound RN for stoma teaching, okay to change midline bandage when changing colostomy
-Continue IV Zosyn. Peritoneal cultures with E. coli and Enterococcus. E. coli is sensitive to Zosyn.
-OR pathology pending.
-c/w zofran/levsin (takes at home also)
-Anxiolytic prn
-Miralax 17gm daily
-Pain control: acetaminophen as needed, Dilaudid IV PRN, tramadol PRN, Toradol IV standing
-Appreciate GI, consulted for nausea management
Subjective Data
Procedure
03/22/2024- Sigmoid colectomy (partial) and end colostomy (Daniela's procedure)
Subjective Data
Date of Service: March 30, 2024
Patient states that she is still having issues with nausea. She has incisional pain. She has stool in her bag and flatus. She is tolerating a diet intermittently due to her nausea.
Objective Data
-
Vital Signs
Temp Pulse Resp BP Pulse Ox
98.6 F 91 16 126/80 96
03/30/24 07:27 03/30/24 07:27 03/30/24 07:27 03/30/24 07:27 03/30/24 07:27
Intake & Output
03/29/24 03/30/24 03/31/24
06:59 06:59 06:59
Intake Total 490 / 490 2400 / 2400
Output Total 100 / 100
Balance 390 / 390 2400 / 2400
Intake:
Oral fluids 240 / 240 2200 / 2200
IV piggybacks 250 / 250 200 / 200
Output:
Liquid stool amount 100 / 100
Colostomy 100 / 100
Other:
Number of approximated MODERATE 2 2
amounts of urine
Number of approximated LARGE 3
amounts of urine
Lab Results
03/30/24 06:30
03/30/24 06:30
Physical Exam
-
General: No Acute Distress and AOx3
Abdomen: Soft, Non Distended, Tender (Mild around incision) and Other (Colostomy warm and pink with stool in bag)
Skin: Warm and Dry
Incision: Clear, Dry, Intact
[2024-03-30] MEDS: ATIVAN 0.5 MG PO (10:27)
[2024-03-30] MEDS: LEVSIN 0.125 MG PO (10:27)
--- NOTE | 2024-03-30 11:17 | W.PN.UPDATE ---
Update Note
Progress Note Update
patient seen chart reviewed. discussed w nursing. texted dr gage. the patient continues to struggle with nausea. she remains anxious. she also admits she is upset when thinking about her case feeling it has perhaps been mismanaged resulting in
her having to suffer colostomy as a consequence. while she hopes colostomy will be successfully that is not a certainly and it will mean another surgery albeit a welcome surgery. she is not clear about the benefits of staying in the hospital at
this point and feels she may be more comfortable at home with her family supporting her and visiting nurses/aides as possible. she is worried that constipation will continue to be an issue for her even w colostomy. she is trying to be more
physically active in hospital but that might be easier at home as would activities to take her mind off illness. eating might also be easier as she would have more access to foods she wants. texted dr gage who will check w surgery. she does
have the name of a therapist i recommended whom she can call for virtual appt. would dc remeron. now that she can take po could use an antidep which does not have constipation as a side effect if she desires to try one. she has not tried the
remeron here. she is on ativan at present as a prn using it once or twice daily. would dc with ativan . if here tomorrow psych liliana see her.
--- NOTE | 2024-03-30 11:47 | W.PN.ID1 ---
Date of Service
Date of Service: March 30, 2024
Today's Communication
Change Zosyn to Augmentin. See below for duration.
Assessment / Plan
Stercoral colitis with perforation
- s/p partial sigmoid colectomy/Chang's procedure
- polymicrobial intraoperative cultures.
Vaginal yeast infection
Asthma
Raynaud's syndrome
Lupus
Trigeminal neuralgia
Dysautonomia
IBS
Diverticulosis/diverticulitis
Recommendations:
E. coli and Enterococcus faecium covered by Zosyn, but Enterococcus raffinosus is resistant to ampicillin.
Continue Zosyn while remains inpatient, but at discharge can transition to Augmentin; to continue through 04/08/2024
Continue linezolid 600 mg p.o. twice daily through 04/08/24
Continue with p.o. Diflucan through 03/31
����������������������������������������������������������
Chief Complaint
-: Other (Abdominal abscess)
Subjective / Review of Systems
Review of Systems: No Fever, No Chills and Nausea
Vital Signs / Physical Exam
Vital Signs
Vital Signs
Temp Pulse Resp BP Pulse Ox
98.6 F 91 16 126/80 96
03/30/24 07:27 03/30/24 07:27 03/30/24 07:27 03/30/24 07:27 03/30/24 08:04
Physical Exam
Constitutional: No Acute Distress, Comfortable and Non-toxic
Eyes: Sclera Anicteric
Cardiovascular: S1/S2; Negative S3/S4
Pulmonary: Non Labored
Gastrointestinal: Soft, Non Tender and Non Distended
Neurological: Awake and Alert
Psychological: Calm
Objective Data
Lab Data
Lab Results
03/30/24 06:30
03/30/24 06:30
PT 12.7 Sec (11.4-14.6) 03/21/24 12:24
INR 0.95 03/21/24 12:24
APTT 26.7 Sec (23.4-35.0) 03/21/24 12:24
Estimated Creat Clear 115 ml/min 03/30/24 06:30
Total Bilirubin 0.6 mg/dl (0.2-1.3) 03/24/24 07:29
AST 25 U/L (14-36) 03/24/24 07:29
ALT 13 U/L (0-35) 03/24/24 07:29
Alkaline Phosphatase 72 U/L (38-126) 03/24/24 07:29
Most recent labs reviewed.
Micro Results:
03/22/24 12:06 Wound Culture - Final
Abdomen Escherichia coli
Enterococcus faecium
Enterococcus raffinosus
Gram Stain - Final
03/22/24 12:06 Anaerobic Culture - Final
Abdomen
1. Escherichia coli
M.I.C. RX
--------- ---
Amoxicillin/Potas. Clavulanate <=8/4 S
Ampicillin >16 R
Ampicillin/Sulbactam 16/8 I
Aztreonam <=4 S
Cefazolin 4 I
Cefepime <=2 S
Ceftazidime <=1 S
Ceftriaxone <=1 S
Ertapenem <=0.5 S
Ciprofloxacin <=0.25 S
Gentamicin <=2 S
Meropenem <=1 S
Piperacillin/Tazobactam <=8 S
Tetracycline >8 R
Tobramycin <=2 S
Trimethoprim/Sulfamethoxazole <=2/38 S
2. Enterococcus faecium
M.I.C. RX
--------- ---
Ampicillin <=2 S
Daptomycin 4 SDD
Gentamicin Synergy Screen <=500 S
Linezolid 2 S
Vancomycin 0.5 S
3. Enterococcus raffinosus
M.I.C. RX
--------- ---
Ampicillin >8 R
Daptomycin 1 S
Gentamicin Synergy Screen <=500 S
Linezolid 2 S
Vancomycin 0.5 S
Imaging:
03/21/2024 CT abdomen/pelvis: In the left pelvis, at the junction of the distal descending colon and the sigmoid colon, there is a rounded focal area of stool within the colonic lumen, with adjacent chronic wall thickening and stranding of the
pericolonic fat. Findings are compatible with stercoral colitis. There are adjacent foci of extraluminal air, compatible with contained perforation. No evidence for free intraperitoneal air. Large amount of stool from the inferior right colon
through the superior descending colon. Please see full dictation for additional detail. Film personally viewed.
Care Review
Plan reviewed with: Physician (Hospitalist)
--- NOTE | 2024-03-30 12:18 | W.DS.TRANS ---
DC Summary - [employer]
-
Discharge Instructions:
Discharge Diagnosis/Procedures Stercoral colitis with contained perforation.
Sigmoid colectomy (partial) and end colostomy (
Daniela's procedure)
Diet Low Residue
Instructions:
Stand-Alone Forms:
Changes to Home Medications: Yes
Discharge Medications:
DC Medications w/original date entered in [facility]
hydroxychloroquine 200 mg tablet 300 mg PO DAILY lupus 03/20/18
cetirizine 10 mg tablet (Zyrtec) 10 mg PO DAILY Allergies 03/07/23
pantoprazole 40 mg tablet,delayed release (Protonix) 40 mg PO DAILY Gastrointestinal Issue 03/07/23
pregabalin 75 mg capsule (Lyrica) 75 mg PO BID Pain 03/07/23
baclofen 5 mg tablet 5 mg PO Q8HPRN PRN muscle spasm 03/21/24
cholecalciferol (vitamin D3) 50 mcg (2,000 unit) tablet (Vitamin D3) 50 mcg PO DAILY Supplement 03/21/24
cyanocobalamin (vitamin B-12) 1,000 mcg tablet 1,000 mcg PO DAILY Supplement 03/21/24
estradiol 0.025 mg/24 hr semiweekly transdermal patch 1 patch topical Q72H Hormonal Agent 03/21/24
hyoscyamine sulfate 0.125 mg sublingual tablet 0.125 mg PO Q8HPRN PRN nausea 03/21/24
levothyroxine 50 mcg tablet 50 mcg PO DAILY Thyroid 03/21/24
metoprolol tartrate 25 mg tablet 25 mg PO BID Blood Pressure 03/21/24
montelukast 10 mg tablet 10 mg PO HS Allergies 03/21/24
ondansetron 4 mg disintegrating tablet 4 mg PO DAILYPRN PRN nausea 03/21/24
peg 400-propylene glycol (PF) 0.4 %-0.3 % eye drops in a dropperette (Systane (PF)) 1 drp BOTH EYES Q6HPRN PRN dry eyes 03/21/24
progesterone micronized 100 mg capsule 100 mg PO HS Hormonal Agent 03/21/24
rimegepant 75 mg disintegrating tablet (Nurtec ODT) 75 mg PO DAILYPRN PRN migraines 03/21/24
amoxicillin 875 mg-potassium clavulanate 125 mg tablet 1 tab PO Q12 #18 tabs 03/30/24
fluconazole 100 mg tablet 100 mg PO DAILY #1 tab 03/30/24
linezolid 600 mg tablet 600 mg PO BID #18 tabs 03/30/24
lorazepam 0.5 mg tablet 0.5 mg PO Q8HPRN PRN anxiety #20 tabs 03/30/24
metoclopramide HCl 10 mg tablet 10 mg PO AC #90 tabs 03/30/24
oxycodone 5 mg tablet 5 mg PO Q4HPRN PRN moderate pain #30 tabs 03/30/24
polyethylene glycol 3350 17 gram oral powder packet (HealthyLax) 17 g PO BID #30 ea 03/30/24
simethicone 80 mg chewable tablet 80 mg PO TIDPRN PRN gas pain #60 tabs 03/30/24
Home Medication Changes
Antibiotics.
Ativan replaced Xanax
Amitriptyline stopped.
[place] added
Pending Results: No
--- NOTE | 2024-03-30 12:50 | CM ---
Met with patient and family to discuss discharge plan
Family will transport home
Plan: Discharge to home with [facility] today; per home health liaison, VN will visit patient on Tuesday; patient/ provided that information
--- NOTE | 2024-03-30 14:01 | WOUNDNOTE ---
[facility] RN NOTE: Patient visited for ostomy change/teaching prior to discharge today. Patient anxious and tearful at times, but did not require pain medication prior to ostomy change. Ostomy with small amount of thick stool. Stoma is irregular and flat
medially. Some drainage noted medially when appliance removed, but skin was intact. Plan is to try soft convex #[id number] and [place] seal. Patient and spouse state understanding of plan. Spouse is very supportive and asks appropriate questions. Patient
states she has been emptying pouch. Midline incision dressing clean and intact. Plan is for home with [facility] today.
== END 2024-03-30 14:33 | disposition home health service (06) | DRG 853 ==
LOC: 2 SOUTH 19:04
PROVIDERS: Emergency Medicine; Internal Medicine; Nurse Practitioner Gerontology; ADMITTING PHYSICIAN Hospitalist; ATTENDING PHYSICIAN Internal Medicine; CONSULT PHYSICIAN Psychiatry & Neurology Psychiatry; CONSULT PHYSICIAN Specialist; CONSULT PHYSICIAN Surgery; EMERGENCY PHYSICIAN Emergency Medicine; FAMILY PHYSICIAN Family Medicine; OTHER PHYSICIAN Internal Medicine Infectious Disease
PROC: 0DBP0ZZ Excision of Rectum, Open Approach (ICD-10-PCS; 2024-03-22)
PROC: 0D1N0Z4 Bypass Sigmoid Colon to Cutaneous, Open Approach (ICD-10-PCS; 2024-03-22)
DX: A41.9 Sepsis, unspecified organism (principal); K63.1 Perforation of intestine (nontraumatic); K65.9 Peritonitis, unspecified; D84.821 Immunodeficiency due to drugs; K56.7 Ileus, unspecified; K62.5 Hemorrhage of anus and rectum; D62 Acute posthemorrhagic anemia; K52.89 Other specified noninfective gastroenteritis and colitis; E87.6 Hypokalemia; M32.9 Systemic lupus erythematosus, unspecified; G50.0 Trigeminal neuralgia; J45.909 Unspecified asthma, uncomplicated; E03.9 Hypothyroidism, unspecified; G43.909 Migraine, unspecified, not intractable, without status migrainosus; F32.A Depression, unspecified; F43.22 Adjustment disorder with anxiety; G90.A Postural orthostatic tachycardia syndrome [POTS]; K56.41 Fecal impaction; Z79.60 Long term (current) use of unspecified immunomodulators and immunosuppressants; B37.31 Acute candidiasis of vulva and vagina; T81.89XA Other complications of procedures, not elsewhere classified, initial encounter; Y83.8 Other surgical procedures as the cause of abnormal reaction of the patient, or of later complication, without mention of misadventure at the time of the procedure
CPT/HCPCS: 88307; 74019; 74177; 80048; 80053; 83735; 85025; 85027; 85610; 85730; 86850; 86900; 86901; 87070; 87075; 87077; 87186; 87205; 96361; 96365; 96366; 96367; 96375; 96376; 99285; C1776; Q9967

== ENCOUNTER → 2024-04-03 14:15 | Outpatient (REF) | payer BC, SELFPAY | LOC: RAD 14:15 | PROVIDERS: ATTENDING PHYSICIAN Surgery; FAMILY PHYSICIAN Family Medicine | DX: R22.42 Localized swelling, mass and lump, left lower limb (principal) | CPT/HCPCS: 93971 ==

== ENCOUNTER 2024-04-12 17:36 | Inpatient (IN) | payer BC, SELFPAY ==
[2024-04-12] VITALS (10 sets, daily range): BP systolic 113–140; BP diastolic 68–110; BMI 26.8
--- NOTE | 2024-04-12 13:15 | ED.GENMED ---
History of Present Illness
General
Chief Complaint: Abdominal Pain
Source: patient and records
Time Seen by Provider: 04/12/24 13:03
History of Present Illness
History of Present Illness:
49yoF with a history of lupus and recent perforated stercoral colitis s/p Daniela's procedure on 03/22/24 presenting for evaluation of rectal bleeding. She started to develop RLQ abdominal pain yesterday and her heart rate seemed elevated. She
thought she may be dehydrated so increased her fluid intake and she felt better. She was doing housework this afternoon when she felt the urge to have a bowel movement. She started passing a moderate amount of dark red clots with rectal bleeding.
She came immediately to the ED for evaluation. Patient currently has some RLQ pain which is worse with certain positions. The output from her colostomy has been normal and non-bloody.
Past History
Past History
ED Past Medical History: Asthma, Other (Reynauds, lupus, trigeminal neuralgia, dysautonomia) and Other (IBS, diverticulosis, diverticulitis)
ED Past Surgical History: Gynecological
Social History
Tobacco: Non-smoker
Alcohol: None
Drug: None
Personal:
Living: with family
Employment: Employed
Phy Exam
General Physical Exam
General Presentation: well appearing and no apparent distress
General age: appears stated age
General Skin: warm and dry
General Habitus: normal
General Mental: alert
Cardiovascular Exam
Cardiovascular Exam: regular rate/rhythm
Pulmonary Exam
Pulmonary Exam: no respiratory distress
Gastrointestinal Exam
Gastrointestinal Exam: soft, non distended and tender (+Mild tenderness to RLQ. No guarding or rebound. Solid greenish brown stool output noted in colostomy bag.)
Rectal Exam: other (Mild amount of bright red blood noted on digital rectal exam. )
[place] Coma Scale
Eye Opening: Spontaneous
Verbal Response: Oriented
Motor Response: Obeys Commands
GCS Total Score: 15
Skin Exam
Skin Exam: normal color and warm/dry
Psychiatric Exam
Psychiatric Exam: anxious
Course
Orders/Labs/Results
Orders:
Orders
04/12/24 13:14
Test Result ONCE
04/12/24 13:17
Complete Blood Count/With Diff Urgent
Comprehensive Metabolic Panel Urgent
HCG, Serum Qualitative Screen Urgent
PTT Urgent
Prothrombin Time Urgent
Diphenhydramine [Benadryl] 50 mg IV NOW STA
Hydrocortisone Sod Succinate [Solu-Cortef] 200 mg IV NOW STA
Iohexol [Omnipaque] See Protocol PO NOW STA
04/12/24 13:38
Type+Screen Urgent
04/12/24 13:45
CT Abd/pelvis Angio W/wo Iv Urgent
Comment:
Reason For Exam: Rectal bleeding, RLQ pain, hx of recent colostomy
04/12/24 13:56
Morphine Sulfate 4 mg IV NOW STA
04/12/24 15:56
Morphine Sulfate 4 mg IV NOW STA
04/12/24 16:46
SURGICAL CONSULT Routine
Consulting Provider: Marko Morales
Was physician already notified: Yes
Reason for consult: rectal bleeding s/p colostomy
Abnormal Lab Results
04/12/24
13:17
RBC 3.65 L 10^6/uL
(4.20-5.40)
Hgb 10.6 L g/dL
(12.0-16.0)
Hct 33.7 L %
(37.0-47.0)
MCHC 31.5 L g/dL
(33.0-37.0)
RDW 15.5 H %
(11.5-14.5)
Plt Count 409 H 10^3/uL
(130-400)
Absolute Monos (auto) 1.0 H 10^3/uL
(0.1-0.6)
Monocytes % 9.9 H %
(1.7-9.3)
Creatinine 0.5 L mg/dL
(0.6-1.0)
Glucose 103 H mg/dl
(70-99)
04/12/24 13:17
04/12/24 13:17
Vital Signs
Initial and Last Documented VS:
Initial Vital Signs
Temp Pulse Resp BP Pulse Ox
98.4 F 104 20 135/93 100
04/12/24 12:49 04/12/24 12:49 04/12/24 12:49 04/12/24 12:49 04/12/24 12:49
Last Documented Vital Signs
Temp Pulse Resp BP Pulse Ox
98.4 F 98 14 135/75 94
04/12/24 12:49 04/12/24 16:30 04/12/24 16:30 04/12/24 15:54 04/12/24 16:30
MDM/Problems Addressed
Differential Diagnosis Includes:
49yoF here with rectal bleeding. Hx of perforated stercoral colitis s/p Daniela's procedure last month. One episode of dark red rectal bleeding/clots. Also having RLQ pain. She is afebrile and hemodynamically stable. She is well appearing in no
distress. No signs of peritonitis on abdominal exam. Mild amount of BRBPR on digital rectal exam. Colostomy output appears normal. Differential diagnosis includes but is not limited to: stercoral colitis, diverticular bleed, hemorrhoidal bleed,
anemia
Initial ED plan: Check CBC, CMP, coags, type and screen, and CT abdomen. Will discuss with colorectal surgery team.
*Critical Care Note
Total Time (30-74mins, 75-104mins- exclusive of procedures): Not Applicable
Update Note
Update Note:
Dr. Morales, colorectal surgeon, recommending CTA abdomen without PO contrast. Orders changed. Colorectal surgery recommending admission, serial H&H checks, and NPO status.
Hemoglobin 10.6 which is increased from last month. She was admitted for further evaluation and management.
ED Attending Note
-
Portions of this chart may have been created with voice recognition software.� Occasional wrong word or��sound alike� substitutions may have occurred due to the inherent limitations of voice recognition software.
Discharge Plan
Departure
Patient Disposition: Admit
Date of Disposition: 04/12/24
Time of Disposition: 15:57
Presentation/result/management discussed w/ accepting MD/DO: Hospitalist
Discharge Problem:
Rectal bleeding
Prescriptions:
No Action
cetirizine [Zyrtec] 10 mg Tablet
10 mg PO DAILY
pantoprazole [Protonix] 40 mg Tablet,Delayed Release (Dr/Ec)
40 mg PO DAILY
pregabalin [Lyrica] 75 mg Capsule
75 mg PO BID
Patient Comments:
04/12/24: Patient would like to hold this medication while in the hospital
levothyroxine 50 mcg Tablet
50 mcg PO DAILY
hyoscyamine sulfate 0.125 mg tablet, sublingual
0.125 mg PO Q8HPRN PRN (Reason: nausea)
montelukast 10 mg Tablet
10 mg PO HS
ondansetron 4 mg Tablet,Disintegrating
4 mg PO DAILYPRN PRN (Reason: nausea)
Systane (PF) 0.4-0.3 % Dropperette
1 drp BOTH EYES Q6HPRN PRN (Reason: dry eyes)
baclofen 5 mg Tablet
5 mg PO Q8HPRN PRN (Reason: muscle spasm)
Nurtec ODT 75 mg Tablet,Disintegrating
75 mg PO DAILYPRN PRN (Reason: migraines)
lorazepam 0.5 mg Tablet
0.5 mg PO Q8HPRN PRN (Reason: anxiety) Qty: 20 0RF
Patient Comments:
04/12/24: last filled 8/23/24 for 20 tablets over 7 days
metoclopramide HCl 10 mg Tablet
10 mg PO AC Qty: 90 0RF
oxycodone 5 mg Tablet
5 mg PO Q4HPRN PRN (Reason: moderate pain) Qty: 30 0RF
Patient Comments:
04/12/24: last filled 04/11/24 for 25 tablets over 7 days
metronidazole 500 mg Tablet
500 mg PO TID
ciprofloxacin HCl 500 mg Tablet
500 mg PO BID
acetaminophen [Tylenol Extra Strength] 500 mg Tablet
1,000 mg PO Q6HPRN PRN (Reason: mild pain)
fluoxetine 10 mg Capsule
10 mg PO DAILY
Patient Comments:
04/12/24: Patient would like to hold this medication while in the hospital
fluconazole 100 mg tablet
100 mg PO DAILYPRN PRN (Reason: yeast infection)
polyethylene glycol 3350 [HealthyLax] 17 gram powder in packet
17 g PO BIDPRN PRN (Reason: constipation)
Referrals:
Nino Bose MD [Family Provider] -
Interventions
Interventions:
*Risk Screen - Suicide Last Done: 04/12/24 13:44
*General Assessment Last Done: 04/12/24 13:44
*Neglect/Abuse Screening Last Done: 04/12/24 13:44
MP-Qinrdg-Slupgbolhs Assessment Last Done: 04/12/24 13:44
Discharge Date and Time
Print Language: RUSSIAN
[2024-04-12] MEDS: OMNIPAQUE 50 ML PO (13:31)
[2024-04-12 13:36] LABS: % Basophils 0.8 % (0-2); % Eosinophils 1.9 % (0-6); % Immature Granulocytes 0.3 % (0-0.5); % Monocytes 9.9 % (1.7-9.3); % Neutrophils 59.1 % (42.2-75.2); Absolute Basophils 0.1 10^3/uL (0-0.2); Absolute Eosinophils 0.2 10^3/uL (0-0.7); Absolute Lymphocytes 2.8 10^3/uL (1.2-3.4); Absolute Neutrophils 5.9 10^3/uL (1.4-6.5); Hematocrit 33.7 % (37.0-47.0); Hemoglobin 10.6 g/dL (12.0-16.0); Mean Corp Hgb Conc. 31.5 g/dL (33.0-37.0); Mean Corpuscular Volume 92.3 fL (81.0-99.0); Mean Platelet Volume 9.2 fL (7.4-10.4); Nucleated Red Blood Cells % 0 %; Platelet Count 409 10^3/uL (130-400); Red Blood Cell Count 3.65 10^6/uL (4.20-5.40); Red Cell Dist. Width 15.5 % (11.5-14.5)
[2024-04-12 13:47] LABS: PT 13.2 Sec (11.4-14.6)
[2024-04-12 13:48] LABS: ALT (SGPT) 14 U/L (0-35); APTT 27.7 Sec (23.4-35.0); AST (SGOT) 27 U/L (14-36); Albumin 4.7 g/dl (3.5-5.0); Alkaline Phosphatase 67 U/L (38-126); Blood Urea Nitrogen 7 mg/dl (7-17); Carbon Dioxide 30 mmol/L (22-30); Chloride 102 mmol/L (98-107); Estimated Creatinine Clearance 101 ml/min; Glucose 103 mg/dl (70-99); Sodium 143 mmol/L (135-145); Total Bilirubin 0.5 mg/dl (0.2-1.3); eGFR > 60.00
[2024-04-12 13:49] LABS: HCG, Serum Qualitative Screen Negative
[2024-04-12] MEDS: SOLU-CORTEF 200 MG IV (13:58)
[2024-04-12] MEDS: MORPHINE SULFATE 4 MG IV ×2 (13:58→16:04)
[2024-04-12] MEDS: BENADRYL 50 MG IV (13:59)
--- NOTE | 2024-04-12 15:58 | HPS.HSE ---
Addendum entered and electronically signed by FLAVIA Guaman 04/12/24 17:07:
may have clear liquid diet per color rectal
Original Note:
Family Physician
-
Family Physician: Nino Bose
Chief Complaint
-
Dark red blood with clots rectal
History of Present Illness
49-year-old female complaining of passing moderate lázaro of dark red blood with clots. She was noted to have small blood on rectal exam in the emergency department with hemoglobin of 10.6. She reports on 04/07/2024 she developed a fever 100.4.
She reached out to infectious disease Dr. Edwards and was given a 7-day course of Cipro, Flagyl she started on 04/08/2024 . She had prior Finished Augmentin 875 twice daily and linezolid 600 mg twice daily on 04/07/2024 due to recent surgery below
The patient is status post admission 03/21 - 03/30/2024 for stercoral colitis with contained perforation requiring sigmoid colectomy, partial colectomy and Daniela procedure with colostomy by Dr. Vilchis. She denies headache, fever, chills, chest
pain, palpitations, shortness breath, cough, vomiting, diarrhea. She is past medical history of lupus on chronic immunosuppression, trigeminal neuralgia, IBS, GERD, gastroparesis with chronic nausea hemorrhoids, hiatal hernia, Raynaud's, pots
disease, esophageal narrowing, asthma, anxiety, hypothyroidism, migraines, DDD, hypothyroidism, constipation
Medical History
Past Medical History
Past Medical History: Reports Other (systemic lupus erythematosus, Raynaud's, trigeminal neuralgia, dysautonomia, recently diagnosed POTS disease, GERD, hiatal hernia, esophageal narrowing, degenerative disc disease, IBS, asthma, hemorrhoids,
hypothyroidism, constipation, gastroparesis with chronic nausea)
Past Surgical History: Reports Other (uterine ablation)
Additional Past Surgical History:
status post admission 03/21 - 03/30/2024 for stercoral colitis with contained perforation requiring sigmoid colectomy, partial colectomy and Daniela procedure with colostomy by Dr. Vilchis
Social History
Tobacco: Non-smoker
Alcohol: None
Drug: None
Personal: Single
Living: With Family
Employment: Retired
Family History
Family History: Not pertinent
Allergies / Home Medications
Allergies reflects when Allergies were last updated in [email or web address].
Home Medications with original date entered in [email or web address]
Allergy/Medication List:
Allergies
Allergy/AdvReac Type Severity Reaction Status Date / Time
Gadolinium-Containing Allergy Rash Verified 04/12/24 12:54
Contrast Medi
Iodinated Contrast Media Allergy Rash Verified 04/12/24 12:54
latex Allergy Rash Verified 04/12/24 12:54
pollen extracts Allergy SEASONAL-watery Verified 04/12/24 12:54
eyes,
runny nose
Home Medications
cetirizine 10 mg tablet (Zyrtec) 10 mg PO DAILY Allergies 03/07/23
pantoprazole 40 mg tablet,delayed release (Protonix) 40 mg PO DAILY Gastrointestinal Issue 03/07/23
pregabalin 75 mg capsule (Lyrica) 75 mg PO BID Pain 03/07/23
baclofen 5 mg tablet 5 mg PO Q8HPRN PRN muscle spasm 03/21/24
hyoscyamine sulfate 0.125 mg sublingual tablet 0.125 mg PO Q8HPRN PRN nausea 03/21/24
levothyroxine 50 mcg tablet 50 mcg PO DAILY Thyroid 03/21/24
montelukast 10 mg tablet 10 mg PO HS Allergies 03/21/24
ondansetron 4 mg disintegrating tablet 4 mg PO DAILYPRN PRN nausea 03/21/24
peg 400-propylene glycol (PF) 0.4 %-0.3 % eye drops in a dropperette (Systane (PF)) 1 drp BOTH EYES Q6HPRN PRN dry eyes 03/21/24
rimegepant 75 mg disintegrating tablet (Nurtec ODT) 75 mg PO DAILYPRN PRN migraines 03/21/24
lorazepam 0.5 mg tablet 0.5 mg PO Q8HPRN PRN anxiety #20 tabs 03/30/24
metoclopramide HCl 10 mg tablet 10 mg PO AC #90 tabs 03/30/24
oxycodone 5 mg tablet 5 mg PO Q4HPRN PRN moderate pain #30 tabs 03/30/24
acetaminophen 500 mg tablet (Tylenol Extra Strength) 1,000 mg PO Q6HPRN PRN mild pain 04/12/24
alprazolam 0.5 mg tablet (Xanax) 0.5 mg PO BID 04/12/24
ciprofloxacin HCl 500 mg tablet 500 mg PO BID 04/12/24
fluconazole 100 mg tablet 100 mg PO DAILYPRN PRN yeast infection 04/12/24
fluoxetine 10 mg capsule 10 mg PO DAILY 04/12/24
metronidazole 500 mg tablet 500 mg PO TID 04/12/24
polyethylene glycol 3350 17 gram oral powder packet (HealthyLax) 17 g PO BIDPRN PRN constipation 04/12/24
Review of Systems
-
History Source: Patient and Family (mother at bedside )
A 12 point ROS was completed and negative except as noted: Yes
Constitutional: Reports Fever and Chills
EENT: Denies Sore Throat or Runny Nose
Respiratory: Denies Cough or Trouble Breathing
Cardiac: Denies Chest Pain, Diaphoresis or Palpitations
Abdomen/GI: Reports Abdominal Pain (Right lower quadrant radiating to left lower quadrant), Nausea (Chronic) and Bloody Stools (Bright red liquid stool in toilet with clots on toilet paper rectally, colostomy bag left lower quadrant with green
formed stool); Denies Vomiting, Diarrhea or Constipated
: Denies Dysuria, Frequency, Flank Pain, Incontinence, Difficulty Voiding or Urgency
Musculoskeletal: Denies Joint Pain or Edema
Skin: Denies Itching or Rash
Neurological: Denies Dizzy, Headache or Weakness
Endocrine: Reports No Symptoms
Hematologic/Lymphatic: Reports No Symptoms
Psych: Reports Calm (Flat affect)
Physical Exam
Vital Signs
Vital Signs
Temp Pulse Resp BP Pulse Ox
98.4 F 99 24 129/86 98
04/12/24 12:49 04/12/24 14:30 04/12/24 14:30 04/12/24 14:00 04/12/24 14:30
Physical Exam
General: Conversant and Pain; No Fever or Chills
HEENT: NormoCephalic, Anicteric, Moist mucous membranes, PERRLA, [place] Conjunctivae and No Ptosis
Respiratory: Clear; No Wheezes, Rales or Rhonchi
Cardiac: S1/S2 and Regular Rhythm; No Murmur, Rub, Gallop or Peripheral Edema
Breast: Deferred by me
GI: Soft, Non Distended, Tender (Right lower quadrant radiating across left lower quadrant, midline incision intact, colostomy left lower quadrant with formed green stool) and No Hepatosplenomegaly
Rectal: Deferred by Provider
Genito-urinary: Deferred by me
Musculoskeletal: No Clubbing, No Cyanosis and No Edema
Skin: Warm and Dry; No Rash
Neuro: AO x 3, No Motor Deficits, Nonfocal/grossly intact, Cranial Nerves Intact and No Sensory Deficits; No Slurred Speech, Facial Droop or Tremors
Psych: Calm
Laboratory Results
-
04/12/24 13:17
04/12/24 13:17
Laboratory Results
PT 13.2 Sec (11.4-14.6) 04/12/24 13:17
INR 1.00 04/12/24 13:17
APTT 27.7 Sec (23.4-35.0) 04/12/24 13:17
Total Bilirubin 0.5 mg/dl (0.2-1.3) 04/12/24 13:17
AST 27 U/L (14-36) 04/12/24 13:17
ALT 14 U/L (0-35) 04/12/24 13:17
Alkaline Phosphatase 67 U/L (38-126) 04/12/24 13:17
Data Reviewed
-
Lab Data: Labs Reviewed by me
Impression/Plan
-
Impression/plan:
[facility]
# Acute rectal bleeding likely incisional site bleeding
#Recent stercoral colitis with contained perforation requiring sigmoid colectomy, partial colectomy and Daniela procedure with colostomy by Dr. Vilchis- 03/21 - 03/30/2024
#Hx constipation
#Hx hemorrhoids
Finished Augmentin 875 twice daily and linezolid 600 mg twice daily on 04/07/2024
-Reports starting 7-day course Cipro and Flagyl on 04/08/2024 per ID for reported fever at 100.4 starting on 04/07/2024
-continue last 2 days of cipro flagyl
Hgb 10.6
-Check CT angio
-Consult colorectal surgery
-N.p.o.
-Monitor H&H
CT abdomen pelvis: 1.Status post partial colectomy. Left paramidline mid abdominal colostomy site appears intact. No proximal obstruction.
2. Mild to moderate proximal colonic fecal burden. Nonsolid fecal burden in distal small bowel loops without gross dilatation, suggesting pleural intestinal transit.
3. Daniela pouch noted, relatively collapsed.
4. No CT evidence of active gastrointestinal hemorrhage.
5. Appendicolith versus retained contrast material and proximal appendix. Most of the appendix contains gas within the lumen, without bowel wall thickening. The tip of the appendix is without
intraluminal gas and slightly distended up to 7 mm.
However, no adjacent or surrounding inflammatory changes to suggest acute appendicitis.
The possibility of appendicitis of the tip of the appendix cannot be entirely excluded in the proper clinical setting.
6. No obstructive uropathy. No ascites, focal collection or abscess. No free air.
# HX Sinus tachycardia secondary to pain/infection/POTS disease/dysautonomia
# Recently diagnosed POTS disease/dysautonomia
-Continue metoprolol 25 mg twice daily
#Systemic lupus erythematosus-on chronic immunosuppression
-Continue hydroxychloroquine
-Had steroid taper beginning of March
-Supposed to start methotrexate/IVIG in the near future as per her package checker
#Raynaud's disease
#Trigeminal neuralgia
-Continue Lyrica
#GERD/hiatal hernia
Hx gastroparesis with chronic nausea
-Continue Protonix
-Reglan was initiated recent admission
# Hx esophageal narrowing
#Degenerative disc disease
-Continue baclofen, ibuprofen/Lyrica
-Amitriptyline was DC'd recent admission
#IBS
#Asthma-no acute exacerbation
-Continue montelukast
#Anxiety
-Continue Xanax 0.5 mg twice daily, prior admission recommended Ativan but patient does not want to use
#Hypothyroidism
-Continue levothyroxine 50 mcg p.o. daily
#History of migraines
-Continue as needed Nurtec
DVT prophylaxis
SCDs
Full code
--- NOTE | 2024-04-12 16:59 | CON.MD ---
Consultation - Medical
-
History, vitals, labs, imaging reviewed. Patient seen and examined.
57-year-old female who is approximately 3 weeks status post urgent Daniela's resection by my partner Dr. Vilchis for perforated stercoral colitis here with concerns for transanal/rectal bleeding which occurred today at home and then recurred a bit in
the ER. Vitals and blood work reasonable. WBC normal. Hemoglobin reasonable at 10.6 which is actually higher than her discharge hemoglobin. The patient did undergo a CT angio which I reviewed. No active bleeding noted. No obstruction no free
air. There is mention of a appendiceal fecalith without obvious obstruction of the neck of the appendix or inflammation to indicate appendicitis. The patient has been on antibiotics under the care of ID and is 2 or 3 days more to finish up. At
this point I am not convinced she is active bleeding. It may well be simply rectal stump staple line ooze that occurred during the operation that is simply passed transanally. On abdominal exam she has some sensitivity in her midline incisional
area but she had this previously. AFIA deferred, however earlier exam the ER apparently did confirm some blood on AFIA. At this point, no need for urgent interventions of any sort. Agree with admission for hemoglobin monitoring. Agree with
continuing antibiotics as already planned. Will follow along.
Thanks.
[2024-04-12] MEDS: NSS 1000 IV (18:06)
--- NOTE | 2024-04-12 18:43 | W.PN.UPDATE ---
Update Note
Progress Note Update
This is an addendum to the H&P written by Meg Norton on 04/12/2024. Patient seen and examined independently with [employer].
49-year-old female past medical history of stercoral colitis status post urgent Chang's resection 3 weeks ago presenting with rectal bleeding. Output from ostomy is normal. Hemoglobin stable. CT angio without any active bleeding. There is
noted appendicicolith versus retained contrast material but without inflammatory changes to suggest appendicitis. On examination patient is tender across her lower abdomen. Initially tachycardic.
Continue oral antibiotic started by ID few days ago. IV fluids. Clear liquid diet. Monitor hemoglobin. Colorectal surgery following.
[2024-04-12] MEDS: CIPRO 500 MG PO (20:14)
[2024-04-12] MEDS: XANAX 0.5 MG PO (20:14)
[2024-04-12] MEDS: TYLENOL 1000 MG PO (20:42)
[2024-04-12] MEDS: ROXICODONE 5 MG PO (20:42)
[2024-04-12] MEDS: MIRALAX 17 GRAMS PO (20:52)
[2024-04-12] MEDS: ZOFRAN ODT (ORALLY DISINTEGRATING) 4 MG PO (20:52)
[2024-04-12 21:47] LABS: Hematocrit 30.1 % (37.0-47.0); Hemoglobin 10.1 g/dL (12.0-16.0)
[2024-04-12] MEDS: FLAGYL 500 MG PO (22:20)
[2024-04-12] MEDS: SINGULAIR 10 MG PO (22:20)
--- NOTE | 2024-04-12 23:00 | PTCARENOTE ---
Pt. extremely anxious, questioning why she was not ordered tele monitoring stating that her HR was elevated in the ER, she feels her heart 'racing' when she walks, and questioned how hospital staff would know if she had any cardiac involvement
without it. Denies any other cardiac symptoms. Attempted to educate pt. on med/surg status and plan of care but pt. still worried about cardiac involvement. [employer] contacted and tele orders received. Pt. NSR on rest with mild tachycardia, low
100s, upon ambulation. Will continue to monitor.
[2024-04-13 03:15] VITALS: BP 101/66
[2024-04-13] MEDS: ROXICODONE 5 MG PO ×4 (03:47→22:00)
[2024-04-13] MEDS: NSS 1000 IV (06:10)
[2024-04-13] MEDS: SYNTHROID 50 MCG PO (06:12)
[2024-04-13 07:01] VITALS: BP 113/67
[2024-04-13 07:42] LABS: ALT (SGPT) 12 U/L (0-35); AST (SGOT) 18 U/L (14-36); Albumin 3.4 g/dl (3.5-5.0); Alkaline Phosphatase 56 U/L (38-126); Blood Urea Nitrogen 6 mg/dl (7-17); Calcium 9.4 mg/dl (8.4-10.2); Carbon Dioxide 24 mmol/L (22-30); Chloride 104 mmol/L (98-107); Estimated Creatinine Clearance 101 ml/min; Glucose 88 mg/dl (70-99); Potassium 3.9 mmol/L (3.5-5.1); Sodium 141 mmol/L (135-145); Total Bilirubin 0.4 mg/dl (0.2-1.3); Total Protein 5.6 g/dl (6.3-8.2); eGFR > 60.00
--- NOTE | 2024-04-13 07:54 | VNURNOTE ---
Chart reviewed. Patient is current with [facility] nursing. Will continue to follow hospital course and DC plans.
[2024-04-13] MEDS: XANAX 0.5 MG PO ×2 (08:03→15:51)
[2024-04-13] MEDS: CIPRO 500 MG PO ×2 (08:03→20:40)
[2024-04-13] MEDS: PROZAC 10 MG PO (08:03)
[2024-04-13] MEDS: PROTONIX 40 MG PO (08:04)
[2024-04-13] MEDS: ZYRTEC 10 MG PO (08:04)
[2024-04-13] MEDS: REGLAN 10 MG PO ×3 (08:04→16:50)
[2024-04-13] MEDS: FLAGYL 500 MG PO ×3 (08:04→21:56)
[2024-04-13 08:54] LABS: % Basophils 0.7 % (0-2); % Eosinophils 0.9 % (0-6); % Immature Granulocytes 0.5 % (0-0.5); % Lymphocytes 24.1 % (20.5-51.1); % Monocytes 9.4 % (1.7-9.3); % Neutrophils 64.4 % (42.2-75.2); Absolute Basophils 0.1 10^3/uL (0-0.2); Absolute Eosinophils 0.1 10^3/uL (0-0.7); Absolute Immature Granulocytes 0.1 10^3/uL (0-0.05); Absolute Lymphocytes 2.4 10^3/uL (1.2-3.4); Absolute Monocytes 0.9 10^3/uL (0.1-0.6); Absolute Neutrophils 6.4 10^3/uL (1.4-6.5); Hematocrit 28.3 % (37.0-47.0); Hemoglobin 9.1 g/dL (12.0-16.0); Mean Corp Hgb Conc. 32.2 g/dL (33.0-37.0); Mean Corpuscular Hgb 28.4 pg (27.0-31.0); Mean Corpuscular Volume 88.4 fL (81.0-99.0); Mean Platelet Volume 9.2 fL (7.4-10.4); Nucleated Red Blood Cells % 0 %; Platelet Count 327 10^3/uL (130-400); Red Cell Dist. Width 15.8 % (11.5-14.5)
--- NOTE | 2024-04-13 09:26 | W.PN.HOSP.TC ---
Today's Communication/Plan
-
repeat Hg this afternoon
continue oral antibiotics
F/U further CRS recs
Assessment / Plan
Assessment / Plan
49-year-old female past medical history of stercoral colitis status post urgent Chang's resection 3 weeks ago presenting with rectal bleeding.
CTA
IMPRESSION:
Status post partial colectomy. Left paramidline mid abdominal colostomy site appears intact. No proximal obstruction. Mild to moderate proximal colonic fecal burden. Nonsolid fecal burden in distal small bowel loops without gross dilatation,
suggesting pleural intestinal transit.
Daniela pouch noted, relatively collapsed.
No CT evidence of active gastrointestinal hemorrhage.
Appendicolith versus retained contrast material and proximal appendix. Most of the appendix contains gas within the lumen, without bowel wall thickening. The tip of the appendix is without intraluminal gas and slightly distended up to 7 mm. However,
no adjacent or surrounding inflammatory changes to suggest acute appendicitis. The possibility of appendicitis of the tip of the appendix cannot be entirely excluded in the proper clinical setting.
No obstructive uropathy. No ascites, focal collection or abscess. No free air.
# Acute rectal bleeding likely incisional site bleeding
#Recent stercoral colitis with contained perforation requiring sigmoid colectomy, partial colectomy and Daniela procedure with colostomy by Dr. Vilchis- 03/21 - 03/30/2024
#Hx constipation
#Hx hemorrhoids
Finished Augmentin 875 twice daily and linezolid 600 mg twice daily on 04/07/2024
-Reports starting 7-day course Cipro and Flagyl on 04/08/2024 per ID for reported fever at 100.4 starting on 04/07/2024
-continue last 2 days of cipro flagyl - afebrile here with normal WBC
-Hgb 10.6 --> 9.1 this AM in setting of fluids - repeat this afternoon
-CRS consult appreciated - likely rectal stump staple line ooze
# HX Sinus tachycardia secondary to pain/infection/POTS disease/dysautonomia
# Recently diagnosed POTS disease/dysautonomia
-Continue metoprolol 25 mg twice daily
#Systemic lupus erythematosus-on chronic immunosuppression
-Continue hydroxychloroquine
-Had steroid taper beginning of March
-Supposed to start methotrexate/IVIG in the near future as per her night coordinator
#Raynaud's disease
#Trigeminal neuralgia
-Continue Lyrica
#GERD/hiatal hernia
Hx gastroparesis with chronic nausea
-Continue Protonix
-Reglan was initiated recent admission
# Hx esophageal narrowing
#Degenerative disc disease
-Continue baclofen, ibuprofen/Lyrica
-Amitriptyline was DC'd recent admission
#IBS
#Asthma-no acute exacerbation
-Continue montelukast
#Anxiety
-Continue Xanax 0.5 mg twice daily, prior admission recommended Ativan but patient does not want to use
#Hypothyroidism
-Continue levothyroxine 50 mcg p.o. daily
#History of migraines
-Continue as needed Nurtec
DVT prophylaxis
SCDs
Full code
Anticipated Discharge: 24 - 48 hours
Subjective/Interval History
-
Date of Service: April 13, 2024
continues to have lower abdominal pain, more on right
Objective Data
-
Labs:
Laboratory Results
04/12/24 04/13/24
21:28 06:30
WBC 10.0
Hgb 10.1 L 9.1 L
Hct 30.1 L 28.3 L
Plt Count 327 D
Sodium 141
Potassium 3.9
Chloride 104
Carbon Dioxide 24
BUN 6 L
Creatinine 0.5 L
Glucose 88
Calcium 9.4
Total Bilirubin 0.4
AST 18
ALT 12
Alkaline Phosphatase 56
Vital Signs:
Vital Signs
Temp Pulse Resp BP Pulse Ox
98.2 F 82 16 113/67 98
04/13/24 07:01 04/13/24 07:01 04/13/24 07:01 04/13/24 07:01 04/13/24 07:01
I&O
04/12/24 04/13/24 04/14/24
06:59 06:59 06:59
Intake Total 240 / 240
Balance 240 / 240
Review of Systems
-
History Source: Patient
All other systems: Reviewed and negative
Physical Exam
-
General: Well Developed, Well Nourished and No Apparent Distress
HEENT: Normocephalic and Atraumatic
Respiratory: Clear to Auscultation; Negative Wheezes or Rhonchi
Cardiac: Regular Rhythm and S1/S2; Negative Murmur
GI: Soft, Nontender, Nondistended, Normal Bowel Sounds and Ostomy
Musculoskeletal: No Clubbing, No Cyanosis and No Edema
Neuro: Awake and Alert
Psych: Anxious
Data Reviewed
-
Diagnostic Radiology: Report Reviewed by me
Labs: Labs Reviewed by me
--- NOTE | 2024-04-13 09:29 | CM ---
Reviewed the chart notes. Patient recently hospitalized (03/21-03/30) and discharged to home with [facility]. The patient resides with her spouse in a two story home with two steps to enter. The patient does not have DME nor been to a SNF. The
[facility]'s pharmacy is [facility]. CM continues to be available to patient/family and is monitoring medical plan for needs at discharge.
Plan: Discharge back to home with resumption of [facility] services when medically stable.
--- NOTE | 2024-04-13 10:55 | W.PN.CRS1 ---
Today's Communication / Plan
-
trend h/h
clears
patient advocate
Assessment/Plan
-
49 yo female with stercoral colitis s/p Sigmoid colectomy (partial) and end colostomy (Daniela's procedure) on 03/22 with an episode of rectal bleeding
AFVSS
WBC 10.0, Hgb 9.1 from 10.1 from 10.6
-Continue clear liquid diet
-Trend hemoglobin another 24 hours prior to discharge, would ultimately like to see hemoglobin plateau
-OOB as tolerated
-TEDS ordered, SCDS in place for DVT prophylaxis. Holding on lovenox subq given bleeding.
-Will add Ensure to her clear liquid diet.
-Continue oral antibiotics
-Miralax 17gm daily PRN
-Will plan on re-imaging tomorrow if still having abdominal pain
-Patient and mother spoken to at length and they expressed some concerns, will have patient advocate see patient
-Discused with hospitalist
Subjective Data
Subjective Data
Date of Service: April 13, 2024
Patient states she is having some abdominal pain on the right side when she has clears. She has no further blood from her rectum overnight. She denies nausea or vomiting.
Objective Data
-
Vital Signs
Temp Pulse Resp BP Pulse Ox
98.2 F 82 16 113/67 98
04/13/24 07:01 04/13/24 07:01 04/13/24 07:01 04/13/24 07:01 04/13/24 07:01
Intake & Output
04/12/24 04/13/24 04/14/24
06:59 06:59 06:59
Intake Total 240 / 240
Balance 240 / 240
Intake:
Oral fluids 240 / 240
Other:
Number of approximated MODERATE 2
amounts of urine
Lab Results
04/13/24 06:30
Physical Exam
-
General: No Acute Distress and AOx3
Abdomen: Soft, Non Distended, Non Tender and Other (colostomy warm and pink with formed stool output)
Skin: Warm and Dry
Incision: Clear, Dry, Intact
[2024-04-13 11:20] VITALS: BP 122/80
--- NOTE | 2024-04-13 12:00 | PTOTSP ---
Therapist spoke with the patient, who noted she has abdominal pain but otherwise is not having issues with her mobility (was setting up a lot of Halloween decorations at home prior to admission). Patient is agreeable to PT signing off and is aware
our services are available if needed.
[2024-04-13 14:20] LABS: Hemoglobin 10.2 g/dL (12.0-16.0)
[2024-04-13] MEDS: MYLICON 80 MG PO (14:32)
--- NOTE | 2024-04-13 14:56 | W.PN.UPDATE ---
Update Note
Progress Note Update
I spoke to the patient. She has right lower quadrant pain that is intermittent. She says it is a little worse than yesterday. She is mild to moderately tender on right lower quadrant palpation. She denies nausea or vomiting. She is eating. She
has not had much stool output today. I advised her that she should have a CT of the abdomen and pelvis with p.o. and IV contrast given her worsening pain. She is hesitant to have IV dye. She is willing to do oral contrast. I will speak to the
radiologist to determine if this will be an adequate enough study. Plan to follow.
[2024-04-13 15:50] VITALS: BP 139/89
--- NOTE | 2024-04-13 17:45 | PTCARENOTE ---
Spoke to patient regarding contrast allergies. Patient stated she was allergic to barium oral and gadolinium IV. When going to give patient oral contrast for CT scan as ordered, patient stated that she was allergic to iodine as well. Dr. Jerome made
aware. Dr Jerome ordered benadryl and solu-cortef prior to CT scan and reordered CT scan for IV and oral. Patient stated she did not want IV contrast, as she had just received it yesterday and was worried about her kidneys. Dr. Jerome made aware. "Susy"Justus told RN to hold off on the CT scan for now and will be in to see patient later today. Patient made aware.
[2024-04-13 19:43] VITALS: BP 126/80
--- NOTE | 2024-04-13 20:06 | W.PN.UPDATE ---
Update Note
Progress Note Update
Read the chart and evaluated the patient at bedside; she has developed constipation over the last 1 to 2 days with mild RLQ abdominal pain that also radiates like a band across the lower abdomen; on exam, she is soft, nondistended, mildly tender in
the right lower quadrant to suprapubic region, no McBurney's tenderness; I reviewed the CT scan yesterday and the CT scan from a month ago; the appearance of the appendix appears stable with appendicolith and no thickening of the appendiceal wall
and no surrounding inflammation; my suspicion for appendicitis is extremely low; I do not think a repeat CT scan is necessary; on her CT scan yesterday, there was significant stool burden in the right side of the colon, which can cause abdominal
pain as well; okay for low fiber diet, continue Cipro Flagyl, will increase MiraLAX to twice daily
[2024-04-13] MEDS: MIRALAX 17 GRAMS PO (20:41)
--- NOTE | 2024-04-13 20:58 | PTCARENOTE ---
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 Patient was NSR, HR in 80's at beginning of shift. I explained tele order is still active but it is her choice if she would like to refuse to wear it. Tele removed and assessment ongoing.
[2024-04-13] MEDS: XANAX PO ×2 (21:56→22:13)
[2024-04-13] MEDS: SINGULAIR 10 MG PO (21:56)
[2024-04-13] MEDS: ZOFRAN ODT (ORALLY DISINTEGRATING) 4 MG PO (22:33)
[2024-04-13 23:51] VITALS: BP 111/63
[2024-04-14 03:56] VITALS: BP 106/75
[2024-04-14] MEDS: SYNTHROID 50 MCG PO (06:13)
[2024-04-14] MEDS: TYLENOL 1000 MG PO (06:17)
[2024-04-14] MEDS: ROXICODONE 5 MG PO (06:17)
[2024-04-14 07:24] LABS: % Basophils 1.3 % (0-2); % Eosinophils 3.8 % (0-6); % Immature Granulocytes 0.3 % (0-0.5); % Lymphocytes 31.5 % (20.5-51.1); % Monocytes 8.4 % (1.7-9.3); % Neutrophils 54.7 % (42.2-75.2); Absolute Basophils 0.1 10^3/uL (0-0.2); Absolute Eosinophils 0.2 10^3/uL (0-0.7); Absolute Monocytes 0.5 10^3/uL (0.1-0.6); Absolute Neutrophils 3.5 10^3/uL (1.4-6.5); Hematocrit 29.4 % (37.0-47.0); Hemoglobin 9.5 g/dL (12.0-16.0); Mean Corp Hgb Conc. 32.3 g/dL (33.0-37.0); Mean Corpuscular Hgb 28.3 pg (27.0-31.0); Mean Corpuscular Volume 87.5 fL (81.0-99.0); Mean Platelet Volume 9.6 fL (7.4-10.4); Nucleated Red Blood Cells % 0 %; Platelet Count 332 10^3/uL (130-400); Red Blood Cell Count 3.36 10^6/uL (4.20-5.40); Red Cell Dist. Width 15.7 % (11.5-14.5); White Blood Cell Count 6.3 10^3/uL (4.8-10.8)
[2024-04-14 07:48] VITALS: BP 126/77
[2024-04-14 07:54] LABS: ALT (SGPT) 12 U/L (0-35); AST (SGOT) 20 U/L (14-36); Albumin 3.4 g/dl (3.5-5.0); Alkaline Phosphatase 57 U/L (38-126); Blood Urea Nitrogen 6 mg/dl (7-17); Calcium 9.1 mg/dl (8.4-10.2); Carbon Dioxide 25 mmol/L (22-30); Chloride 105 mmol/L (98-107); Estimated Creatinine Clearance 101 ml/min; Glucose 92 mg/dl (70-99); Potassium 3.7 mmol/L (3.5-5.1); Sodium 143 mmol/L (135-145); Total Bilirubin 0.4 mg/dl (0.2-1.3); Total Protein 5.6 g/dl (6.3-8.2); eGFR > 60.00
[2024-04-14] MEDS: XANAX 0.5 MG PO (08:43)
[2024-04-14] MEDS: CIPRO 500 MG PO (08:43)
[2024-04-14] MEDS: ZYRTEC 10 MG PO (08:43)
[2024-04-14] MEDS: REGLAN 10 MG PO ×2 (08:43→12:40)
[2024-04-14] MEDS: FLAGYL 500 MG PO (08:43)
[2024-04-14] MEDS: COLACE 100 MG PO (08:43)
[2024-04-14] MEDS: PROZAC 10 MG PO (08:43)
[2024-04-14] MEDS: PROTONIX 40 MG PO (08:43)
[2024-04-14] MEDS: MIRALAX 17 GRAMS PO (08:44)
--- NOTE | 2024-04-14 09:18 | W.PN.HOSP.TC ---
Today's Communication/Plan
-
likely DC after seen by CRS
Assessment / Plan
Assessment / Plan
49-year-old female past medical history of stercoral colitis status post urgent Chang's resection 3 weeks ago presenting with rectal bleeding.
CTA
IMPRESSION:
Status post partial colectomy. Left paramidline mid abdominal colostomy site appears intact. No proximal obstruction. Mild to moderate proximal colonic fecal burden. Nonsolid fecal burden in distal small bowel loops without gross dilatation,
suggesting pleural intestinal transit.
Daniela pouch noted, relatively collapsed.
No CT evidence of active gastrointestinal hemorrhage.
Appendicolith versus retained contrast material and proximal appendix. Most of the appendix contains gas within the lumen, without bowel wall thickening. The tip of the appendix is without intraluminal gas and slightly distended up to 7 mm. However,
no adjacent or surrounding inflammatory changes to suggest acute appendicitis. The possibility of appendicitis of the tip of the appendix cannot be entirely excluded in the proper clinical setting.
No obstructive uropathy. No ascites, focal collection or abscess. No free air.
# Acute rectal bleeding likely incisional site bleeding
#Recent stercoral colitis with contained perforation requiring sigmoid colectomy, partial colectomy and Daniela procedure with colostomy by Dr. Vilchis- 03/21 - 03/30/2024
#Hx constipation
#Hx hemorrhoids
Finished Augmentin 875 twice daily and linezolid 600 mg twice daily on 04/07/2024
-Reports starting 7-day course Cipro and Flagyl on 04/08/2024 per ID for reported fever at 100.4 starting on 04/07/2024
-continue last 2 days of cipro flagyl - afebrile here with normal WBC
-Hgb 10.6 --> 9.1 this AM in setting of fluids - stable this AM, 9.5
-CRS consult appreciated - likely rectal stump staple line ooze and constipation
-continue Miralax
-likely DC after seen by CRS
# HX Sinus tachycardia secondary to pain/infection/POTS disease/dysautonomia
# Recently diagnosed POTS disease/dysautonomia
-Continue metoprolol 25 mg twice daily
#Systemic lupus erythematosus-on chronic immunosuppression
-Continue hydroxychloroquine
-Had steroid taper beginning of March
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
#Raynaud's disease
#Trigeminal neuralgia
-Continue Lyrica
#GERD/hiatal hernia
Hx gastroparesis with chronic nausea
-Continue Protonix
-Reglan was initiated recent admission
# Hx esophageal narrowing
#Degenerative disc disease
-Continue baclofen, ibuprofen/Lyrica
-Amitriptyline was DC'd recent admission
#IBS
#Asthma-no acute exacerbation
-Continue montelukast
#Anxiety
-Continue Xanax 0.5 mg twice daily, prior admission recommended Ativan but patient does not want to use
#Hypothyroidism
-Continue levothyroxine 50 mcg p.o. daily
#History of migraines
-Continue as needed Nurtec
DVT prophylaxis
SCDs
Full code
Anticipated Discharge: Within 24 hours
Subjective/Interval History
-
Date of Service: April 14, 2024
had a lot of output from ostomy and feeling better, wants to go home
Objective Data
-
Labs:
Laboratory Results
04/14/24
05:39
WBC 6.3
Hgb 9.5 L
Hct 29.4 L
Plt Count 332
Sodium 143
Potassium 3.7
Chloride 105
Carbon Dioxide 25
BUN 6 L
Creatinine 0.6
Glucose 92
Calcium 9.1
Total Bilirubin 0.4
AST 20
ALT 12
Alkaline Phosphatase 57
Vital Signs:
Vital Signs
Temp Pulse Resp BP Pulse Ox
98.3 F 80 18 126/77 97
04/14/24 07:48 04/14/24 07:48 04/14/24 07:48 04/14/24 07:48 04/14/24 07:48
I&O
04/13/24 04/14/24 04/15/24
06:59 06:59 06:59
Intake Total 240 / 240 360 / 360
Balance 240 / 240 360 / 360
Review of Systems
-
History Source: Patient
All other systems: Reviewed and negative
Physical Exam
-
General: Well Developed, Well Nourished and No Apparent Distress
HEENT: Normocephalic and Atraumatic
Respiratory: Clear to Auscultation; Negative Wheezes or Rhonchi
Cardiac: Regular Rhythm and S1/S2; Negative Murmur
GI: Soft, Nontender, Nondistended, Normal Bowel Sounds and Ostomy
Musculoskeletal: No Clubbing, No Cyanosis and No Edema
Neuro: Awake and Alert
Psych: Calm
Data Reviewed
-
Diagnostic Radiology: Report Reviewed by me
Labs: Labs Reviewed by me
[2024-04-14] MEDS: ZOFRAN ODT (ORALLY DISINTEGRATING) 4 MG PO (09:45)
--- NOTE | 2024-04-14 12:17 | W.DS.TRANS ---
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
-
Discharge Instructions:
Discharge Diagnosis/Procedures constipation
Diet Regular
Activity As tolerated
Driving Restrictions As prior to admission
Bathing Restrictions None
Instructions:
Stand-Alone Forms:
Changes to Home Medications: Yes
Discharge Medications:
DC Medications w/original date entered in [facility]
cetirizine 10 mg tablet (Zyrtec) 10 mg PO DAILY Allergies 03/07/23
pantoprazole 40 mg tablet,delayed release (Protonix) 40 mg PO DAILY Gastrointestinal Issue 03/07/23
pregabalin 75 mg capsule (Lyrica) 75 mg PO BID Pain 03/07/23
baclofen 5 mg tablet 5 mg PO Q8HPRN PRN muscle spasm 03/21/24
hyoscyamine sulfate 0.125 mg sublingual tablet 0.125 mg PO Q8HPRN PRN nausea 03/21/24
levothyroxine 50 mcg tablet 50 mcg PO DAILY Thyroid 03/21/24
montelukast 10 mg tablet 10 mg PO HS Allergies 03/21/24
ondansetron 4 mg disintegrating tablet 4 mg PO DAILYPRN PRN nausea 03/21/24
peg 400-propylene glycol (PF) 0.4 %-0.3 % eye drops in a dropperette (Systane (PF)) 1 drp BOTH EYES Q6HPRN PRN dry eyes 03/21/24
rimegepant 75 mg disintegrating tablet (Nurtec ODT) 75 mg PO DAILYPRN PRN migraines 03/21/24
lorazepam 0.5 mg tablet 0.5 mg PO Q8HPRN PRN anxiety #20 tabs 03/30/24
metoclopramide HCl 10 mg tablet 10 mg PO AC #90 tabs 03/30/24
oxycodone 5 mg tablet 5 mg PO Q4HPRN PRN moderate pain #30 tabs 03/30/24
acetaminophen 500 mg tablet (Tylenol Extra Strength) 1,000 mg PO Q6HPRN PRN mild pain 04/12/24
alprazolam 0.5 mg tablet (Xanax) 0.5 mg PO BID Mental Health/Anxiety 04/12/24
ciprofloxacin HCl 500 mg tablet 500 mg PO BID Infection 04/12/24
fluconazole 100 mg tablet 100 mg PO DAILYPRN PRN yeast infection 04/12/24
fluoxetine 10 mg capsule 10 mg PO DAILY Mental Health/Anxiety 04/12/24
metronidazole 500 mg tablet 500 mg PO TID Infection 04/12/24
polyethylene glycol 3350 17 gram oral powder packet (HealthyLax) 17 g PO BIDPRN PRN constipation 04/12/24
polyethylene glycol 3350 17 gram oral powder packet (HealthyLax) 17 g PO BID #60 ea 04/14/24
Home Medication Changes
additoin of Miralax
Pending Results: No
--- NOTE | 2024-04-14 12:47 | W.PN.CRS1 ---
Today's Communication / Plan
-
As below
Assessment/Plan
-
49 yo female with PMH of SLE, Raynaud's, trigeminal neuralgia, POTS, GERD, hiatal hernia, chronic nausea likely secondary to gastroparesis, dysautonomia, chronic constipation, hypothyroidism who was recently hospitalized for stercoral colitis
requiring exlap Daniela's, discharged on 03/30, who presented with rectal bleeding, CTA was negative for active bleeding, Hb stable; developed some RLQ abdominal pain but vague in nature associated with constipation
AFVSS
WBC 6.3, Hb 9.5 from 10.2 (overall trend stable), CR 0.6
-Continue low residue
� Abdominal pain likely related to constipation as seen on CTA; improved with MiraLAX; continue MiraLAX twice daily
�Rectal bleed, Hb stable and no further bleeding; holding DVT PPx; likely retained blood clot from index surgery released itself
-OOB as tolerated, encourage IS
� Appreciate ID; continue Cipro Flagyl
-Appreciate hospitalist
Dispo�okay for DC from CRS perspective; needs MiraLAX twice daily after discharge and follow-up with Dr. Vilchis in 1 to 2 weeks
Subjective Data
Subjective Data
Date of Service: April 14, 2024
No overnight events. Having better ostomy function and the abdominal pain improved.
Denies nausea/vomiting. Tolerating diet.
+ Ostomy function (loose/formed improved from yesterday) +voiding
Pt is OOB.
Objective Data
-
Vital Signs
Temp Pulse Resp BP Pulse Ox
98.3 F 80 18 126/77 97
04/14/24 07:48 04/14/24 07:48 04/14/24 07:48 04/14/24 07:48 04/14/24 07:48
Intake & Output
04/13/24 04/14/24 04/15/24
06:59 06:59 06:59
Intake Total 240 / 240 360 / 360
Balance 240 / 240 360 / 360
Intake:
Oral fluids 240 / 240 360 / 360
Other:
Number of approximated MODERATE 2 4
amounts of urine
Lab Results
04/14/24 05:39
04/14/24 05:39
Physical Exam
-
General: No Acute Distress and AOx3
HEENT: Grossly Normal
Abdomen: Soft, Non Distended, Tender (Appropriately tender near incision and ostomy), No Guarding, No Rebound and Other (Ostomy pink and productive of stool)
Skin: Warm and Dry
Wound: No Signs of Infection (Incision well-healed), No Skin Erythema and Other (No purulent drainage)
--- NOTE | 2024-04-14 13:12 | W.DCSUMMARY ---
Discharge Summary
Discharge Data
Date of Admission: 04/12/24
Date of Discharge: 04/14/24
-
Pending Results: No
Hospital Course
Discharging Physician : Dr. Delia Gates
Disposition : Home
Primary care physician : Dr. Nino Boes
Principal Discharge diagnosis : Constipation
Hospital Course :
Ms. Wei Jones is a 49 yo woman with hx SLE, trigeminal neuralgia, POTS, GERD, gastroparesis, perforated stercoral colitis s/p urgent Daniela's resection 03/22/24 s/p Augmentin course followed by Cipro/Flagyl presents to the ER with report of
rectal bleeding. Triage vitals stable and Hg 10 10.6. CTA without active hemorrhage. She was admitted to medicine with CRS consulting. Per surgery, blood thought 2/2 rectal stump staple line ooze. Hg remained stable during hospital course.
Patient had lower abdominal discomfort 2/2 constipation. She was given miralax with improvement and is told to take twice a day at discharge.
Time spent on discharge was 32 minutes.
Important imaging findings :
CTA
IMPRESSION:
Status post partial colectomy. Left paramidline mid abdominal colostomy site appears intact. No proximal obstruction. Mild to moderate proximal colonic fecal burden. Nonsolid fecal burden in distal small bowel loops without gross dilatation,
suggesting pleural intestinal transit.
Daniela pouch noted, relatively collapsed.
No CT evidence of active gastrointestinal hemorrhage.
Appendicolith versus retained contrast material and proximal appendix. Most of the appendix contains gas within the lumen, without bowel wall thickening. The tip of the appendix is without intraluminal gas and slightly distended up to 7 mm. However,
no adjacent or surrounding inflammatory changes to suggest acute appendicitis. The possibility of appendicitis of the tip of the appendix cannot be entirely excluded in the proper clinical setting.
No obstructive uropathy. No ascites, focal collection or abscess. No free air.
Procedure findings :
Discharge Plan
-
Patient Disposition: Home (Routine Discharge)
Discharge Diagnosis/Procedures: constipation
Diet: Regular
Activity: As tolerated
Driving Restrictions: As prior to admission
Bathing Restrictions: None
Referrals:
Joseph Vilchis MD [Active] - in one to two weeks
Nino Bose MD [Family Provider] - in less than 1 week
Additional Discharge Medication Instructions: Take Miralax twice a day (OK to decrease to daily in setting of frequent stools).
Prescriptions:
New
polyethylene glycol 3350 [HealthyLax] 17 gram Powder In Packet
17 g PO BID Qty: 60 0RF
Continued
cetirizine [Zyrtec] 10 mg Tablet
10 mg PO DAILY
pantoprazole [Protonix] 40 mg Tablet,Delayed Release (Dr/Ec)
40 mg PO DAILY
pregabalin [Lyrica] 75 mg Capsule
75 mg PO BID
Patient Comments:
04/12/24: Patient would like to hold this medication while in the hospital
levothyroxine 50 mcg Tablet
50 mcg PO DAILY
hyoscyamine sulfate 0.125 mg tablet, sublingual
0.125 mg PO Q8HPRN PRN (Reason: nausea)
montelukast 10 mg Tablet
10 mg PO HS
ondansetron 4 mg Tablet,Disintegrating
4 mg PO DAILYPRN PRN (Reason: nausea)
Systane (PF) 0.4-0.3 % Dropperette
1 drp BOTH EYES Q6HPRN PRN (Reason: dry eyes)
baclofen 5 mg Tablet
5 mg PO Q8HPRN PRN (Reason: muscle spasm)
Nurtec ODT 75 mg Tablet,Disintegrating
75 mg PO DAILYPRN PRN (Reason: migraines)
lorazepam 0.5 mg Tablet
0.5 mg PO Q8HPRN PRN (Reason: anxiety) Qty: 20 0RF
Patient Comments:
04/12/24: last filled 03/30/24 for 20 tablets over 7 days
metoclopramide HCl 10 mg Tablet
10 mg PO AC Qty: 90 0RF
oxycodone 5 mg Tablet
5 mg PO Q4HPRN PRN (Reason: moderate pain) Qty: 30 0RF
Patient Comments:
04/12/24: last filled 04/11/24 for 25 tablets over 7 days
metronidazole 500 mg Tablet
500 mg PO TID
ciprofloxacin HCl 500 mg Tablet
500 mg PO BID
acetaminophen [Tylenol Extra Strength] 500 mg Tablet
1,000 mg PO Q6HPRN PRN (Reason: mild pain)
fluoxetine 10 mg Capsule
10 mg PO DAILY
Patient Comments:
04/12/24: Patient would like to hold this medication while in the hospital
fluconazole 100 mg tablet
100 mg PO DAILYPRN PRN (Reason: yeast infection)
alprazolam [Xanax] 0.5 mg Tablet
0.5 mg PO BID
Discontinued
polyethylene glycol 3350 [HealthyLax] 17 gram powder in packet
17 g PO BIDPRN PRN (Reason: constipation)
Discharge Orders:
Discharge Patient (As Directed); Ordered 04/14/24
Ordered By: Delia Gates
Discharge Date and Time
Print Language: [id number]
--- NOTE | 2024-04-14 13:42 | CM ---
Per nurse, patient was discharged and left the hospital; No services needed; family provided transport home
== END 2024-04-14 13:07 | disposition home or self-care (01) | DRG 392 ==
LOC: 2 SOUTH 17:36
PROVIDERS: Clinical Nurse Specialist Family Health; Physician Assistant; ADMITTING PHYSICIAN Hospitalist; ATTENDING PHYSICIAN Student in an Organized Health Care Education/Training Program; CONSULT PHYSICIAN Surgery; EMERGENCY PHYSICIAN Emergency Medicine; FAMILY PHYSICIAN Family Medicine
DX: K59.00 Constipation, unspecified (principal); M32.9 Systemic lupus erythematosus, unspecified; I73.00 Raynaud's syndrome without gangrene; G50.0 Trigeminal neuralgia; K21.9 Gastro-esophageal reflux disease without esophagitis; K44.9 Diaphragmatic hernia without obstruction or gangrene; J45.909 Unspecified asthma, uncomplicated; F41.9 Anxiety disorder, unspecified
CPT/HCPCS: 74174; 80053; 84703; 85014; 85018; 85025; 85610; 85730; 86850; 86900; 86901; 96374; 96375; 96376; 99285; Q9967

== ENCOUNTER 2024-05-13 05:10 | Day surgery (SDC) | payer BC, SELFPAY ==
[2024-05-13] VITALS (8 sets, daily range): BP systolic 15–149; BP diastolic 68–99; BMI 26.0
--- NOTE | 2024-05-13 06:33 | ED.GENMED ---
History of Present Illness
General
Chief Complaint: Abdominal Pain
Source: patient and spouse
Exam Limitations: none
Time Seen by Provider: 05/13/24 06:14
History of Present Illness
History of Present Illness:
49-year-old female complaining of ongoing rectal bleeding/clots along with ongoing lower abdominal pain and vomiting. Symptoms have progressed over about a week. She has been in contact with her colorectal surgeon and was advised to come to the ER
for further evaluation and possible surgery.
Past History
Past History
ED Past Medical History: Asthma, Other (Reynauds, lupus, trigeminal neuralgia, dysautonomia) and Other (IBS, diverticulosis, diverticulitis)
ED Past Surgical History: Gynecological and Urological (Daniela procedure)
Social History
Tobacco: Non-smoker
Alcohol: None
Drug: None
Personal:
Living: with family
Employment: Employed
Review of Systems
Review of Systems
All Other Systems: Not applicable
Constitutional: Reports fever (Subjective)
Respiratory: Reports no symptoms
Cardiac: Reports no symptoms
Phy Exam
Physical Exam
Physical Exam:
GENERAL: Alert and oriented in no apparent distress
EYE: Orbits normal.
NECK: Supple, no significant adenopathy.
ENT: Pharynx without erythema
CARDIAC: Regular rate and rhythm without any obvious murmurs.
LUNGS: Clear breath sounds,normal
ABDOMEN: Soft, functioning colostomy. No blood in the colostomy. Mild diffuse tenderness but greatest in the lower quadrants. No rebound or guarding no mass or hernia patient showed pictures of small clots in the toilet/cough
NEUROLOGICAL: Alert and oriented , grossly non-focal
SKIN: Warm and dry, no rash or lesion, no discoloration, skin intact.
MUSCULOSKELETAL: No edema,no deformity.Good color
PSYCH: Normal and appropriate interaction.
Course
Orders/Labs/Results
Orders:
Orders
05/13/24 06:15
Cardiac Monitoring- Treatment ONCE
IV Insert/Care/Rem.- Treatment PRN
IV Insert/Care/Rem.- Treatment PRN
05/13/24 06:23
Cardiac Monitoring- Treatment ONCE
0.9% Sodium Chloride 1000 ml [Nss] 1,000 ml IV BOLUS
Ondansetron Injectable [Zofran] 4 mg IV NOW STA
Pulse Ox/cont/shift [RESP] Stat
Quantity: 1
05/13/24 06:24
Electrocardiogram (*1) Stat
Reason for Study: Abdominal Pain
EKG- Treatment ONCE
05/13/24 06:30
Complete Blood Count/With Diff Urgent
PTT Urgent
Prothrombin Time Urgent
05/13/24 06:45
Comprehensive Metabolic Panel Routine
Comment: REDRAW
05/13/24 07:36
Type+Screen Urgent
SQMOSK Wristband Number:
05/13/24 07:48
Lorazepam [Ativan] 0.5 mg IV NOW STA
05/13/24 08:03
Bupivacaine Mpf 0.25% [Sensorcaine-Mpf 0.25% Vial] 60 ml .ROUTE .STK-MED ONE
Dexamethasone Pf [Decadron] 10 mg .ROUTE .STK-MED ONE
05/13/24 08:22
COVID-19 Antigen Urgent
Source: Nasal Swab
05/13/24 10:15
Fentanyl Citrate/Pf [Sublimaze] 100 mcg .ROUTE .STK-MED ONE
Glycopyrrolate [Robinul] 0.2 mg .ROUTE .STK-MED ONE
Ketamine 5 ml .ROUTE .STK-MED
Lidocaine 2% Mpf [Xylocaine Mpf 2%] 100 mg .ROUTE .STK-MED ONE
Midazolam HCl [Versed] 2 mg .ROUTE .STK-MED ONE
Propofol [Diprivan] 20 ml .ROUTE .STK-MED
05/13/24 10:28
Fentanyl Citrate/Pf [Sublimaze] 25 mcg IV PACU-Q5MPRN PRN
Fentanyl Citrate/Pf [Sublimaze] 50 mcg IV PACU-Q5MPRN PRN
Meperidine [Demerol] 12.5 mg IV PACU-Q5MPRN PRN
Ondansetron Injectable [Zofran] 4 mg IV PACU-ONCEPRN PRN
Notify MD As Directed
Notify physician if: for SDS patients with known or suspected sleep obstructive sleep apnea, monitor in the
PACU.
Notify MD for any apneic/desaturation episodes
O2 Therapy [RESP] Urgent
Titrate/Wean O2 to maintain O2 sat greater than (%): 92
Special Instructions: -Provide supplemental oxygen to achieve O2 sat of 92% or greater.
-After 15 min, may wean O2 and discontinue if patient is able to maintain O2 sat of 92%
or greater during recovery period.
If patient is a discharge home, without oxygen therapy, notify anestheiologist if
unable to maintain O2 SAT of 92% or greater on room air for MD clearance.
05/13/24 10:30
Normosol (Mult Electrolytes) [Normosol-R/Plasmalyte-A] 1,000 ml IV PER PROTOCOL
05/13/24 10:33
Diphenhydramine [Benadryl] 50 mg .ROUTE .STK-MED ONE
05/13/24 10:40
Metoclopramide [Reglan] 10 mg .ROUTE .STK-MED ONE
05/13/24 10:41
Metoclopramide [Reglan] 10 mg .ROUTE .STK-MED ONE
05/13/24 10:50
Midazolam HCl [Versed] 2 mg .ROUTE .STK-MED ONE
05/13/24 12:00
Acetaminophen [Tylenol] 650 mg PO SDS-Q4HPRN PRN
Ondansetron Injectable [Zofran] 4 mg IV SDS-ONCEPRN PRN
Oxycodone [Roxicodone] 10 mg PO SDS-Q4HPRN PRN
Oxycodone [Roxicodone] 5 mg PO SDS-Q4HPRN PRN
Abnormal Lab Results
05/13/24 05/13/24
06:30 06:45
RBC 3.88 L 10^6/uL
(4.20-5.40)
Hgb 10.5 L g/dL
(12.0-16.0)
Hct 32.3 L %
(37.0-47.0)
MCHC 32.5 L g/dL
(33.0-37.0)
RDW 14.6 H %
(11.5-14.5)
MPV 10.7 H fL
(7.4-10.4)
Immature Gran % 0.6 H %
(0-0.5)
BUN 5 L mg/dl
(7-17)
Creatinine 0.5 L mg/dL
(0.6-1.0)
05/13/24 06:30
05/13/24 06:45
Vital Signs
Initial and Last Documented VS:
Initial Vital Signs
Temp Pulse Resp BP Pulse Ox
98.1 F 93 18 149/99 97
05/13/24 05:12 05/13/24 05:12 05/13/24 05:12 05/13/24 05:12 05/13/24 05:12
Last Documented Vital Signs
Temp Pulse Resp BP Pulse Ox
98.2 F 80 16 115/68 98
05/13/24 12:00 05/13/24 12:00 05/13/24 12:00 05/13/24 12:00 05/13/24 12:00
MDM/Problems Addressed
Differential Diagnosis Includes:
Patient with lower abdominal pain progressive after a recent Chang. In addition rectal bleeding. Labs pain management fluids. Discussed with colorectal surgery. Will only progress to CT if significant lab abnormalities.
*Pulse Oximetry
Patient hypoxic: no
*EKG
Interpreted by ED Provider?: Yes
Interpretation: normal
Comparison EKG: no changes
Heart Rate: 89
Rate: normal
Rhythm: sinus
Kinsey: normal axis
Interval: normal interval and normal QT interval
QRS Pattern: normal QRS
Ischemia: no ischemia
*Critical Care Note
Total Time (30-74mins, 75-104mins- exclusive of procedures): Not Applicable
Data Reviewed
Review of Other/Old Records Reveals: Labs, Records, Radiology Studies, Operative Reports, Testing and Discharge Summary
ED Attending Note
-
Portions of this chart may have been created with voice recognition software.� Occasional wrong word or��sound alike� substitutions may have occurred due to the inherent limitations of voice recognition software.
Discharge Plan
Departure
Patient Disposition: Admit
Date of Disposition: 05/13/24
Time of Disposition: 06:36
Admit to: OR
Presentation/result/management discussed w/ accepting MD/DO: Deng
Discharge Problem:
Lower abdominal pain, Rectal bleeding, Recent Daniela procedure
Prescriptions:
No Action
cetirizine [Zyrtec] 10 mg Tablet
10 mg PO DAILY
pantoprazole [Protonix] 40 mg Tablet,Delayed Release (Dr/Ec)
40 mg PO DAILY
pregabalin [Lyrica] 75 mg Capsule
75 mg PO BID
Patient Comments:
04/12/24: Patient would like to hold this medication while in the hospital
levothyroxine 50 mcg Tablet
50 mcg PO DAILY
hyoscyamine sulfate 0.125 mg tablet, sublingual
0.125 mg PO Q8HPRN PRN (Reason: nausea)
montelukast 10 mg Tablet
10 mg PO HS
ondansetron 4 mg Tablet,Disintegrating
4 mg PO DAILYPRN PRN (Reason: nausea)
Systane (PF) 0.4-0.3 % Dropperette
1 drp BOTH EYES Q6HPRN PRN (Reason: dry eyes)
baclofen 5 mg Tablet
5 mg PO Q8HPRN PRN (Reason: muscle spasm)
Nurtec ODT 75 mg Tablet,Disintegrating
75 mg PO DAILYPRN PRN (Reason: migraines)
lorazepam 0.5 mg Tablet
0.5 mg PO Q8HPRN PRN (Reason: anxiety) Qty: 20 0RF
Patient Comments:
04/12/24: last filled 03/30/24 for 20 tablets over 7 days
metoclopramide HCl 10 mg Tablet
10 mg PO AC Qty: 90 0RF
oxycodone 5 mg Tablet
5 mg PO Q4HPRN PRN (Reason: moderate pain) Qty: 30 0RF
Patient Comments:
04/12/24: last filled 04/11/24 for 25 tablets over 7 days
metronidazole 500 mg Tablet
500 mg PO TID
ciprofloxacin HCl 500 mg Tablet
500 mg PO BID
acetaminophen [Tylenol Extra Strength] 500 mg Tablet
1,000 mg PO Q6HPRN PRN (Reason: mild pain)
fluoxetine 10 mg Capsule
10 mg PO DAILY
Patient Comments:
04/12/24: Patient would like to hold this medication while in the hospital
fluconazole 100 mg tablet
100 mg PO DAILYPRN PRN (Reason: yeast infection)
alprazolam [Xanax] 0.5 mg Tablet
0.5 mg PO BID
polyethylene glycol 3350 [HealthyLax] 17 gram Powder In Packet
17 g PO BID Qty: 60 0RF
Referrals:
Nino Bose MD [Family Provider] -
Interventions
Interventions:
*Risk Screen - Suicide Last Done: 05/13/24 05:12
*General Assessment Last Done: 05/13/24 05:12
*Neglect/Abuse Screening Last Done: 05/13/24 05:12
ED- Fall Risk Assessment Last Done: 05/13/24 05:57
*Nursing Disposition Last Done: 05/13/24 10:30
JD-[id number]-Euruyrxqms Assessment Last Done: 05/13/24 05:57
Discharge Date and Time
Discharge Date/Time: 05/13/24 10:31
Print Language: OCCITAN
[2024-05-13 06:37] LABS: % Basophils 1.1 % (0-2); % Eosinophils 0.4 % (0-6); % Immature Granulocytes 0.6 % (0-0.5); % Lymphocytes 27.9 % (20.5-51.1); % Monocytes 6.6 % (1.7-9.3); % Neutrophils 63.4 % (42.2-75.2); Absolute Basophils 0.1 10^3/uL (0-0.2); Absolute Lymphocytes 1.5 10^3/uL (1.2-3.4); Absolute Monocytes 0.4 10^3/uL (0.1-0.6); Absolute Neutrophils 3.4 10^3/uL (1.4-6.5); Hematocrit 32.3 % (37.0-47.0); Hemoglobin 10.5 g/dL (12.0-16.0); Mean Corp Hgb Conc. 32.5 g/dL (33.0-37.0); Mean Corpuscular Hgb 27.1 pg (27.0-31.0); Mean Corpuscular Volume 83.2 fL (81.0-99.0); Mean Platelet Volume 10.7 fL (7.4-10.4); Nucleated Red Blood Cells % 0 %; Platelet Count 298 10^3/uL (130-400); Red Blood Cell Count 3.88 10^6/uL (4.20-5.40); Red Cell Dist. Width 14.6 % (11.5-14.5); White Blood Cell Count 5.3 10^3/uL (4.8-10.8)
[2024-05-13] MEDS: NSS 1000 IV (06:41)
[2024-05-13] MEDS: ZOFRAN 4 MG IV (06:41)
[2024-05-13 06:46] LABS: INR 1.07; PT 13.7 Sec (11.4-14.6)
[2024-05-13 06:47] LABS: APTT 32.6 Sec (23.4-35.0)
[2024-05-13 07:20] LABS: ALT (SGPT) 22 U/L (0-35); AST (SGOT) 31 U/L (14-36); Albumin 4.4 g/dl (3.5-5.0); Alkaline Phosphatase 66 U/L (38-126); Blood Urea Nitrogen 5 mg/dl (7-17); Calcium 9.6 mg/dl (8.4-10.2); Carbon Dioxide 25 mmol/L (22-30); Chloride 105 mmol/L (98-107); Estimated Creatinine Clearance 101 ml/min; Glucose 99 mg/dl (70-99); Potassium 3.9 mmol/L (3.5-5.1); Sodium 144 mmol/L (135-145); Total Bilirubin 0.6 mg/dl (0.2-1.3); Total Protein 6.8 g/dl (6.3-8.2); eGFR > 60.00
[2024-05-13] MEDS: ATIVAN 0.5 MG IV (08:19)
[2024-05-13 08:55] LABS: COVID-19 Antigen Negative (Negative)
--- NOTE | 2024-05-13 10:20 | HPS.HSE ---
Family Physician
-
Family Physician: Nino Bose
Chief Complaint
-
pelvic pain
History of Present Illness
49-year-old female status post contained perforation requiring a sigmoid colectomy and colostomy by Dr. Vilchis on 03/21/2024, presents to the ER with lower abdominal pelvic pressure and pain with associated clots. The patient had been home and doing
well up until about a week ago where she had increasing rectal and lower pelvic pain. She had a CT scan from an outside hospital, report not available, that reportedly showed constipation. Over the past few hours she has had vomiting. Her last
vomit was at 7:30 AM. She states she has had no appetite and has not eaten in several days. Her stoma is now putting out liquid green and her vomit appeared bile in nature. She has been scheduled 2 days from now for a fecal disimpaction by
Deng. Given her symptoms, we are bringing her to the operating room today for a fecal disimpaction.
Medical History
Past Medical History
Past Medical History: Reports Other
Additional Past Medical History:
(systemic lupus erythematosus, Raynaud's, trigeminal neuralgia, dysautonomia, recently diagnosed POTS disease, GERD, hiatal hernia, esophageal narrowing, degenerative disc disease, IBS, asthma, hemorrhoids, hypothyroidism, constipation,
gastroparesis with chronic nausea)
Past Surgical History: Reports Other
Additional Past Surgical History:
(uterine ablation)
03/21 - 03/30/2024 for stercoral colitis with contained perforation requiring sigmoid colectomy, partial colectomy and Daniela procedure with colostomy by Dr. Vilchis
Social History
Tobacco: Non-smoker
Alcohol: None
Personal:
Family History
Family History: Not pertinent
Allergies / Home Medications
Allergies reflects when Allergies were last updated in [facility].
Home Medications with original date entered in [facility]
Allergy/Medication List:
Rash
Iodinated Contrast Media
Rash
latex
Rash
pollen extracts
SEASONAL-watery eyes, runny nose
Medications:
cetirizine 10 mg tablet (Zyrtec) 10 mg PO DAILY Allergies 03/07/23
pantoprazole 40 mg tablet,delayed release (Protonix) 40 mg PO DAILY Gastrointestinal Issue 03/07/23
pregabalin 75 mg capsule (Lyrica) 75 mg PO BID Pain 03/07/23
baclofen 5 mg tablet 5 mg PO Q8HPRN PRN muscle spasm 03/21/24
hyoscyamine sulfate 0.125 mg sublingual tablet 0.125 mg PO Q8HPRN PRN nausea 03/21/24
levothyroxine 50 mcg tablet 50 mcg PO DAILY Thyroid 03/21/24
montelukast 10 mg tablet 10 mg PO HS Allergies 03/21/24
ondansetron 4 mg disintegrating tablet 4 mg PO DAILYPRN PRN nausea 03/21/24
peg 400-propylene glycol (PF) 0.4 %-0.3 % eye drops in a dropperette (Systane (PF)) 1 drp BOTH EYES Q6HPRN PRN dry eyes 03/21/24
rimegepant 75 mg disintegrating tablet (Nurtec ODT) 75 mg PO DAILYPRN PRN migraines 03/21/24
lorazepam 0.5 mg tablet 0.5 mg PO Q8HPRN PRN anxiety #20 tabs 03/30/24
metoclopramide HCl 10 mg tablet 10 mg PO AC #90 tabs 03/30/24
oxycodone 5 mg tablet 5 mg PO Q4HPRN PRN moderate pain #30 tabs 03/30/24
acetaminophen 500 mg tablet (Tylenol Extra Strength) 1,000 mg PO Q6HPRN PRN mild pain 04/12/24
alprazolam 0.5 mg tablet (Xanax) 0.5 mg PO BID 04/12/24
ciprofloxacin HCl 500 mg tablet 500 mg PO BID 04/12/24
fluconazole 100 mg tablet 100 mg PO DAILYPRN PRN yeast infection 04/12/24
fluoxetine 10 mg capsule 10 mg PO DAILY 04/12/24
metronidazole 500 mg tablet 500 mg PO TID 04/12/24
polyethylene glycol 3350 17 gram oral powder packet (HealthyLax) 17 g PO BIDPRN PRN constipation 04/12/24
Review of Systems
-
History Source: Patient
A 12 point ROS was completed and negative except as noted: Yes
Abdomen/GI: Reports Abdominal Pain, Nausea, Vomiting and Diarrhea
Physical Exam
Vital Signs
Vital Signs
Temp Pulse Resp BP Pulse Ox
98.1 F 65 17 134/88 97
05/13/24 05:12 05/13/24 08:15 05/13/24 08:15 05/13/24 08:00 05/13/24 05:12
Physical Exam
General: Well Developed, Well Nourished and No Apparent Distress
GI: Soft, Non Tender and Non Distended
Skin: Warm and Dry
Neuro: AO x 3
Laboratory Results
-
05/13/24 06:30
05/13/24 06:45
Laboratory Results
PT 13.7 Sec (11.4-14.6) 05/13/24 06:30
INR 1.07 05/13/24 06:30
APTT 32.6 Sec (23.4-35.0) 05/13/24 06:30
Total Bilirubin 0.6 mg/dl (0.2-1.3) 05/13/24 06:45
AST 31 U/L (14-36) 05/13/24 06:45
ALT 22 U/L (0-35) 05/13/24 06:45
Alkaline Phosphatase 66 U/L (38-126) 05/13/24 06:45
Data Reviewed
-
Lab Data: Labs Reviewed by me, Discussed with Physician and Discussed with Patient
Old Records: Reviewed
Impression/Plan
-
IMPRESSION: 49-year-old female with a recent history of sigmoidectomy with colostomy creation, with recent CT from an outside hospital showing constipation, presents with abdominal and lower pelvic pain along with nausea and vomiting.
PLAN:
Given her rectal and pelvic pain and CAT scan showing constipation and stool in the rectum, will take to the OR today for fecal disimpaction. Discussed plan with patient and at bedside who are agreeable. This will be done as soon as
possible. Remain NPO.
--- NOTE | 2024-05-13 11:21 | W.IMMPOSTOP ---
Surgical Immed Post Op Note
-
Primary Surgeon: Marcus Vilchis MD
Pre-op Diagnosis: Rectal bleeding; rule out stercoral colitis
Post-op Diagnosis: Mild inflammation of the rectal mucosa 6cm from the anorectal ring
Procedure Performed: Rectal EUA, rigid and flexible sigmoidoscopy
Anesthesia Type: GET
Specimen / Cultures: None
Estimated Blood Loss: 1cc
Complications: None
Operative Findings: Old blood in the distal rectum
Very mild inflammation of mid rectum, ? diversion
Patient's and mother updated.
== END 2024-05-13 10:31 | disposition still patient (30) ==
LOC: SDS 05:10
PROVIDERS: ATTENDING PHYSICIAN Emergency Medicine; FAMILY PHYSICIAN Family Medicine
DX: K62.89 Other specified diseases of anus and rectum (principal); K62.5 Hemorrhage of anus and rectum
CPT/HCPCS: 45330; 80053; 85025; 85610; 85730; 86850; 86900; 86901; 87811; 93005

== ENCOUNTER 2024-06-18 16:46 | Outpatient (RCR) | payer BC, SELFPAY | END 2024-06-18 23:59 | disposition home or self-care (01) | LOC: RPT 16:46 | PROVIDERS: ATTENDING PHYSICIAN Obstetrics & Gynecology Female Pelvic Medicine and Reconstructive Surgery; FAMILY PHYSICIAN Family Medicine | DX: M79.18 Myalgia, other site (principal); M62.89 Other specified disorders of muscle; R10.2 Pelvic and perineal pain; Z73.6 Limitation of activities due to disability; M62.838 Other muscle spasm; R27.8 Other lack of coordination; M32.9 Systemic lupus erythematosus, unspecified | CPT/HCPCS: 97163; 97530 ==

== ENCOUNTER → 2024-07-02 16:18 | Outpatient (REF) | payer BC, SELFPAY ==
[2024-07-02 14:35] LABS: % Basophils 1.1 % (0-2); % Eosinophils 0.2 % (0-6); % Immature Granulocytes 0.2 % (0-0.5); % Lymphocytes 32.4 % (20.5-51.1); % Monocytes 10.3 % (1.7-9.3); % Neutrophils 55.8 % (42.2-75.2); Absolute Basophils 0.1 10^3/uL (0-0.2); Absolute Lymphocytes 1.4 10^3/uL (1.2-3.4); Absolute Monocytes 0.5 10^3/uL (0.1-0.6); Absolute Neutrophils 2.4 10^3/uL (1.4-6.5); Hematocrit 32.5 % (37.0-47.0); Hemoglobin 10.1 g/dL (12.0-16.0); Mean Corp Hgb Conc. 31.1 g/dL (33.0-37.0); Mean Corpuscular Hgb 26.9 pg (27.0-31.0); Mean Corpuscular Volume 86.4 fL (81.0-99.0); Mean Platelet Volume 10.7 fL (7.4-10.4); Nucleated Red Blood Cells % 0 %; Platelet Count 285 10^3/uL (130-400); Red Blood Cell Count 3.76 10^6/uL (4.20-5.40); Red Cell Dist. Width 14.6 % (11.5-14.5); White Blood Cell Count 4.4 10^3/uL (4.8-10.8)
== END ==
LOC: OIDL 16:18
PROVIDERS: ATTENDING PHYSICIAN Internal Medicine Hematology & Oncology
DX: D50.0 Iron deficiency anemia secondary to blood loss (chronic) (principal)
CPT/HCPCS: 85025

== ENCOUNTER → 2024-07-10 16:25 | Outpatient (REF) | payer BC, SELFPAY ==
[2024-07-10 15:13] LABS: % Basophils 0.7 % (0-2); % Eosinophils 1.3 % (0-6); % Lymphocytes 28.6 % (20.5-51.1); % Monocytes 6.1 % (1.7-9.3); % Neutrophils 63.3 % (42.2-75.2); Absolute Eosinophils 0.1 10^3/uL (0-0.7); Absolute Lymphocytes 1.6 10^3/uL (1.2-3.4); Absolute Monocytes 0.3 10^3/uL (0.1-0.6); Absolute Neutrophils 3.6 10^3/uL (1.4-6.5); Hemoglobin 10.9 g/dL (12.0-16.0); Mean Corp Hgb Conc. 31.1 g/dL (33.0-37.0); Mean Corpuscular Hgb 26.5 pg (27.0-31.0); Mean Platelet Volume 10.4 fL (7.4-10.4); Platelet Count 351 10^3/uL (130-400); Red Blood Cell Count 4.12 10^6/uL (4.20-5.40); Red Cell Dist. Width 15.3 % (11.5-14.5); White Blood Cell Count 5.6 10^3/uL (4.8-10.8)
== END ==
LOC: OIDL 16:25
PROVIDERS: ATTENDING PHYSICIAN Nurse Practitioner Acute Care
DX: D50.0 Iron deficiency anemia secondary to blood loss (chronic) (principal)
CPT/HCPCS: 85025

== ENCOUNTER → 2024-07-17 15:56 | Outpatient (REF) | payer BC, SELFPAY ==
[2024-07-17 14:40] LABS: % Basophils 0.7 % (0-2); % Eosinophils 1.4 % (0-6); % Lymphocytes 32.3 % (20.5-51.1); % Monocytes 6.8 % (1.7-9.3); % Neutrophils 58.8 % (42.2-75.2); Absolute Eosinophils 0.1 10^3/uL (0-0.7); Absolute Lymphocytes 1.9 10^3/uL (1.2-3.4); Absolute Monocytes 0.4 10^3/uL (0.1-0.6); Absolute Neutrophils 3.4 10^3/uL (1.4-6.5); Hematocrit 35.8 % (37.0-47.0); Hemoglobin 11.2 g/dL (12.0-16.0); Mean Corp Hgb Conc. 31.3 g/dL (33.0-37.0); Mean Corpuscular Hgb 26.9 pg (27.0-31.0); Mean Corpuscular Volume 85.9 fL (81.0-99.0); Mean Platelet Volume 10.5 fL (7.4-10.4); Platelet Count 283 10^3/uL (130-400); Red Blood Cell Count 4.17 10^6/uL (4.20-5.40); Red Cell Dist. Width 15.6 % (11.5-14.5); White Blood Cell Count 5.8 10^3/uL (4.8-10.8)
== END ==
LOC: OIDL 15:56
PROVIDERS: ATTENDING PHYSICIAN Nurse Practitioner Acute Care
DX: D50.0 Iron deficiency anemia secondary to blood loss (chronic) (principal)
CPT/HCPCS: 85025

== ENCOUNTER 2024-07-18 17:05 | Emergency (ER) | payer BC, SELFPAY ==
[2024-07-18 17:15] VITALS: BP 133/83
--- NOTE | 2024-07-18 17:16 | ED.GENMED ---
ED Provider Triage
<Tatiana Levy PA-C - Last Filed: 07/18/24 17:29>
-
Patient seen by provider in Triage?: Seen in Triage
49 y/o F
h/o POTS
orthostatic hypotension
low bps readings at home and her doctor started midodrine
she feels 'off' since her cruz procedure may
lightheaded, hving low bp readings 90s this morning
but then around 3:30 she started feeling 'really off' more than usual, she also has tingling in both hands
her mom thinks it really started yhester
pt says she was a ltitle forgetful
she has been in contact with her front desk manager at [facility] regarding her POTS and her BPs
thinks it may be her thyroid
A medical screening examination has been initiated by a qualified medical provider. Based on the assessment performed at this time, it has been determined that an emergent medical condition may exist and the patient has been informed that further
medical evaluation and possible additional diagnostic testing may be needed.
HPI: This is a medical evaluation conducted in person to initiate diagnostic evaluation and provide initial therapeutics. Please see further documentation by the treating clinician.
GENERAL: Alert , in no apparent distress
ENT: No visible abnormalities
LUNGS: No acute respiratory distress
NEUROLOGICAL: Alert and oriented x 4, cn intact, 5/5 strength, romberg neg, no facal asymmetry
SKIN: Skin intact. No visible changes.
MUSCULOSKELETAL: Moving extremities normally
PSYCH: Normal and appropriate interaction.
pt has the feeling she is 'off' but she has no specific neuro complaints or deficits
her exam is unremarkable
NIH 0
liliana order labs, head ct
suspect this is more metabolic/electrolyte/ pots than neuro
History of Present Illness
<Tatiana Levy PA-C - Last Filed: 07/18/24 17:29>
General
Chief Complaint: Blood Pressure Problem
Time Seen by Provider: 07/18/24 20:32
<Marcus Song PA-C - Last Filed: 07/18/24 21:45>
General
Source: patient
Exam Limitations: none
History of Present Illness
History of Present Illness:
49-year-old female presents with complaints of feeling off. She has been having issues with her blood pressure. She was recently started on midodrine and has been taking 2 and half milligrams daily. She was actually supposed to increase it to 5
mg in the morning. She did not do that today because she was feeling off. She has a history of the Cruz's procedure. She has a history of iron deficiency and has been receiving iron infusions. She also has hypothyroidism and is taking thyroid
medication for this. She denies chest pain. She felt like she was in a brain fog with having trouble connecting and felt tingling to both arms and legs. Since waiting in the waiting room she actually feels much improved. No fever. No vomiting.
Past History
<Tatiana Levy PA-C - Last Filed: 07/18/24 17:29>
Past History
ED Past Medical History: Asthma, Other (Reynauds, lupus, trigeminal neuralgia, dysautonomia) and Other (IBS, diverticulosis, diverticulitis)
ED Past Surgical History: Gynecological and Urological (Daniela procedure)
Social History
Tobacco: Non-smoker
Alcohol: None
Drug: None
Personal:
Living: with family
Employment: Employed
Phy Exam
<Marcus Song PA-C - Last Filed: 07/18/24 21:45>
Physical Exam
Physical Exam:
General: Well-appearing nontoxic female no acute respiratory distress
HEENT: Normocephalic atraumatic pupils equal round reactive to light
Heart: Regular rate and rhythm no murmur
Lungs: Clear no wheeze
Neurologic exam: Alert and oriented normal gait finger-nose intact [id number] intact good strength to the upper and lower extremities face is symmetric conversing appropriately no aphasia or dysarthria
Extremities: No cyanosis
Course
<Tatiana Levy PA-C - Last Filed: 07/18/24 17:29>
Orders/Labs/Results
Orders:
Orders
07/18/24 17:22
Urinalysis Reflex To Culture Urgent
07/18/24 17:23
Electrocardiogram (*1) Urgent
Reason for Study: Vertigo / Dizzy
EKG- Treatment ONCE
07/18/24 17:24
CT Head W/o Iv Contrast Urgent
Comment:
Reason For Exam: feels off, forgetful, lightheaded
07/18/24 17:49
COVID-19 Antigen Urgent
Source: Nasal Swab
Complete Blood Count/With Diff Urgent
Comprehensive Metabolic Panel Urgent
Free T4 Urgent
Lipase Urgent
TSH Reflex To Free T4 Urgent
Influenza A+B Rapid Molecular Urgent
PORTER Source: Nasal Swab
Specimen Description:
07/18/24 21:00
Orthostatic VS- Treatment ONCE
Abnormal Lab Results
07/18/24
17:49
RBC 4.16 L 10^6/uL
(4.20-5.40)
Hgb 11.0 L g/dL
(12.0-16.0)
Hct 36.3 L %
(37.0-47.0)
MCH 26.4 L pg
(27.0-31.0)
MCHC 30.3 L g/dL
(33.0-37.0)
RDW 15.9 H %
(11.5-14.5)
Glucose 104 H mg/dl
(70-99)
TSH (Reflex) < 0.02 L uIU/ml
(0.47-4.68)
07/18/24 17:49
07/18/24 17:49
Vital Signs
Initial and Last Documented VS:
Initial Vital Signs
Temp Pulse Resp BP Pulse Ox
98.2 F 113 16 133/83 100
07/18/24 17:15 07/18/24 17:15 07/18/24 17:15 07/18/24 17:15 07/18/24 17:15
Last Documented Vital Signs
Temp Pulse Resp BP Pulse Ox
98.2 F 78 18 126/96 96
07/18/24 17:15 07/18/24 21:14 07/18/24 21:14 07/18/24 21:14 07/18/24 21:15
<Marcus Song PA-C - Last Filed: 07/18/24 21:45>
Orders/Labs/Results
Orders:
Orders
07/18/24 17:22
Urinalysis Reflex To Culture Urgent
07/18/24 17:23
Electrocardiogram (*1) Urgent
Reason for Study: Vertigo / Dizzy
EKG- Treatment ONCE
07/18/24 17:24
CT Head W/o Iv Contrast Urgent
Comment:
Reason For Exam: feels off, forgetful, lightheaded
07/18/24 17:49
COVID-19 Antigen Urgent
Source: Nasal Swab
Complete Blood Count/With Diff Urgent
Comprehensive Metabolic Panel Urgent
Free T4 Urgent
Lipase Urgent
TSH Reflex To Free T4 Urgent
Influenza A+B Rapid Molecular Urgent
PORTER Source: Nasal Swab
Specimen Description:
07/18/24 21:00
Orthostatic VS- Treatment ONCE
Abnormal Lab Results
07/18/24
17:49
RBC 4.16 L 10^6/uL
(4.20-5.40)
Hgb 11.0 L g/dL
(12.0-16.0)
Hct 36.3 L %
(37.0-47.0)
MCH 26.4 L pg
(27.0-31.0)
MCHC 30.3 L g/dL
(33.0-37.0)
RDW 15.9 H %
(11.5-14.5)
Glucose 104 H mg/dl
(70-99)
TSH (Reflex) < 0.02 L uIU/ml
(0.47-4.68)
07/18/24 17:49
07/18/24 17:49
Vital Signs
Initial and Last Documented VS:
Initial Vital Signs
Temp Pulse Resp BP Pulse Ox
98.2 F 113 16 133/83 100
07/18/24 17:15 07/18/24 17:15 07/18/24 17:15 07/18/24 17:15 07/18/24 17:15
Last Documented Vital Signs
Temp Pulse Resp BP Pulse Ox
98.2 F 78 18 126/96 96
07/18/24 17:15 07/18/24 21:14 07/18/24 21:14 07/18/24 21:14 07/18/24 21:15
<Marcus Song PA-C - Last Filed: 07/18/24 21:45>
MDM/Problems Addressed
Differential Diagnosis Includes:
Patient with generalized unwell sensation. Blood pressure 130s over 80s friend. Since waiting in the waiting room symptoms have resolved. CT of the head was performed which was negative labs reviewed with hemoglobin of 11. Free T4 is normal.
Will check orthostatic vital sign
<Marcus Song PA-C - Last Filed: 07/18/24 21:45>
*Critical Care Note
Total Time (30-74mins, 75-104mins- exclusive of procedures): Not Applicable
<Marcus Song PA-C - Last Filed: 07/18/24 21:45>
Update Note
Update Note:
Orthostatic vital signs within normal limits EKG shows sinus rhythm with a rate of 69 no ischemic changes. All labs reviewed otherwise COVID and flu are negative. Patient feeling much better. Recommend follow-up with her front desk manager. Stable for
discharge
ED Attending Note
<Tatiana Levy PA-C - Last Filed: 07/18/24 17:29>
-
Portions of this chart may have been created with voice recognition software.� Occasional wrong word or��sound alike� substitutions may have occurred due to the inherent limitations of voice recognition software.
Discharge Plan
Departure
Patient Disposition: Home (Routine Discharge)
Date of Disposition: 07/18/24
Time of Disposition: 21:45
Patient with high blood pressure during this ER visit?: No
Discharge Problem:
Weakness
Instructions: Weakness
Prescriptions:
No Action
cetirizine [Zyrtec] 10 mg Tablet
10 mg PO DAILY
pantoprazole [Protonix] 40 mg Tablet,Delayed Release (Dr/Ec)
40 mg PO DAILY
pregabalin [Lyrica] 75 mg Capsule
75 mg PO BID
Patient Comments:
04/12/24: Patient would like to hold this medication while in the hospital
levothyroxine 50 mcg Tablet
50 mcg PO DAILY
hyoscyamine sulfate 0.125 mg tablet, sublingual
0.125 mg PO Q8HPRN PRN (Reason: nausea)
montelukast 10 mg Tablet
10 mg PO HS
ondansetron 4 mg Tablet,Disintegrating
4 mg PO DAILYPRN PRN (Reason: nausea)
Systane (PF) 0.4-0.3 % Dropperette
1 drp BOTH EYES Q6HPRN PRN (Reason: dry eyes)
baclofen 5 mg Tablet
5 mg PO Q8HPRN PRN (Reason: muscle spasm)
Nurtec ODT 75 mg Tablet,Disintegrating
75 mg PO DAILYPRN PRN (Reason: migraines)
lorazepam 0.5 mg Tablet
0.5 mg PO Q8HPRN PRN (Reason: anxiety) Qty: 20 0RF
Patient Comments:
04/12/24: last filled 03/30/24 for 20 tablets over 7 days
metoclopramide HCl 10 mg Tablet
10 mg PO AC Qty: 90 0RF
oxycodone 5 mg Tablet
5 mg PO Q4HPRN PRN (Reason: moderate pain) Qty: 30 0RF
Patient Comments:
04/12/24: last filled 04/11/24 for 25 tablets over 7 days
metronidazole 500 mg Tablet
500 mg PO TID
ciprofloxacin HCl 500 mg Tablet
500 mg PO BID
acetaminophen [Tylenol Extra Strength] 500 mg Tablet
1,000 mg PO Q6HPRN PRN (Reason: mild pain)
fluoxetine 10 mg Capsule
10 mg PO DAILY
Patient Comments:
04/12/24: Patient would like to hold this medication while in the hospital
fluconazole 100 mg tablet
100 mg PO DAILYPRN PRN (Reason: yeast infection)
alprazolam [Xanax] 0.5 mg Tablet
0.5 mg PO BID
polyethylene glycol 3350 [HealthyLax] 17 gram Powder In Packet
17 g PO BID Qty: 60 0RF
Referrals:
Nino Bose MD [Family Provider] -
Activity Restrictions/Additional Instructions:
Continue current medications. Please follow-up with your front desk manager. Return if needed otherwise
Interventions
Interventions:
*Risk Screen - Suicide Last Done: 07/18/24 21:22
*Neglect/Abuse Screening Last Done: 07/18/24 21:22
ED- Cardiac Assessment Last Done: 07/18/24 21:22
ED- Neurological Assessment Last Done: 07/18/24 21:22
ED- Pulmonary Assessment Last Done: 07/18/24 21:22
Discharge Date and Time
Print Language: [id number]
[2024-07-18 18:04] LABS: % Basophils 0.8 % (0-2); % Eosinophils 1.4 % (0-6); % Lymphocytes 29.1 % (20.5-51.1); % Monocytes 8.5 % (1.7-9.3); % Neutrophils 60.2 % (42.2-75.2); Absolute Eosinophils 0.1 10^3/uL (0-0.7); Absolute Lymphocytes 1.5 10^3/uL (1.2-3.4); Absolute Monocytes 0.4 10^3/uL (0.1-0.6); Hematocrit 36.3 % (37.0-47.0); Mean Corp Hgb Conc. 30.3 g/dL (33.0-37.0); Mean Corpuscular Hgb 26.4 pg (27.0-31.0); Mean Corpuscular Volume 87.3 fL (81.0-99.0); Mean Platelet Volume 10.2 fL (7.4-10.4); Nucleated Red Blood Cells % 0 %; Platelet Count 262 10^3/uL (130-400); Red Blood Cell Count 4.16 10^6/uL (4.20-5.40); Red Cell Dist. Width 15.9 % (11.5-14.5); White Blood Cell Count 5.1 10^3/uL (4.8-10.8)
[2024-07-18 18:10] LABS: ALT (SGPT) 23 U/L (0-35); AST (SGOT) 25 U/L (14-36); Albumin 4.4 g/dl (3.5-5.0); Alkaline Phosphatase 71 U/L (38-126); Blood Urea Nitrogen 9 mg/dl (7-17); Calcium 9.6 mg/dl (8.4-10.2); Carbon Dioxide 29 mmol/L (22-30); Chloride 103 mmol/L (98-107); Glucose 104 mg/dl (70-99); Lipase 99 U/L (23-300); Potassium 4.9 mmol/L (3.5-5.1); Sodium 141 mmol/L (135-145); Total Bilirubin 0.2 mg/dl (0.2-1.3); Total Protein 6.7 g/dl (6.3-8.2); eGFR > 60.00
[2024-07-18 18:40] LABS: TSH Reflex To Free T4 < 0.02 uIU/ml (0.47-4.68)
[2024-07-18 18:41] LABS: COVID-19 Antigen Negative (Negative)
[2024-07-18 19:10] LABS: Free T4 1.41 ng/dl (0.78-2.19)
[2024-07-18 21:00] VITALS: BP 120/86; BP 121/76; BP 126/96; PULSE 72; PULSE 85
[2024-07-18 21:11] VITALS: BP 121/76
[2024-07-18 21:13] VITALS: BP 126/86
[2024-07-18 21:14] VITALS: BP 126/96
== END 2024-07-18 21:52 | disposition home or self-care (01) ==
LOC: EMR 17:05
PROVIDERS: Physician Assistant; EMERGENCY PHYSICIAN Emergency Medicine; FAMILY PHYSICIAN Family Medicine
DX: R53.1 Weakness (principal); E03.9 Hypothyroidism, unspecified; J45.909 Unspecified asthma, uncomplicated; Z79.899 Other long term (current) drug therapy
CPT/HCPCS: 99284; 70450; 80053; 83690; 84439; 84443; 85025; 87502; 87811; 93005

== ENCOUNTER 2024-07-25 12:37 | Outpatient (RCR) | payer BC, SELFPAY | END 2024-07-25 23:59 | disposition home or self-care (01) | LOC: RPT 12:37 | PROVIDERS: ATTENDING PHYSICIAN Obstetrics & Gynecology Female Pelvic Medicine and Reconstructive Surgery; FAMILY PHYSICIAN Family Medicine | DX: M79.18 Myalgia, other site (principal); M62.89 Other specified disorders of muscle; R10.2 Pelvic and perineal pain; Z73.6 Limitation of activities due to disability; M62.838 Other muscle spasm; R27.8 Other lack of coordination; M32.9 Systemic lupus erythematosus, unspecified; K58.1 Irritable bowel syndrome with constipation | CPT/HCPCS: 97530 ==

== ENCOUNTER → 2024-07-26 15:44 | Outpatient (REF) | payer BC, SELFPAY ==
[2024-07-26 11:55] LABS: % Basophils 0.7 % (0-2); % Eosinophils 2.9 % (0-6); % Lymphocytes 35.7 % (20.5-51.1); % Monocytes 7.5 % (1.7-9.3); % Neutrophils 53.2 % (42.2-75.2); Absolute Eosinophils 0.1 10^3/uL (0-0.7); Absolute Lymphocytes 1.5 10^3/uL (1.2-3.4); Absolute Monocytes 0.3 10^3/uL (0.1-0.6); Absolute Neutrophils 2.2 10^3/uL (1.4-6.5); Hematocrit 38.6 % (37.0-47.0); Hemoglobin 11.9 g/dL (12.0-16.0); Mean Corp Hgb Conc. 30.8 g/dL (33.0-37.0); Mean Corpuscular Hgb 26.9 pg (27.0-31.0); Mean Corpuscular Volume 87.3 fL (81.0-99.0); Mean Platelet Volume 9.9 fL (7.4-10.4); Platelet Count 274 10^3/uL (130-400); Red Blood Cell Count 4.42 10^6/uL (4.20-5.40); Red Cell Dist. Width 16.3 % (11.5-14.5); White Blood Cell Count 4.2 10^3/uL (4.8-10.8)
== END ==
LOC: OIDL 15:44
PROVIDERS: ATTENDING PHYSICIAN Nurse Practitioner Acute Care
DX: D50.0 Iron deficiency anemia secondary to blood loss (chronic) (principal)
CPT/HCPCS: 85025

== ENCOUNTER → 2024-08-10 14:38 | Outpatient (REF) | payer BC, SELFPAY ==
[2024-08-10 13:33] LABS: % Basophils 0.6 % (0-2); % Eosinophils 2.4 % (0-6); % Monocytes 6.3 % (1.7-9.3); % Neutrophils 56.7 % (42.2-75.2); Absolute Eosinophils 0.2 10^3/uL (0-0.7); Absolute Lymphocytes 2.2 10^3/uL (1.2-3.4); Absolute Monocytes 0.4 10^3/uL (0.1-0.6); Absolute Neutrophils 3.6 10^3/uL (1.4-6.5); Hematocrit 40.4 % (37.0-47.0); Hemoglobin 12.7 g/dL (12.0-16.0); Mean Corp Hgb Conc. 31.4 g/dL (33.0-37.0); Mean Corpuscular Hgb 27.4 pg (27.0-31.0); Mean Corpuscular Volume 87.3 fL (81.0-99.0); Mean Platelet Volume 9.4 fL (7.4-10.4); Platelet Count 311 10^3/uL (130-400); Red Blood Cell Count 4.63 10^6/uL (4.20-5.40); Red Cell Dist. Width 16.7 % (11.5-14.5); White Blood Cell Count 6.4 10^3/uL (4.8-10.8)
== END ==
LOC: OIDL 14:38
PROVIDERS: ATTENDING PHYSICIAN Nurse Practitioner Acute Care
DX: D50.0 Iron deficiency anemia secondary to blood loss (chronic) (principal)
CPT/HCPCS: 85025

== ENCOUNTER → 2024-08-15 18:46 | Outpatient (REF) | payer BC, SELFPAY | LOC: MRI 18:46 | PROVIDERS: ATTENDING PHYSICIAN Surgery; FAMILY PHYSICIAN Family Medicine | DX: R10.2 Pelvic and perineal pain (principal) | CPT/HCPCS: 72197; A9575 ==

== ENCOUNTER 2025-04-24 14:35 | Emergency (ER) | payer OTHER, SELFPAY ==
[2025-04-24] VITALS (8 sets, daily range): BP systolic 118–149; BP diastolic 78–102; BMI 22.9
[2025-04-24 14:53] LABS: Hematocrit 40.5 % (37.0-47.0); Hemoglobin 13.6 g/dL (12.0-16.0); Mean Corp Hgb Conc. 33.6 g/dL (33.0-37.0); Mean Corpuscular Volume 91.6 fL (81.0-99.0); Nucleated Red Blood Cells % 0 %; Platelet Count 286 10^3/uL (130-400); Red Cell Dist. Width 13.0 % (11.5-14.5)
[2025-04-24] MEDS: NSS 500 IV ×2 (15:09→19:45)
[2025-04-24] MEDS: DILAUDID 1 MG IV (15:11)
[2025-04-24] MEDS: ZOFRAN 4 MG IV (15:14)
[2025-04-24 15:24] LABS: ALT (SGPT) 17 U/L (0-35); AST (SGOT) 26 U/L (14-36); Albumin 5.4 g/dl (3.5-5.0); Alkaline Phosphatase 71 U/L (38-126); Blood Urea Nitrogen 4 mg/dl (7-17); Calcium 10.6 mg/dl (8.4-10.2); Carbon Dioxide 26 mmol/L (22-30); Chloride 105 mmol/L (98-107); Estimated Creatinine Clearance 100 ml/min; Glucose 101 mg/dl (70-99); Lipase 375 U/L (23-300); Potassium 3.8 mmol/L (3.5-5.1); Sodium 142 mmol/L (135-145); Total Protein 8.0 g/dl (6.3-8.2); eGFR > 60.00
[2025-04-24] MEDS: BENADRYL 50 MG IV (15:24)
[2025-04-24] MEDS: SOLU-CORTEF 200 MG IV (15:34)
--- NOTE | 2025-04-24 15:51 | ED.GENMED ---
History of Present Illness
<CAMELIA Hyatt Jr. Last Filed: 04/26/25 00:12>
General
Chief Complaint: Abdominal Pain
Source: patient and spouse
Exam Limitations: none
Time Seen by Provider: 04/24/25 14:58
Nursing documentation reviewed up to this point in time: agreed with
History of Present Illness
History of Present Illness:
The patient is a 50-year-old female past medical history of significant diverticulosis, lupus multiple bowel surgeries and a total colectomy that was performed 1 month ago at [facility] by Dr. Jorge Cote. Presenting to the emergency department today
claiming that after a bowel movement she had a very sharp severe pain she claims that it was on intolerable and was lasting for multiple minutes. She contacted EMS to bring her in. The pain was ongoing in transit. She otherwise was having vague
abdominal pain and bloating since the surgery 1 month ago. Denies any fevers denies any vomiting currently but does have nausea.
Past History
<Dariel Prescott Jr., PA-C - Last Filed: 04/26/25 00:12>
Past History
ED Past Medical History: Asthma, Other (Reynauds, lupus, trigeminal neuralgia, dysautonomia) and Other (IBS, diverticulosis, diverticulitis)
ED Past Surgical History: Gynecological and Urological (Daniela procedure)
Social History
Tobacco: Non-smoker
Alcohol: None
Drug: None
Personal:
Living: with family
Employment: Employed
Review of Systems
<CAMELIA Hyatt Jr. Last Filed: 04/26/25 00:12>
Review of Systems
Allergies reviewed?: Yes
All Other Systems: ROS reviewed and negative except as documented in HPI and ROS
Phy Exam
<CAMELIA Hyatt Jr. Last Filed: 04/26/25 00:12>
Physical Exam
Physical Exam:
GENERAL: Alert , in no apparent distress
EYE: pupils equal and reactive
NECK: Supple, no significant adenopathy.
ENT: o/p clr, mmm.
CARDIAC: Regular rate and rhythm .
LUNGS: Clear breath sounds bilaterally, no acute respiratory distress, no wheezes/rales/rhonchi
ABDOMEN: Surgical incision to the left lower quadrant of the abdomen appears to be healing well no redness or warmth or drainage. Some vague diffuse abdominal pain maximal to the right lower quadrant.
NEUROLOGICAL: Alert and oriented, no focal neuro deficits
SKIN: Warm and dry, skin intact.
MUSCULOSKELETAL: No edema, well perfused.
PSYCH: Normal and appropriate interaction.
Course
<Dariel Prescott Jr., PA-C - Last Filed: 04/26/25 00:12>
Orders/Labs/Results
Orders:
Orders
04/24/25 14:43
Complete Blood Count/With Diff Urgent
Comprehensive Metabolic Panel Urgent
HCG, Serum Qualitative Screen Urgent
Comment: ADD ON
Lactic Acid Urgent
Lipase Urgent
04/24/25 15:04
CT Abd/Pel (IV only)-DH only Urgent
Comment:
Reason For Exam: right sided abd pain, recent colectomy, no PO
Diphenhydramine [Benadryl] 50 mg IV NOW STA
HYDROmorphone [Dilaudid] 1 mg IV NOW STA
Hydrocortisone Sod Succinate [Solu-Cortef] 200 mg IV NOW STA
Ondansetron Injectable [Zofran] 4 mg IV NOW STA
Test Result ONCE
04/24/25 15:08
0.9% Sodium Chloride 500 ml [Nss] 500 ml IV BOLUS
04/24/25 15:33
Add On- LAB Urgent
Comments:: SERUM HCG QUALITATIVE
Tests Added?: SERUM HCG QUALITATIVE
04/24/25 18:34
US Abdomen Complete/Upper Urgent
Comment: per surgery
Reason For Exam: RUQ pain
04/24/25 18:49
0.9% Sodium Chloride 500 ml [Nss] 500 ml IV BOLUS
04/24/25 18:51
HCG, Urine Qualitative Screen Urgent
Date Specimen was Collected: 04/24/25
Time Specimen was Collected: 18:48
Comment: ADDON
Urinalysis Reflex To Culture Urgent
Date Specimen was Collected: 04/24/25
Time Specimen was Collected: 18:48
Test Result ONCE
04/24/25 18:53
Add On- LAB Urgent
Comments:: hcg urine qualitative
Tests Added?: hcg urine qualitative
Abnormal Lab Results
04/24/25 04/24/25
14:43 18:51
BUN 4 L mg/dl
(7-17)
Creatinine 0.5 L mg/dL
(0.6-1.0)
Glucose 101 H mg/dl
(70-99)
Lactic Acid 2.1 H mmol/L
(0.7-2.0)
Calcium 10.6 H mg/dl
(8.4-10.2)
Albumin 5.4 H g/dl
(3.5-5.0)
Lipase 375 H U/L
(23-300)
Urine Ketones 1+ A
(Negative)
04/24/25 14:43
04/24/25 14:43
Vital Signs
Initial and Last Documented VS:
Initial Vital Signs
Temp Pulse Resp BP Pulse Ox
98.2 F 86 18 149/82 99
04/24/25 14:36 04/24/25 14:36 04/24/25 14:36 04/24/25 14:36 04/24/25 14:36
Last Documented Vital Signs
Temp Pulse Resp BP Pulse Ox
98.2 F 81 21 124/79 98
04/24/25 14:36 04/24/25 20:15 04/24/25 20:15 04/24/25 20:00 04/24/25 20:15
<Ana Rome PA-C - Last Filed: 04/25/25 01:34>
Orders/Labs/Results
Orders:
Orders
04/24/25 14:43
Complete Blood Count/With Diff Urgent
Comprehensive Metabolic Panel Urgent
HCG, Serum Qualitative Screen Urgent
Comment: ADD ON
Lactic Acid Urgent
Lipase Urgent
04/24/25 15:04
CT Abd/Pel (IV only)-DH only Urgent
Comment:
Reason For Exam: right sided abd pain, recent colectomy, no PO
Diphenhydramine [Benadryl] 50 mg IV NOW STA
HYDROmorphone [Dilaudid] 1 mg IV NOW STA
Hydrocortisone Sod Succinate [Solu-Cortef] 200 mg IV NOW STA
Ondansetron Injectable [Zofran] 4 mg IV NOW STA
Test Result ONCE
04/24/25 15:08
0.9% Sodium Chloride 500 ml [Nss] 500 ml IV BOLUS
04/24/25 15:33
Add On- LAB Urgent
Comments:: SERUM HCG QUALITATIVE
Tests Added?: SERUM HCG QUALITATIVE
04/24/25 18:34
US Abdomen Complete/Upper Urgent
Comment: per surgery
Reason For Exam: RUQ pain
04/24/25 18:49
0.9% Sodium Chloride 500 ml [Nss] 500 ml IV BOLUS
04/24/25 18:51
HCG, Urine Qualitative Screen Urgent
Date Specimen was Collected: 04/24/25
Time Specimen was Collected: 18:48
Comment: ADDON
Urinalysis Reflex To Culture Urgent
Date Specimen was Collected: 04/24/25
Time Specimen was Collected: 18:48
Test Result ONCE
04/24/25 18:53
Add On- LAB Urgent
Comments:: hcg urine qualitative
Tests Added?: hcg urine qualitative
Abnormal Lab Results
04/24/25 04/24/25
14:43 18:51
BUN 4 L mg/dl
(7-17)
Creatinine 0.5 L mg/dL
(0.6-1.0)
Glucose 101 H mg/dl
(70-99)
Lactic Acid 2.1 H mmol/L
(0.7-2.0)
Calcium 10.6 H mg/dl
(8.4-10.2)
Albumin 5.4 H g/dl
(3.5-5.0)
Lipase 375 H U/L
(23-300)
Urine Ketones 1+ A
(Negative)
04/24/25 14:43
04/24/25 14:43
Vital Signs
Initial and Last Documented VS:
Initial Vital Signs
Temp Pulse Resp BP Pulse Ox
98.2 F 86 18 149/82 99
04/24/25 14:36 04/24/25 14:36 04/24/25 14:36 04/24/25 14:36 04/24/25 14:36
Last Documented Vital Signs
Temp Pulse Resp BP Pulse Ox
98.2 F 81 21 124/79 98
04/24/25 14:36 04/24/25 20:15 04/24/25 20:15 04/24/25 20:00 04/24/25 20:15
<Dariel Prescott Jr., PA-C - Last Filed: 04/26/25 00:12>
MDM/Problems Addressed
MDM/Problems Addressed:
50-year-old female presenting to the emergency department today with concerns of abdominal pain that was sharp severe and ongoing over the past hour or so. Recently had a full colectomy at [facility] by Dr. Jorge Cote. The phone number for the
practice is [phone]. CT scan ordered for further assessment.
<Dariel Prescott Jr., PA-C - Last Filed: 04/26/25 00:12>
*Pulse Oximetry
SaO2: 99
Oxygen Mode of Delivery: Room air
<Ana Rome PA-C - Last Filed: 04/25/25 01:34>
*Pulse Oximetry
Patient hypoxic: no
*Critical Care Note
Total Time (30-74mins, 75-104mins- exclusive of procedures): Not Applicable
<Aan Rome PA-C - Last Filed: 04/25/25 01:34>
Update Note
Update Note:
Update 4:40 PM: Assumed care of patient pending CT scan. She is currently asymptomatic. Unfortunately�patient unable to tolerate oral contrast and will plan for CT scan with IV contrast only�Will prep patient with Solu-Medrol/Benadryl given
history of contrast allergy. Dispo pending CT scan.
Update: CT scan reveals mildly dilated mid to distal small bowel loops either possible mild ileus versus enteritis less likely small bowel obstruction. I did call and discussed findings with patient's general surgeon group, Dr. Damian at [facility]. He feels symptoms do not represent small bowel obstruction and no concerns from surgical perspective. Reviewed lab findings with general surgery, as well. He recommends abdominal ultrasound given location of pain with plan for
possible discharge if negative.
I suspect that mild elevation in lactic acid, hypercalcemia, and lipase are secondary to dehydration. Will give additional bolus IV fluids while ultrasound pending.
Update: Abdominal ultrasound without any acute abnormality. I did reassess patient multiple times at bedside. She appears comfortable. Abdomen remains soft with mild tenderness in right mid abdomen. She has not had any additional episodes of
vomiting. Given some persistent degree of discomfort�I did offer patient admission for observation/pain management versus discharge home with supportive care and very strict return precautions. Shared decision making utilized and patient will plan
to go home and monitor symptoms closely. She will follow-up with her GI doctor as well as primary care for further evaluation and management. She does have pain management medication at home as prescribed by general surgeon. Patient and her
family comfortable with plan. Discharged in stable condition.
ED Attending Note
<Dariel Prescott Jr., PA-C - Last Filed: 04/26/25 00:12>
-
Portions of this chart may have been created with voice recognition software.� Occasional wrong word or��sound alike� substitutions may have occurred due to the inherent limitations of voice recognition software.
Discharge Plan
Departure
Patient Disposition: Home (Routine Discharge)
Date of Disposition: 04/24/25
Time of Disposition: 20:43
Patient with high blood pressure during this ER visit?: Yes
Condition: Good
Discharge Problem:
Abdominal pain
Instructions: Abdominal Pain, BLOOD PRESSURE
Prescriptions:
No Action
cetirizine [Zyrtec] 10 mg Tablet
10 mg PO DAILY
pantoprazole [Protonix] 40 mg Tablet,Delayed Release (Dr/Ec)
40 mg PO DAILY
pregabalin [Lyrica] 75 mg Capsule
75 mg PO BID
Patient Comments:
04/12/24: Patient would like to hold this medication while in the hospital
levothyroxine 50 mcg Tablet
50 mcg PO DAILY
hyoscyamine sulfate 0.125 mg tablet, sublingual
0.125 mg PO Q8HPRN PRN (Reason: nausea)
montelukast 10 mg Tablet
10 mg PO HS
ondansetron 4 mg Tablet,Disintegrating
4 mg PO DAILYPRN PRN (Reason: nausea)
Systane (PF) 0.4-0.3 % Dropperette
1 drp BOTH EYES Q6HPRN PRN (Reason: dry eyes)
baclofen 5 mg Tablet
5 mg PO Q8HPRN PRN (Reason: muscle spasm)
Nurtec ODT 75 mg Tablet,Disintegrating
75 mg PO DAILYPRN PRN (Reason: migraines)
lorazepam 0.5 mg Tablet
0.5 mg PO Q8HPRN PRN (Reason: anxiety) Qty: 20 0RF
Patient Comments:
04/12/24: last filled 03/30/24 for 20 tablets over 7 days
metoclopramide HCl 10 mg Tablet
10 mg PO AC Qty: 90 0RF
oxycodone 5 mg Tablet
5 mg PO Q4HPRN PRN (Reason: moderate pain) Qty: 30 0RF
Patient Comments:
04/12/24: last filled 04/11/24 for 25 tablets over 7 days
metronidazole 500 mg Tablet
500 mg PO TID
ciprofloxacin HCl 500 mg Tablet
500 mg PO BID
acetaminophen [Tylenol Extra Strength] 500 mg Tablet
1,000 mg PO Q6HPRN PRN (Reason: mild pain)
fluoxetine 10 mg Capsule
10 mg PO DAILY
Patient Comments:
04/12/24: Patient would like to hold this medication while in the hospital
fluconazole 100 mg tablet
100 mg PO DAILYPRN PRN (Reason: yeast infection)
alprazolam [Xanax] 0.5 mg Tablet
0.5 mg PO BID
polyethylene glycol 3350 [HealthyLax] 17 gram Powder In Packet
17 g PO BID Qty: 60 0RF
Referrals:
Nino Bose MD [Family Provider, Family Practice]
Activity Restrictions/Additional Instructions:
RETURN TO THE EMERGENCY DEPARTMENT ANY FEVER, CHILLS, INTRACTABLE NAUSEA/VOMITING, INABILITY TO HAVE A BOWEL MOVEMENT, SEVERE/PERSISTENT ABDOMINAL PAIN, WORSENING CURRENT SYMPTOMS, OR ANY OTHER CONCERNS
- As discussed - you should follow-up closely with your GI doctor for further evaluation/management to ensure that your symptoms improve.
- It is very important stay well-hydrated. You can take Tylenol/Motrin and/or your pain medications as prescribed.
- Keep appointment with general surgeon for follow-up.
Monitor your symptoms very closely and return to the emergency department with any acute worsening/new symptoms or any other concerns
Interventions
Interventions:
*Risk Screen - Suicide Last Done: 04/24/25 15:03
*General Assessment Last Done: 04/24/25 15:03
*Neglect/Abuse Screening Last Done: 04/24/25 15:03
*ED- Fall Risk Assessment Last Done: 04/24/25 15:03
*ED COVID-19 Vaccine History Last Done: 04/24/25 15:03
*Nursing Disposition Last Done: 04/24/25 20:56
JP-Thczzm-Uagsjaffvj Assessment Last Done: 04/24/25 15:05
Discharge Date and Time
Discharge Date/Time: 04/24/25 20:59
Print Language: WOLOF
[2025-04-24 17:26] LABS: HCG, Serum Qualitative Screen Positive
[2025-04-24 19:06] LABS: Urine Character Clear (Clear)
[2025-04-24 19:07] LABS: HCG, Urine Qualitative Screen Negative
== END 2025-04-24 20:59 | disposition home or self-care (01) ==
LOC: EMR 14:35
PROVIDERS: Emergency Medicine; Physician Assistant; EMERGENCY PHYSICIAN Emergency Medicine; FAMILY PHYSICIAN Family Medicine
DX: R10.11 Right upper quadrant pain (principal); J45.909 Unspecified asthma, uncomplicated; K58.9 Irritable bowel syndrome, unspecified; M32.9 Systemic lupus erythematosus, unspecified; I73.00 Raynaud's syndrome without gangrene; G50.0 Trigeminal neuralgia; G90.1 Familial dysautonomia [Riley-Day]; Z90.49 Acquired absence of other specified parts of digestive tract; Z91.041 Radiographic dye allergy status
CPT/HCPCS: 99284; 96374; 96375 ×3; 96361 ×3; 74177; 76700; 80053; 81003; 81025; 83605; 83690; 84703; 85025; Q9967

== ENCOUNTER 2025-04-25 23:46 | Emergency (ER) | payer OTHER, SELFPAY ==
[2025-04-25 23:52] VITALS: BP 138/99
[2025-04-26 00:28] VITALS: BP 132/90; BMI 22.5
--- NOTE | 2025-04-26 00:30 | ED.GENMED ---
History of Present Illness
General
Chief Complaint: Abdominal Pain
Source: patient, records and family (Mother)
Exam Limitations: none
Time Seen by Provider: 04/26/25 00:00
Nursing documentation reviewed up to this point in time: agreed with
History of Present Illness
History of Present Illness:
50-year-old female with extensive medical history returns to the ER this evening for abdominal pain with severe nausea. Patient is postop from a total colectomy with Dr. Cote at [facility] on 03/21/2025. She was seen yesterday for abdominal
pain�has had some mild pain since surgery but had acute worsening last night prompting ER visit. CT showed some nonspecific dilation of distal small bowel loops. She also had an unremarkable upper abdominal ultrasound. She was treated
symptomatically, imaging results reviewed with surgery team at [facility] and ultimately patient was discharged. She says that over the past 24 hours since discharge she has had continued pain although whereas yesterday it was in the right upper
abdomen she now has pain in the right lower abdomen. She says that she feels very bloated. She says that she has had severe nausea has not been able to tolerate anything by mouth. She apparently called her surgeon who recommended she go to the ER
at [facility] and while they were and route patient became very anxious and they decided to come here first to be evaluated and transferred.
Past History
Past History
ED Past Medical History: Asthma, Other (Reynauds, lupus, trigeminal neuralgia, dysautonomia) and Other (IBS, diverticulosis, diverticulitis)
ED Past Surgical History: Gynecological and Urological (Daniela procedure)
Social History
Tobacco: Non-smoker
Alcohol: None
Drug: None
Personal:
Living: with family
Employment: Employed
Review of Systems
Review of Systems
All Other Systems: ROS reviewed and negative except as documented in HPI and ROS
Constitutional: Denies fever
Respiratory: Denies trouble breathing
Cardiac: Denies chest pain
ABD/GI: Reports abdominal pain, nausea, vomiting and diarrhea
: Denies flank pain
Musculoskeletal: Denies neck pain or back pain
Neurological: Denies headache
Phy Exam
Physical Exam
Physical Exam:
General: Awake, alert, appears uncomfortable and very anxious
Head: Normocephalic, atraumatic
Eyes: Conjunctiva normal, sclera anicteric
Throat: Airway intact, handling secretions
Neck: Trachea midline, supple without meningismus
Lungs: Clear to auscultation bilaterally, no wheezing, rales, rhonchi
Heart: Regular rate and rhythm, no murmurs, gallops, or rubs
Abd: Soft, nondistended, mild to moderate tenderness diffusely more significant right upper to mid abdomen; well-healed incision left mid abdomen with small residual wound with packing in place but no drainage or signs of infection
Neuro: Grossly intact
Extremities: Warm and well-perfused
Scores
Heart Failure Risk
Heart Failure Risk Score: Not Applicable
Heart Score for Chest Pain Patients
STEMI patient?: Not applicable
Withdrawal Assessment of Alcohol
Withdrawal Assessment Completed?: Not applicable
Course
Orders/Labs/Results
Orders:
Orders
04/26/25 00:17
Electrocardiogram (*1) Urgent
Reason for Study: QTc Monitoring
EKG- Treatment ONCE
0.9% Sodium Chloride 1000 ml [Nss] 1,000 ml IV BOLUS
HYDROmorphone [Dilaudid] 0.5 mg IV NOW STA
Ondansetron Injectable [Zofran] 4 mg IV NOW STA
04/26/25 00:32
Complete Blood Count/With Diff Urgent
Comprehensive Metabolic Panel Urgent
Lipase Urgent
Magnesium Urgent
Phos [Phosphorus] Urgent
Vital Signs
Initial and Last Documented VS:
Initial Vital Signs
Temp Pulse Resp BP Pulse Ox
36.7 C 97 32 138/99 100
04/25/25 23:52 04/25/25 23:52 04/25/25 23:52 04/25/25 23:52 04/25/25 23:52
Last Documented Vital Signs
Temp Pulse Resp BP Pulse Ox
36.7 C 97 32 138/99 99
04/25/25 23:52 04/25/25 23:52 04/25/25 23:52 04/25/25 23:52 04/26/25 00:38
MDM/Problems Addressed
Differential Diagnosis Includes:
Enteritis, bowel obstruction, ileus
MDM/Problems Addressed:
50-year-old female presents for evaluation of abdominal pain and severe nausea 1 month out from total colectomy at [facility]. She was here last night and was treated symptomatically and discharged after reviewing imaging with surgeon.
She returns with continued significant pain and nausea. Has not been able to take anything by mouth. Reviewed imaging from yesterday not clearly obstructed and she is still having bowel movements although she says she is passing less stool than
she has been since surgery (initially was having up to 10 loose stools a day, now she says she is only having about 2 loose stools per day). Will place an IV and send labs. Hold on repeat imaging given extensive imaging yesterday and patient's
known dye allergy. [facility] visit with poorly controlled symptoms in 24 hours I think she should be admitted and I think it would be most appropriate to transfer her to care of her
surgical team for assessment by them.
Discussed case with the surgeon at [facility] who accepted patient for transfer unfortunately no beds available upstairs. After discussion with transfer center unclear when the bed would be available possibly in the morning but would depend on
discharges. I do think that given that this is the patient's second visit and she is having progressive symptoms it would be appropriate to have her evaluated by her surgical team as soon as possible and for this reason case was discussed with ED
attending for an ER to ER transfer and patient was accepted. Will continue to monitor pending transport. Accepting physician Dr. Nelly Mullins.
*Radiology
Radiology exam reviewed: radiology read reviewed (Reviewed radiology reports from yesterday)
*Pulse Oximetry
SaO2: 99
Oxygen Mode of Delivery: Room air
Patient hypoxic: no (99%)
*EKG
Interpreted by ED Provider?: Yes
Comparison EKG: no changes
Heart Rate: 70
Rate: normal
Rhythm: sinus
[place]: normal axis
Interval: normal interval and normal QT interval
QRS Pattern: normal QRS
Ischemia: no ischemia
*Critical Care Note
Total Time (30-74mins, 75-104mins- exclusive of procedures): Not Applicable
Data Reviewed
Review of Other/Old Records Reveals: Labs and Records
Source: patient, records and family
Further Testing Considered But Not Given:
Considered repeat CT scan
Patient Management
Discussion with other providers: Solution Engineer (Discussed with surgeon at [facility])
Escalation/DeEscalation of care consider admission/obs:
Admission indicated�transfer to care of surgical team
ED Attending Note
-
Portions of this chart may have been created with voice recognition software.� Occasional wrong word or��sound alike� substitutions may have occurred due to the inherent limitations of voice recognition software.
Discharge Plan
Departure
Patient Disposition: Acute [facility]
Date of Disposition: 04/26/25
Time of Disposition: 00:18
Discharge Problem:
Enteritis, Abdominal pain
Prescriptions:
No Action
cetirizine [Zyrtec] 10 mg Tablet
10 mg PO DAILY
pantoprazole [Protonix] 40 mg Tablet,Delayed Release (Dr/Ec)
40 mg PO DAILY
pregabalin [Lyrica] 75 mg Capsule
75 mg PO BID
Patient Comments:
04/12/24: Patient would like to hold this medication while in the hospital
levothyroxine 50 mcg Tablet
50 mcg PO DAILY
hyoscyamine sulfate 0.125 mg tablet, sublingual
0.125 mg PO Q8HPRN PRN (Reason: nausea)
montelukast 10 mg Tablet
10 mg PO HS
ondansetron 4 mg Tablet,Disintegrating
4 mg PO DAILYPRN PRN (Reason: nausea)
Systane (PF) 0.4-0.3 % Dropperette
1 drp BOTH EYES Q6HPRN PRN (Reason: dry eyes)
baclofen 5 mg Tablet
5 mg PO Q8HPRN PRN (Reason: muscle spasm)
Nurtec ODT 75 mg Tablet,Disintegrating
75 mg PO DAILYPRN PRN (Reason: migraines)
lorazepam 0.5 mg Tablet
0.5 mg PO Q8HPRN PRN (Reason: anxiety) Qty: 20 0RF
Patient Comments:
04/12/24: last filled 03/30/24 for 20 tablets over 7 days
metoclopramide HCl 10 mg Tablet
10 mg PO AC Qty: 90 0RF
oxycodone 5 mg Tablet
5 mg PO Q4HPRN PRN (Reason: moderate pain) Qty: 30 0RF
Patient Comments:
04/12/24: last filled 04/11/24 for 25 tablets over 7 days
metronidazole 500 mg Tablet
500 mg PO TID
ciprofloxacin HCl 500 mg Tablet
500 mg PO BID
acetaminophen [Tylenol Extra Strength] 500 mg Tablet
1,000 mg PO Q6HPRN PRN (Reason: mild pain)
fluoxetine 10 mg Capsule
10 mg PO DAILY
Patient Comments:
04/12/24: Patient would like to hold this medication while in the hospital
fluconazole 100 mg tablet
100 mg PO DAILYPRN PRN (Reason: yeast infection)
alprazolam [Xanax] 0.5 mg Tablet
0.5 mg PO BID
polyethylene glycol 3350 [HealthyLax] 17 gram Powder In Packet
17 g PO BID Qty: 60 0RF
Referrals:
Nino Bose MD [Family Provider, Family Practice]
Hospital Transfer
Other hospital: [facility]
I certify that the patient requires transfer: Yes
Discussed case with accepting physician: Dr. Mullins
Reason for transfer: continuity of care PCP
Interventions
Interventions:
*Risk Screen - Suicide Last Done: 04/25/25 23:52
*General Assessment Last Done: 04/25/25 23:52
*Neglect/Abuse Screening Last Done: 04/25/25 23:52
*ED- Fall Risk Assessment Last Done: 04/25/25 23:52
*ED COVID-19 Vaccine History Last Done: 04/25/25 23:52
IT-Faxleo-Mrooxrympu Assessment Last Done: 04/26/25 00:14
Discharge Date and Time
Print Language: VIETNAMESE
[2025-04-26] MEDS: ZOFRAN 4 MG IV ×2 (00:35→03:14)
[2025-04-26] MEDS: DILAUDID 0.5 MG IV (00:35)
[2025-04-26] MEDS: NSS 1000 IV (00:35)
[2025-04-26 01:00] VITALS: BP 141/92
[2025-04-26 01:11] LABS: Hematocrit 34.3 % (37.0-47.0); Hemoglobin 12.0 g/dL (12.0-16.0); Mean Corp Hgb Conc. 35.0 g/dL (33.0-37.0); Mean Corpuscular Volume 89.8 fL (81.0-99.0); Nucleated Red Blood Cells % 0 %; Platelet Count 255 10^3/uL (130-400); Red Cell Dist. Width 13.0 % (11.5-14.5)
[2025-04-26 01:29] LABS: ALT (SGPT) 16 U/L (0-35); AST (SGOT) 23 U/L (14-36); Albumin 4.3 g/dl (3.5-5.0); Alkaline Phosphatase 58 U/L (38-126); Blood Urea Nitrogen < 2 mg/dl (7-17); Calcium 9.4 mg/dl (8.4-10.2); Carbon Dioxide 22 mmol/L (22-30); Chloride 112 mmol/L (98-107); Estimated Creatinine Clearance 100 ml/min; Glucose 95 mg/dl (70-99); Lipase 172 U/L (23-300); Magnesium 1.8 mg/dl (1.6-2.3); Potassium 3.6 mmol/L (3.5-5.1); Sodium 143 mmol/L (135-145); Total Protein 6.5 g/dl (6.3-8.2); eGFR > 60.00
[2025-04-26 02:00] VITALS: BP 126/86
[2025-04-26 03:00] VITALS: BP 130/78
[2025-04-26] MEDS: VALIUM INJECTION 2 MG IV (03:23)
== END 2025-04-26 04:15 | disposition short-term general hospital (02) ==
LOC: EMR 23:46
PROVIDERS: EMERGENCY PHYSICIAN Emergency Medicine; FAMILY PHYSICIAN Family Medicine
DX: K52.9 Noninfective gastroenteritis and colitis, unspecified (principal); R11.0 Nausea; J45.909 Unspecified asthma, uncomplicated; Z90.49 Acquired absence of other specified parts of digestive tract; Z91.041 Radiographic dye allergy status
CPT/HCPCS: 96374; 96375; 96376; 96361; 99285; 80053; 83690; 83735; 84100; 85025; 93005

== ENCOUNTER 2025-05-18 16:32 | Emergency (ER) | payer OTHER, SELFPAY ==
[2025-05-18 16:37] VITALS: BP 130/91
[2025-05-18 20:35] VITALS: BP 116/80
[2025-05-18 20:37] VITALS: BMI 22.0
--- NOTE | 2025-05-18 20:50 | VATNOTE ---
Called by PA in ER to assess Rt. arm Picc. Drsg. is intact, dated 05/13, flushes briskly with good blood return. No edema noted, denies pain. Pt. states, 'I could see the picc in my chest yesterday when getting my IVF.' Recommend CXR for tip
placement and US. Will follow.
[2025-05-18 21:13] VITALS: BP 113/83
--- NOTE | 2025-05-18 21:34 | ED.GENMED ---
History of Present Illness
<Tatiana Levy PA-C - Last Filed: 05/21/25 09:09>
General
Chief Complaint: Catheter/Tube Problem
Time Seen by Provider: 05/18/25 18:35
History of Present Illness
History of Present Illness:
see MDM
Past History
<Tatiana Levy PA-C - Last Filed: 05/21/25 09:09>
Past History
ED Past Medical History: Asthma, Other (Reynauds, lupus, trigeminal neuralgia, dysautonomia) and Other (IBS, diverticulosis, diverticulitis)
ED Past Surgical History: Gynecological and Urological (Daniela procedure)
Social History
Tobacco: Non-smoker
Alcohol: None
Drug: None
Personal:
Living: with family
Employment: Employed
Phy Exam
<Tatiana Levy PA-C - Last Filed: 05/21/25 09:09>
Physical Exam
Physical Exam:
see MDM
Course
<Tatiana Levy PA-C - Last Filed: 05/21/25 09:09>
Orders/Labs/Results
Orders:
Orders
05/18/25 19:05
CR Chest - 2 Views Urgent
Comment:
Reason For Exam: PICC eval
05/18/25 19:28
Venous Doppler Upr Ext Right [US Periph Venous UPPER Ext RT] Urgent
Comment:
Reason For Exam: pain arm, picc line
05/18/25 23:48
CBC/With Diff [Complete Blood Count/With Diff] Urgent
CMP [Comprehensive Metabolic Panel] Urgent
05/19/25 00:33
Apixaban [Eliquis] 10 mg PO ONCE ONE
05/19/25 01:11
Alprazolam [Xanax] 0.5 mg PO NOW STA
Abnormal Lab Results
05/19/25
00:00
WBC 4.7 L 10^3/uL
(4.8-10.8)
RBC 3.86 L 10^6/uL
(4.20-5.40)
Hgb 11.7 L g/dL
(12.0-16.0)
Hct 35.1 L %
(37.0-47.0)
Neutrophils % 41.4 L %
(42.2-75.2)
Chloride 108 H mmol/L
(98-107)
BUN 5 L mg/dl
(7-17)
Creatinine 0.5 L mg/dL
(0.6-1.0)
05/19/25 00:00
05/19/25 00:00
Vital Signs
Initial and Last Documented VS:
Initial Vital Signs
Temp Pulse Resp BP Pulse Ox
36.8 C 91 16 130/91 99
05/18/25 16:37 05/18/25 16:37 05/18/25 16:37 05/18/25 16:37 05/18/25 16:37
Last Documented Vital Signs
Temp Pulse Resp BP Pulse Ox
36.8 C 78 14 122/80 98
05/18/25 16:37 05/19/25 02:21 05/19/25 02:21 05/19/25 02:21 05/19/25 02:21
<Josefina Miguel MD - Last Filed: 05/18/25 22:26>
Orders/Labs/Results
Orders:
Orders
05/18/25 19:05
CR Chest - 2 Views Urgent
Comment:
Reason For Exam: PICC eval
05/18/25 19:28
Venous Doppler Upr Ext Right [US Periph Venous UPPER Ext RT] Urgent
Comment:
Reason For Exam: pain arm, picc line
05/18/25 23:48
CBC/With Diff [Complete Blood Count/With Diff] Urgent
CMP [Comprehensive Metabolic Panel] Urgent
05/19/25 00:33
Apixaban [Eliquis] 10 mg PO ONCE ONE
05/19/25 01:11
Alprazolam [Xanax] 0.5 mg PO NOW STA
Abnormal Lab Results
05/19/25
00:00
WBC 4.7 L 10^3/uL
(4.8-10.8)
RBC 3.86 L 10^6/uL
(4.20-5.40)
Hgb 11.7 L g/dL
(12.0-16.0)
Hct 35.1 L %
(37.0-47.0)
Neutrophils % 41.4 L %
(42.2-75.2)
Chloride 108 H mmol/L
(98-107)
BUN 5 L mg/dl
(7-17)
Creatinine 0.5 L mg/dL
(0.6-1.0)
05/19/25 00:00
05/19/25 00:00
Vital Signs
Initial and Last Documented VS:
Initial Vital Signs
Temp Pulse Resp BP Pulse Ox
36.8 C 91 16 130/91 99
05/18/25 16:37 05/18/25 16:37 05/18/25 16:37 05/18/25 16:37 05/18/25 16:37
Last Documented Vital Signs
Temp Pulse Resp BP Pulse Ox
36.8 C 78 14 122/80 98
05/18/25 16:37 05/19/25 02:21 05/19/25 02:21 05/19/25 02:21 05/19/25 02:21
<Dariel Prescott Jr., PA-C - Last Filed: 05/19/25 17:32>
Orders/Labs/Results
Orders:
Orders
05/18/25 19:05
CR Chest - 2 Views Urgent
Comment:
Reason For Exam: PICC eval
05/18/25 19:28
Venous Doppler Upr Ext Right [US Periph Venous UPPER Ext RT] Urgent
Comment:
Reason For Exam: pain arm, picc line
05/18/25 23:48
CBC/With Diff [Complete Blood Count/With Diff] Urgent
CMP [Comprehensive Metabolic Panel] Urgent
05/19/25 00:33
Apixaban [Eliquis] 10 mg PO ONCE ONE
05/19/25 01:11
Alprazolam [Xanax] 0.5 mg PO NOW STA
Abnormal Lab Results
05/19/25
00:00
WBC 4.7 L 10^3/uL
(4.8-10.8)
RBC 3.86 L 10^6/uL
(4.20-5.40)
Hgb 11.7 L g/dL
(12.0-16.0)
Hct 35.1 L %
(37.0-47.0)
Neutrophils % 41.4 L %
(42.2-75.2)
Chloride 108 H mmol/L
(98-107)
BUN 5 L mg/dl
(7-17)
Creatinine 0.5 L mg/dL
(0.6-1.0)
05/19/25 00:00
05/19/25 00:00
Vital Signs
Initial and Last Documented VS:
Initial Vital Signs
Temp Pulse Resp BP Pulse Ox
36.8 C 91 16 130/91 99
05/18/25 16:37 05/18/25 16:37 05/18/25 16:37 05/18/25 16:37 05/18/25 16:37
Last Documented Vital Signs
Temp Pulse Resp BP Pulse Ox
36.8 C 78 14 122/80 98
05/18/25 16:37 05/19/25 02:21 05/19/25 02:21 05/19/25 02:21 05/19/25 02:21
<Tatiana Levy PA-C - Last Filed: 05/21/25 09:09>
MDM/Problems Addressed
Differential Diagnosis Includes:
see mdm
MDM/Problems Addressed:
Note:
CHIEF COMPLAINT(S)
Concerns regarding peripherally inserted central catheter (PICC) line appearance and functionality.
HISTORY OF PRESENT ILLNESS
The patient 50 a female with a history of a total abdominal colectomy, ileal take down (most recently 3 weeks ago), presents with concerns over her PICC line. She reports that the PICC line was placed two weeks ago to assist in hydration management
due to chronic issues with gastrointestinal dysmotility and prior ileus. The patient administers her own intravenous fluids at home on Tuesday, Tuesday, and Tuesday with the assistance of a home infusion nurse who changes the dressing on Mondays.
The patient noticed a change in sensation along her arm where the PICC line is located last week, describing it as feeling 'a little bit weird' but not painful. She also observed a purplish discoloration of the veins in the area yesterday after
intravenous fluid administration, which appears less pronounced today. Despite the discoloration, the PICC line functions properly, with successful flushing and blood return confirmed by her home infusion nurse. The nurse advised the patient to
visit the emergency department to further evaluate the issue.
The patient has a history of perforated bowel in 2023, leading to the current abdominal condition. 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 She expressed concerns about potential
hospitalization due to complications associated with the PICC line. The patient reports normal bowel movements, though liquid in consistency.
PHYSICAL EXAM
- Vital signs reviewed.
GENERAL: Alert , in no apparent distress
EYE: pupils equal and reactive
NECK: Supple
ENT: o/p clr, mmm.
CARDIAC: Regular rate and rhythm .
Can palpate the PICC line through the chest wall though it does not seem superficial, nontender, no erythema
No murmur
LUNGS: Clear breath sounds bilaterally, no acute respiratory distress, no wheezes/rales/rhonchi
ABDOMEN: Soft, without focal tenderness, no r/g, no cvat, normal bowel sounds
NEUROLOGICAL: Alert and oriented, no focal neuro deficits
SKIN: Warm and dry, skin intact. No significant skin changes, the site looks good
MUSCULOSKELETAL: No edema to the arm, pulses intact, full range of motion
PSYCH: Normal and appropriate interaction.
PLAN
- Ordered an ultrasound to evaluate the PICC line placement and function.
- Consult with the vascular access nurse for potential removal or adjustment of the PICC line if necessary.
- The patient was informed about the possibility of PICC line removal if a clot is present or malfunction is detected.
DIFFERENTIAL DIAGNOSIS
The Differential Diagnosis includes, in no particular order and is not limited to:
1. Thrombophlebitis of the vein with PICC line
2. Catheter-related bloodstream infection
3. Deep vein thrombosis
4. Malposition of the PICC line
5. Hematoma formation
6. Central venous stenosis
7. Local infection at the PICC site
8. Mechanical phlebitis
9. PICC line occlusion
10. Vascular access device dysfunction or dislodgement
50-year-old female with a history of a PICC line for IV hydration after recent ileus following a pretty complicated GI surgery presents for concerns that her PICC line was malpositioned. She says over the last couple days she has felt it be full in
that area after she gave herself some fluids which she does 3 times a week. She has not had any pain, shortness of breath or fever
Patient's had some complications and gets anxious so she would feel better with an assessment. On exam there is really no signs of any malpositioning of the PICC line, there is no signs of a DVT but patient's reassurance I did order an ultrasound.
I asked the vascular access nurse to evaluate the PICC line which she did. She asked for chest x-ray and it is independently reviewed by me but also radiology read it within a appropriate positioning of the PICC line. Patient will be discharged
pending ultrasound
<Tatiana Levy PA-C - Last Filed: 05/21/25 09:09>
*Pulse Oximetry
SaO2: 96
Oxygen Mode of Delivery: Room air
Patient hypoxic: no
*Critical Care Note
Total Time (30-74mins, 75-104mins- exclusive of procedures): Not Applicable
<Dariel Prescott Jr., PA-C - Last Filed: 05/19/25 17:32>
Update Note
Update Note:
Patient was notified of the findings on ultrasound of blood clot. The case was discussed with hematology they recommend starting anticoagulant and pulling the PICC line. Otherwise she was started on Eliquis and safe for outpatient management with
close outpatient follow-up. Return precautions were given.
ED Attending Note
<Tatiana Levy PA-C - Last Filed: 05/21/25 09:09>
-
Portions of this chart may have been created with voice recognition software.� Occasional wrong word or��sound alike� substitutions may have occurred due to the inherent limitations of voice recognition software.
<Josefina Miguel MD - Last Filed: 05/18/25 22:26>
ED Attending Note
Patient seen and examined by attending physician: Yes
I performed the substantive portion of visit, reviewed & personally made and approve the management plan that is documented in note by myself or JEANINE.: Yes
ED Attending Note:
Patient's heart sounds regular. Lungs clear. Patient's right upper extremity has soft compartments with strong pulses in right wrist.
Discharge Plan
Departure
Patient Disposition: Home (Routine Discharge)
Date of Disposition: 05/19/25
Time of Disposition: 01:31
Patient with high blood pressure during this ER visit?: No
Condition: Good
Discharge Problem:
Encounter for assessment of peripherally inserted central catheter (PICC), DVT (deep venous thrombosis)
Instructions: Apixaban, How to care for a peripherally inserted central catheter (PICC), Deep vein thrombosis (blood clot in the arm)
Prescriptions:
New
Eliquis DVT-PE Treat 30D Start 5 mg (74 tabs) tablets,dose pack
See Rx Instructions .ROUTE .COMPLEX Qty: 74 0RF
Rx Instructions:
orally per package directions
No Action
cetirizine [Zyrtec] 10 mg Tablet
10 mg PO DAILY
pantoprazole [Protonix] 40 mg Tablet,Delayed Release (Dr/Ec)
40 mg PO DAILY
pregabalin [Lyrica] 75 mg Capsule
75 mg PO BID
Patient Comments:
04/12/24: Patient would like to hold this medication while in the hospital
levothyroxine 50 mcg Tablet
50 mcg PO DAILY
hyoscyamine sulfate 0.125 mg tablet, sublingual
0.125 mg PO Q8HPRN PRN (Reason: nausea)
montelukast 10 mg Tablet
10 mg PO HS
ondansetron 4 mg Tablet,Disintegrating
4 mg PO DAILYPRN PRN (Reason: nausea)
Systane (PF) 0.4-0.3 % Dropperette
1 drp BOTH EYES Q6HPRN PRN (Reason: dry eyes)
baclofen 5 mg Tablet
5 mg PO Q8HPRN PRN (Reason: muscle spasm)
Nurtec ODT 75 mg Tablet,Disintegrating
75 mg PO DAILYPRN PRN (Reason: migraines)
lorazepam 0.5 mg Tablet
0.5 mg PO Q8HPRN PRN (Reason: anxiety) Qty: 20 0RF
Patient Comments:
04/12/24: last filled 03/30/24 for 20 tablets over 7 days
metoclopramide HCl 10 mg Tablet
10 mg PO AC Qty: 90 0RF
oxycodone 5 mg Tablet
5 mg PO Q4HPRN PRN (Reason: moderate pain) Qty: 30 0RF
Patient Comments:
04/12/24: last filled 04/11/24 for 25 tablets over 7 days
metronidazole 500 mg Tablet
500 mg PO TID
ciprofloxacin HCl 500 mg Tablet
500 mg PO BID
acetaminophen [Tylenol Extra Strength] 500 mg Tablet
1,000 mg PO Q6HPRN PRN (Reason: mild pain)
fluoxetine 10 mg Capsule
10 mg PO DAILY
Patient Comments:
04/12/24: Patient would like to hold this medication while in the hospital
fluconazole 100 mg tablet
100 mg PO DAILYPRN PRN (Reason: yeast infection)
alprazolam [Xanax] 0.5 mg Tablet
0.5 mg PO BID
polyethylene glycol 3350 [HealthyLax] 17 gram Powder In Packet
17 g PO BID Qty: 60 0RF
Referrals:
Nino Bose MD [Family Provider, Family Practice]
Activity Restrictions/Additional Instructions:
You came to the emergency department today with concerns of changes to your PICC line. You are found to have blood clots to your upper extremity. This is treated with an anticoagulant. Please take this as prescribed and follow-up closely as an
outpatient. Return for any worsening, new or concerning symptoms.
Interventions
Interventions:
*Risk Screen - Suicide Last Done: 05/18/25 16:37
*General Assessment Last Done: 05/18/25 16:37
*Neglect/Abuse Screening Last Done: 05/18/25 16:37
*ED- Fall Risk Assessment Last Done: 05/18/25 20:39
*ED COVID-19 Vaccine History Last Done: 05/18/25 20:39
*ED Influenza Vaccine History Last Done: 05/18/25 20:39
*Nursing Disposition Last Done: 05/19/25 02:21
KX-Lzxugz-Frqsyrvkyz Assessment Last Done: 05/19/25 01:45
ED-Female Genitourinary Assessment Last Done: 05/19/25 00:00
Discharge Date and Time
Discharge Date/Time: 05/19/25 02:22
Print Language: TAMAZIGHT
[2025-05-18 21:53] VITALS: BP 118/84
[2025-05-18 22:00] VITALS: BP 116/80
[2025-05-18 23:00] VITALS: BP 155/96
[2025-05-19 00:09] LABS: Hematocrit 35.1 % (37.0-47.0); Hemoglobin 11.7 g/dL (12.0-16.0); Mean Corp Hgb Conc. 33.3 g/dL (33.0-37.0); Mean Corpuscular Volume 90.9 fL (81.0-99.0); Nucleated Red Blood Cells % 0 %; Platelet Count 259 10^3/uL (130-400); Red Cell Dist. Width 13.0 % (11.5-14.5)
[2025-05-19 00:31] LABS: ALT (SGPT) 17 U/L (0-35); AST (SGOT) 20 U/L (14-36); Albumin 4.1 g/dl (3.5-5.0); Alkaline Phosphatase 63 U/L (38-126); Blood Urea Nitrogen 5 mg/dl (7-17); Calcium 9.7 mg/dl (8.4-10.2); Carbon Dioxide 29 mmol/L (22-30); Chloride 108 mmol/L (98-107); Estimated Creatinine Clearance 100 ml/min; Glucose 96 mg/dl (70-99); Potassium 3.7 mmol/L (3.5-5.1); Sodium 142 mmol/L (135-145); Total Protein 6.3 g/dl (6.3-8.2); eGFR > 60.00
[2025-05-19] MEDS: ELIQUIS 10 MG PO (01:06)
[2025-05-19] MEDS: XANAX 0.5 MG PO (01:15)
[2025-05-19 02:03] VITALS: BP 122/80
[2025-05-19 02:21] VITALS: BP 122/80
--- NOTE | 2025-05-19 02:30 | PTCARENOTE ---
PICC Line removed gently with ease,catheter intact,pt tolerated procedure well.
== END 2025-05-19 02:22 | disposition home or self-care (01) ==
LOC: EMR 16:32
PROVIDERS: Physician Assistant; EMERGENCY PHYSICIAN Emergency Medicine; FAMILY PHYSICIAN Family Medicine
DX: Z45.2 Encounter for adjustment and management of vascular access device (principal); I82.B11 Acute embolism and thrombosis of right subclavian vein; I82.611 Acute embolism and thrombosis of superficial veins of right upper extremity; J45.909 Unspecified asthma, uncomplicated; M32.9 Systemic lupus erythematosus, unspecified; K58.9 Irritable bowel syndrome, unspecified; I73.00 Raynaud's syndrome without gangrene; G50.0 Trigeminal neuralgia; G90.1 Familial dysautonomia [Riley-Day]; Z79.01 Long term (current) use of anticoagulants; Z90.49 Acquired absence of other specified parts of digestive tract
CPT/HCPCS: 99284; 71046; 80053; 85025; 93971